=== PATIENT | female | born 1950 | race Caucasian/White ===

== ENCOUNTER 2019-11-23 09:45 | Outpatient (RCR) | payer MEDICARE, SELFPAY ==
--- NOTE | 2019-11-18 10:54 | PTOPEVAL ---
INITIAL PHYSICAL THERAPY EVALUATION and PLAN OF CARE Thank you for referring Azul to [facility]. She will be seen in PT 1x/wk x 3 wks. Please review, sign, date and return this plan of care PORTIA. I agree with and certify that the following plan of care is medically necessary. Referring Physician Date Admitting Provider: Attending Provider: PHYSICIAN NOT ON STAFF Referring Provider: *PT Outpatient Evaluation Start: 11/18/19 09:43 Freq: Status: Active Protocol: Document 11/18/19 09:35 KYM (Rec: 11/18/19 10:51 KYM [id number]) Therapy Assessment Status Assessment Status Assessment Status Evaluation Outpatient Past Medical History Neurological History Hx Neurological Disorders No Significant History Cardiovascular History Hx Hypercholesterolemia Yes Hx Hypertension Yes Respiratory History Hx Respiratory Disorders No Significant History Gastrointestinal History Hx Diverticulitis Yes Hx Gastroesophageal Reflux Disease Yes Hx Other Gastrointestinal Disorders Yes: Rectal prolapse Genitourinary History Hx Genitourinary Disorders No Significant History Musculoskeletal History Hx Arthritis Yes: generalized Hx Fractures Yes: R patella-ORIF Endocrine History Hx Endocrine Disorders No Significant History Reproductive History Hx Hysterectomy Yes: 2010 - Cancer cells - cervix Other History Hx Cancer Yes: basal cell - removed Evaluation Information Problem Diagnosis Rectal prolapse, pelvic floor weakness Onset ~ 3 years ago Subjective Information When performing hygiene post Query Text:As Reported By Patient/ BM felt something, thought it Family was just hemorrhoids. Told PCP about it - was just given cream. Told him this year that she wanted something done about it. Was sent over to [facility]. Defacogram - some residual present, needed to push a second time -but she wasn't feeling well that day. Does have fecal leakage does were a pad. Usually type 4 BM from [place] Stool Chart Does have bouts of diarrhea and constipation at times. Diagnostic Tests Other Tests For This Problem Yes: Defacogram, cystoscopy Prior Level of Function Activity Level (Last 3 Months) Hand Dominance Right
--- NOTE | 2019-12-02 09:34 | PCPTNOTE ---
Patient called & cancelled scheduled appointment this date due to unknown reason. This was her re-eval appointment - will await to see if she reschedules this appointment.
--- NOTE | 2019-12-09 12:57 | PCPTNOTE ---
PHYSICAL THERAPY DISCHARGE NOTE Admitting Provider: Attending Provider: PHYSICIAN NOT ON STAFF Patient:Azul Her Date of :1950 Azul has not returned for any further treatments since 11/23/2019. She called to cancel her 12/02/19 re evaluation appointment and has not called to reschedule. She was seen for 2 visits. She will be discharged from physical therapy at this time. The goals have been partially achieved. She was provided with HEP as well as urge strategies for diarrhea and loose stools. Thank you for referring Azul to [facility]. Please review, sign, date and return this discharge summary PORTIA. I have been updated about Azul's current status and I agree with discharge from the above service at this time. Referring Physician Date
== END 2019-12-10 10:29 | disposition home or self-care (01) ==
LOC: ANHPT 09:45
PROVIDERS: PCP Internal Medicine Infectious Disease
DX: K62.3 Rectal prolapse (principal); N81.89 Other female genital prolapse
CPT/HCPCS: 97110; 97161

== ENCOUNTER → 2020-10-10 10:25 | Outpatient (REF) | payer MEDICARE, SELFPAY | LOC: ANHLAB 10:25 | PROVIDERS: PCP Internal Medicine Infectious Disease; Visit Provider Nurse Practitioner | DX: C44.612 Basal cell carcinoma of skin of right upper limb, including shoulder (principal); C44.712 Basal cell carcinoma of skin of right lower limb, including hip | CPT/HCPCS: 88305 ==

== ENCOUNTER → 2020-11-27 09:34 | Outpatient (REF) | payer MEDICARE, SELFPAY | LOC: ANHLAB 09:34 | PROVIDERS: PCP Internal Medicine Infectious Disease; Visit Provider Nurse Practitioner | DX: C44.712 Basal cell carcinoma of skin of right lower limb, including hip (principal); C44.612 Basal cell carcinoma of skin of right upper limb, including shoulder | CPT/HCPCS: 88305; 88331; 88332 ==

== ENCOUNTER 2024-10-14 00:30 | Day surgery (SDC) | payer MEDICARE, SELFPAY ==
[2024-10-08 09:28] VITALS: BMI 28.1
--- NOTE | 2024-10-08 09:46 | SUR.PREOP ---
Spoke with patient regarding medication Plavix. Verbalizes understanding that the last dose is to be taken on 10/09/[address] Berry to start 325mg asprin on the first day plavix is held. The Endoscopist will instruct them when to restart after the procedure.
--- OUTSIDE RECORDS SUMMARY | 2024-10-14 00:32 | XMS_ITS | Patient Health Summary ---
Author Organization [facility] Address [address] [place] [address] Care Team Providers Care Burial Vault Deliverer And Installer Name Role Phone Bear Ling MD Primary Care Provider [phone] Note from Formerly named [facility],non-owned Affiliates and Associated Physician Practices is amultiple site organization consisting of ambulatory clinics and hospital sitesin [place], [place], [place] and [place]. This disclosure is being madepursuant to the Care Everywhere program and may not contain all information available regarding this patient. Last updated 18.[facility] Allergies * Codeine(Nausea and/or Vomiting) Medications * Be aware that medications may not be up to date on this document. Alwaysverify current medications with the patient. * Calcium Carbonate-Vit D-Min (Calcium-Vitamin D-Minerals) 600-800 MG-UNIT CHEW Take 600 mg by mouth once daily * lisinopril-hydroCHLOROthiazide (Prinzide; Zestoretic) 20-25 MG tablet(Started 04/30/2024) Take 1 (one) tablet by mouth once daily * metoprolol tartrate IR (Lopressor) 25 MG tablet(Started 02/23/2024) Take 0.5 (one-half) tablet by mouth 2 times daily * omeprazole (PriLOSEC) 20 MG capsule(Started 05/03/2024) Take 1 (one) capsule by mouth once daily * pravastatin (Pravachol) 20 MG tablet(Started 05/03/2024) Take 1 (one) tablet by mouth once daily * multivitamin daily tablet Take 1 (one) tablet by mouth daily with food * aspirin EC (Ecotrin) 81 MG tablet(Started 05/13/2024) Take 1 (one) tablet by mouth once daily 2 refills by 05/13/2025 * clopidogrel (plaVIX) 75 MG tablet(Started 05/13/2024) Take 1 (one) tablet by mouth once daily 2 refills by 05/13/2025 Active Problems Problem Noted Date Diagnosed Date Paroxysmal atrial fibrillation 05/07/2024 Social History Tobacco Use Types Packs/Day Years Used Date Smoking Tobacco: Never Smokeless Tobacco: Never Tobacco Cessation:Counseling Given: Not Answered Alcohol Use Standard Drinks/Week Comments Never 0 (1 standard drink = 0.6 oz pur e alcohol) Sex and Gender Information Value Date Recorded Sex Assigned at Not on file Gender Identity Not on file Sexual Orientation Not on file Last Filed Vital Signs Vital Sign Reading Time Taken Comments Blood Pressure 131/70 05/13/2024 12:45 PM CDT Pulse 59 05/13/2024 12:45 PM CDT Temperature 37.2 C (98.9 F) 05/13/2024 10:30 AM CDT Respiratory Rate 15 05/13/2024 12:45 PM CDT Oxygen Saturation 94% 05/13/2024 12:45 PM CDT Inhaled Oxygen Concentration - - Weight 89.8 kg (198 lb) 05/13/2024 6:05 AM CDT Height 177.8 cm (5' 10 ) 05/13/2024 6:05 AM CDT Body Mass Index 28.41 05/13/2024 6:05 AM CDT Medical Devices Implanted Type Area Promotions Specialist Device Identifier Shelf Expiration Date Model / Serial / Lot Dev Clsr 27mm Watchman Flx Pro Lt Atr - [id number] Implanted:Qty: 1 on 05/13/2024 by Stef Berry MD at [facility] [employer] [id number] 03/04/2027 [id number] / [id number] / [id number] Procedures * PREPARE RBC LEUKOREDUCED UNIT(Performed 05/14/2024) * ECHO SYLVESTER W INTERVENTION(Performed 05/13/2024) Performed for Paroxysmal atrial fibrillation (HCC) * CCL LEFT ATRIAL APPENDAGE CLOSURE(Performed 05/13/2024) Performed for Paroxysmal atrial fibrillation (HCC) * ENDOTRACHEAL TUBE NOTE(Performed 05/13/2024) * ACT LR - POCT ([facility])(Performed 05/13/2024) * ACT LR - POCT ([facility])(Performed 05/13/2024) * BLOOD TYPE VERIFICATION(Performed 05/13/2024) * TYPE + SCREEN PANEL(Performed 05/13/2024) * CBC W/O DIFFERENTIAL(Performed 05/13/2024) Performed for Paroxysmal atrial fibrillation (HCC) * BASIC METABOLIC PANEL (CALCIUM TOTAL)(Performed 05/13/2024) Performed for Paroxysmal atrial fibrillation (HCC) * CT CARDIAC ANGIO STRUCT MORPH(Performed 05/04/2024) Performed for Abnormality of left atrial appendage (HCC) * CREATININE - POCT INTERFACED(Performed 05/04/2024) * SYLVESTER OUTSIDE STUDY(Performed 04/19/2024) Performed for Paroxysmal atrial fibrillation (HCC) Results * PREPARE (CROSSMATCH) RBC UNIT(S), 4 Units (05/14/2024 1:17 AM CDT) Unit Description AS1 LR PRBC [facility] Unit ABO A [facility] Unit POS [facility] Product Number R02 [facility] Unit Donor # [id number] [facility] Unit [facility] Product [facility] [id number] [facility] Blood Type Barcode 6200 [facility] Expiration Date S BLOOD BANK LAB Unit Description AS1 LR PRBC [facility] Unit ABO A [facility] Unit POS [facility] Product Number R02 [facility] Unit Donor # [id number] [facility] Unit Status released [facility] Product Code [id number] [facility] Blood Type Barcode 6200 [facility] Expiration Date S [facility]LO[facility] Unit Description AS1 LR PRBC [facility] Unit ABO A [facility] Unit POS [facility] Product Number R02 [facility] Unit Donor # [id number] [facility] Unit Status released [facility] Product Code [id number] [facility] Blood Type Barcode 6200 [facility] Expiration Date S BLOOD [facility]ANK LAB Unit Description AS1 LR PRBC [facility] Unit ABO A [facility] Unit Rh POS [facility] Product Number R02 [facility] Unit Donor # [id number] [facility] Unit Status released [facility] Product Code [id number] [facility] Blood Type Barcode 6200 [facility] Expiration Date S BLOOD BANK LAB Blood Bank BLOOD SPECIMEN / Unknown 05/13/2024 6:14 AM CDT Mckenna Joyner SEAFOOD PACKER-RETAIL SPECIALIST LAB - BLOOD BA NK ORDERABLES [facility] [address] [place] [address], [facility] [phone] * ECHO SYLVESTER W INTERVENTION (05/13/2024 9:30 AM CDT) Anatomical Region Laterality Modality Ultrasound 05/13/2024 8:06 AM CDT Narrative 05/28/2024 3:05 PM CDT Summary * There is no thrombus noted in the left atrial appendage. * Left atrial appendage measures 21 mm wide by 22 mm deep at 0 degrees, 20 mm wide by 24 mm deep at 45 degrees, 21 mm wide by 22 mm deep at 90 degrees, and 19 mm wide by 19 mm deep at 135 degrees. * Successful implantation of a 27 mm Watchman FLX Pro device. * Watchman device is well positioned within the left atrial appendage with no james-device leak. Patient Info Name: Azul Her Age: 73 years : 1950 Gender: Female Exam Date: 05/13/2024 8:06 AM Patient Status: I/P Study Site: [facility] Primary Location: [facility] [address] EStudy Info Exam Type: ECHO SYLVESTER W INTERVENTION Indications I48.0 - Paroxysmal atrial fibrillation (HCC) * A 2D, 3D, color Doppler and spectral Doppler transesophageal echocardiogram was performed. * During the study the esophageal, transgastric, and descending thoracic views were captured. Staff Referring Physician: Mckenna Joyner Ordering Provider: Mckenna Joyner Attending Physician: Mckenna Joyner Hat Cone Inspector: James Dey Medications * Sedation administered and monitored by anesthesia staff. Procedure Details Probe passed by the drawing press operator without difficulty. Atrial Appendage There is no thrombus noted in the left atrial appendage. Left atrial appendage measures 21 mm wide by 22 mm deep at 0 degrees, 20 mm wide by 24 mm deep at 45 degrees, 21 mm wide by 22 mm deep at 90 degrees, and 19 mm wide by 19 mm deep at 135 degrees. Successful implantation of a 27 mm Watchman FLX Pro device. Watchman device is well positioned within the left atrial appendage with no james-device leak. Pericardium/Pleural There is no pericardial effusion. Report Signatures Finalized by Dionte Patterson on 05/28/2024 03:05 PM Procedure Note Dionte Patterson MD - 05/28/2024 Summary * There is no thrombus noted in the left atrial appendage. * Left atrial appendage measures 21 mm wide by 22 mm deep at 0 degrees,20 mm wide by 24 mm deep at 45 degrees, 21 mm wide by 22 mm deep at 90degrees, and 19 mm wide by 19 mm deep at 135 degrees. * Successful implantation of a 27 mm Watchman FLX Pro device. * Watchman device is well positioned within the left atrial appendagewith no james-device leak. Patient Info Name: Azul Her Age: 73 years : 1950 Gender: Female Exam Date: 05/13/2024 8:06 AM Patient Status: I/P Study Site: [facility] Primary Location: [facility] [address] EStudy Info Exam Type: ECHO SYLVESTER W INTERVENTION Indications I48.0 - Paroxysmal atrial fibrillation (HCC) * A 2D, 3D, color Doppler and spectral Doppler transesophagealechocardiogram was performed. * During the study the esophageal, transgastric, and descendingthoracic views were captured. Staff Referring Physician: Mckenna Joyner Ordering Provider: Mckenna Joyner Attending Physician: Mckenna Joyner Hat Cone Inspector: James Dey Medications * Sedation administered and monitored by anesthesia staff. Procedure Details Probe passed by the drawing press operator without difficulty. Atrial Appendage There is no thrombus noted in the left atrial appendage. Left atrial appendage measures 21 mm wide by 22 mm deep at 0 degrees, 20 mm wide by 24mm deep at 45 degrees, 21 mm wide by 22 mm deep at 90 degrees, and 19 mm wideby 19 mm deep at 135 degrees. Successful implantation of a 27 mm Watchman FLXPro device. Watchman device is well positioned within the left atrialappendage with no james-device leak. Pericardium/Pleural There is no pericardial effusion. Report Signatures Finalized by Dionte Patterson on 05/28/2024 03:05 PM Mckenna Joyner SEAFOOD PACKER-RETAIL SPECIALIST ECHO CUPID * CCL LEFT ATRIAL APPENDAGE CLOSURE (05/13/2024 8:55 AM CDT) Anatomical Region Laterality Modality X-Ray Angiograph y Narrative 05/13/2024 9:24 AM CDT Successful placement of a 27 mm Watchmen FLX device in the left atrial appendage . . Procedure Details Estimated Blood Loss: 5 mL Procedure Details and Comments: The procedure was performed under general anesthesia with transesophageal echocardiographic guidance. The patient was brought to the stucco laborer in post-absorptive state and IV antibiotic was administered. Venous access was obtained in the right femoral vein using a micropuncture needle. A 6-Persian sheath was inserted in the right femoral vein. Heparin was administered intravenously. Preclose sutures were deployed. A J-wire was advanced through the sheath and positioned in the superior vena cava, and an 16F Dryseal sheath was inserted. The VersaCross Connect Libra transseptal sheath, telescoped into the Watchman FX double curve sheath, was then inserted over the wire into the superior vena cava. Under fluoroscopic and transesophageal echocardiographic guidance, the transseptal sheath was pulled into the right atrium, and transseptal puncture was performed. The transseptal wire was advanced into the left atrium. Over the wire, the needle and transseptal sheath/dilator were advanced further into the left atrium. The transseptal needle, sheath and dilator were removed and the Watchman FX double curve was de-aired. Adequate anticoagulation was confirmed by performing ACT. A pigtail catheter was inserted over the wire and positioned in the left atrial appendage. An angiogram of the left atrial appendage was performed to assess its size and morphology and to determine the appropriate positioning of the Watchman FLX Pro device. The widest measured appendage orifice dimension was 20 mm. No thrombus was noted in the appendage. The Watchman FLX Pro device was prepped with flush and de-airing was confirmed. The pigtail catheter was removed from the delivery sheath. A 27-mm Watchman FLX Pro device was then inserted through the double curve sheath and deployed in the left atrial appendage using fluoroscopic and transesophageal echocardiographic guidance. After deployment, the position of the device was checked angiographically and in multiple SYLVESTER views. A 'tug-test' was then performed to check the anchoring of the device in the appendage. Size measurements of the device were performed in several SYLVESTER views to assess the compression. The compression was estimated to be 22-30%. Using color-flow Doppler, seal of left atrial appendage was assessed. There was no leak around the device. The delivery sheath was pulled back and the cable was detached from the device. The cable and the sheath were pulled out. The Preclose sutures were then tightened and the 18-Persian sheath was removed. Adequate hemostasis was noted. The patient was returned to the post-anesthesia care unit in stable condition. Common Conclusions Successful placement of a 27 mm Watchmen FLX device in the left atrial appendage . Recommendations -Following the procedure, the patient should be placed on aspirin 81mg a day and clopidogrel 75 mg until adequate seal is confirmed. Stef Berry MD CV CARDIAC CATH PAMELAI Asael LOMELIS * ETT LINE PERFORMABLE (05/13/2024 8:39 AM CDT) Narrative Jasmyne Mcintosh APRN-NINI - 05/13/2024 8:39 AM CDT Jasmyne Mcintosh APRN-CRNA 05/13/2024 8:40 AM Endotracheal Tube Placement: Patient Location: OR. Intubation Event Date/Time: 05/13/2024 8:39 AM Procedure: intubation (90448) Procedure Section: Sedation: under general anesthesia. Indications for Airway Management: anesthesia Induction: standard IV Patient Position: sniffing Mask Ventilation: easy. Blade Type: Yang Blade Size: 3 Laryngoscopy View: grade 2 (partial cords) Intubation Adjuncts: stylet Tube: endotracheal tube Placement: oral Tube type: cuff - inflated Tube Size (MM): 7 Depth of Insertion (CM): 22 Measured From: lips Cuff Inflated With: air Number of Attempts: 1. Placement Verified By: bilateral breath sounds and CO2 monitor CXR Findings: ETT in proper place. Tube secured with: adhesive tape. Dentition unchanged? Yes Difficult Airway? No. Procedure Start Time: 05/13/2024 8:39 AM. Staff Section Anesthesia Provider: Jasmyne Mcintosh APRN-CRNA, Performed the procedure Holden Brady DO GENERAL ANESTHESIA O RDERABLES * ACT LR - POCT ([facility]) (05/13/2024 8:34 AM CDT) Only the most recent of2 resultswithin the time period is included. ACT LR 328 See result comments sec 05/14/2024 7:09 AM CDT [facility] Blood BLOOD SPECIMEN / Unknown 05/13/2024 8:34 AM CDT 05/14/2024 7:09 AM CDT Narrative [facility] - 05/14/2024 7:09 AM CDT ACT-LR Therapeutics ranges are: Cardiac stucco laborer = 200-300 seconds Sheath pull = ACT less than 170 seconds EPS lab = 200-240 seconds Sheath pull = ACT less than 140 seconds Radiology : CT/Angio lab = 200-300 seconds Sheath pull = ACT less than 200 seconds Expected range of normal volunteers: ACT-LR = 113-149 seconds Expected range of a Non-heparin patients: ACT-LR = 89-169 seconds From established ranges from the company manual Mckenna Joyner SEAFOOD PACKER-RETAIL SPECIALIST LAB - COAGULAT ION ORDERABLES [facility] [address] [place] [phone], [facility] [phone] * BLOOD TYPE VERIFICATION (05/13/2024 6:17 AM CDT) ABO Rh A POS 05/13/2024 6:5 5 AM CDT [facility] Blood Bank BLOOD SPECIMEN / Unknown Venipuncture / Unknown 05/13/2024 6:17 AM CDT 05/13/2024 6:25 AM CDT Stef Berry MD LAB - BLOOD BANK ORD ERABLES Performing Organization Address City/[facility]/ZIP Co de Phone Number [facility] [address] [place] [address], [facility] [phone] * TYPE + SCREEN PANEL (05/13/2024 6:06 AM CDT) Antibody Screen NEG 6:55 AM CDT [facility] ABO Rh A POS 05/13/2024 6:55 AM CDT [facility] Blood Bank BLOOD SPECIMEN / Unknown Venipuncture / Unknown 05/13/2024 6:06 AM CDT 05/13/2024 6:14 AM CDT Mckenna Joyner APRN-CAROLANN LAB - BLOOD BA NK ORDERABLES [facility] [address] [place] [address], [facility] [phone] * CBC W/O DIFFERENTIAL (05/13/2024 6:06 AM CDT) WBC 5.5 4.0 - 10.7 x10E9/L 05/13/2024 6:41 AM [facility] RBC Count 4.05 3.90 - 5.20 x10E12/L 05/13/2024 6:41 AM T [facility] Hemoglobin 12.3 11.9 - 15.8 g/dL 05/13/2024 6:41 AM T [facility] Hematocrit 36.2 34.8 - 46.1 % 05/13/2024 6:41 AM [facility] MCV 89.4 80.0 - 98.0 fL 05/13/2024 6:41 AM [facility] MCH 30.4 26.7 - 33.6 pg 05/13/2024 6:41 AM T [facility] MCHC 34.0 31.7 - 36.3 g/dL 05/13/2024 6:41 AM [facility] RDW-CV 12.9 11.3 - 14.8 % 05/13/2024 6:41 AM [facility] Platelet Count 248 150 - 420 x10E9/L 05/13/2024 6:41 AM [facility] MPV 10.0 7.8 - 11.4 fL 05/13/2024 6:41 AM [facility] Blood BLOOD SPECIMEN / Unknown Venipuncture / Unknown 05/13/2024 6:06 AM CDT 05/13/2024 6:27 AM T Mckenna Joyner SEAFOOD PACKER-RETAIL SPECIALIST LAB - HEMATOLO GY ORDERABLES [facility] [address] [place] [phone], [facility] [phone] * (ABNORMAL) BASIC METABOLIC PANEL (CALCIUM TOTAL) (05/13/2024 6:06 AM T) BUN 17 7 - 26 mg/dL 05/13/2024 6:54 AM [facility] Creatinine 0.82 0.56 - 0.96 mg/dL 05/13/2024 6:54 AM [facility] Sodium 138 136 - 145 mmol/L 05/13/2024 6:54 AM [facility] Potassium 4.0 3.5 - 4.5 mmol/L 05/13/2024 6:54 AM [facility] Chloride 104 98 - 107 mmol/L 05/13/2024 6:54 AM [facility] CO2 28 22 - 29 mmol/L 05/13/2024 6:54 AM [facility] Glucose 113 70 - 115 mg/dL 05/13/2024 6:54 AM [facility] Calcium 10.6(H) 8.4 - 10.2 mg/dL 05/13/2024 6:54 AM [facility] Anion Gap 6 6 - 16 05/13/2024 6:54 AM [facility] BUN/Creatinine Ratio 21 7 - 23 05/13/2024 6:54 AM CDT [facility] Osmolality Calculated 288 275 - 295 mOsm/kg 05/13/2024 6:54 AM CDT [facility] eGFR by CKD-EPI 75(L) >=90 mL/min/1.7 3 m2 05/13/2024 6:54 AM CDT [facility] Blood BLOOD SPECIMEN / Unknown Venipuncture / Unknown 05/13/2024 6:06 AM CDT 05/13/2024 6:27 AM CDT Mckenna Joyner SEAFOOD PACKER-RETAIL SPECIALIST LAB - CHEMISTR Y ORDERABLES [facility] [address] [place] [address], [facility] [phone] * CT Cardiac Angio Struct Morph (05/04/2024 10:16 AM CDT) Anatomical Region Laterality Modality Chest Computed Tomogra phy 05/04/2024 11:1 3 AM CDT Impressions 05/04/2024 11:44 AM CDT Impression: Left atrial appendage measurements for watchman procedure are described above. Other findings: Diffuse atherosclerotic calcification of the coronary arteries and calcium score was 790. There is associated mild (less than 50%) lumen narrowing of LAD, LCx and RCA. > Interpreting Provider: Amelia Brown MD on 05/04/2024 11:44 AM Narrative 05/04/2024 11:44 AM CDT PROCEDURE: CT CARDIAC ANGIO STRUCT MORPH, DATE/TIME OF EXAM: 05/04/2024 10:17 AM, LOCATION [facility] INDICATION: Q20.8: Abnormality of left atrial appendage (HCC) ADDITIONAL CLINICAL INFORMATION: Ordering Provider Reason For Exam: Abnormality of left atrial appendage (see media order) COMPARISON: None. Procedure: Computed tomographic angiography, for assessment of left atrial appendage before watchman procedure was done with intravenous contrast material, including 3D image post-processing (including evaluation of cardiac structure and morphology, assessment of cardiac function, and evaluation of venous structures, if performed). Acquisition mode: Prospective ECG triggering. Contrast type and volume:Isovue 86 mL. Injection: Biphasic. Medication used: None. Complications: None.. Image quality: Good. Signal noise and artifacts. No significant artifacts noted. Heart rate: 44 bpm. Left Atrial Appendage measurements for Watchman procedure. Measurements were obtained in 73% R-R interval. DARSHAN type: Chicken wing type. DARSHAN ostial plane: Diameter-max/min 25/16 mm. Area: 3.2 sq. cm Perimeter: 68 mm. Landing zone measured 10 mm from osteal plane. Landing zone diameter-max/min 20/20 mm. DARSHAN length (from landing zone to the tip of the dominant lobe): 16 mm. Coumadin Ridge thickness: 3 mm. Pulmonary veins: Normal pulmonary venous drainage. There were four noted pulmonary veins, two on the right and two on the left. Other cardiac findings: Left Atrium: The left atrium is normal size with no left atrial appendage filling defects. Left Ventricle: The ventricular cavity size is within normal limits. There is no stigmata of prior infarction. There is no abnormal filling defects. Pulmonary arteries: Normal caliber without proximal filling defects. Pericardium: Normal thickness with no significant effusion or calcium present. Cardiac valves: There is no thickening or calcification in the aortic or mitral valves. Aorta: Normal caliber with no significant disease. Coronaries: Coronary Calcium (Agatston): TOTAL: 790 Left Main: The left main is a large caliber vessel with a normal take off from the left coronary cusp that bifurcates to form a LAD artery and LCx artery. There is no plaque or stenosis. Left anterior descending artery: Diffuse calcified plaques causing mild luminal narrowing (less than 50% lumen narrowing). The LAD gives off two patent diagonal branches. Left circumflex artery: The LCx is nondominant and diffuse calcified plaques noted with less than 50% lumen narrowing. The LCX gives off a patent obtuse marginal branch. Right coronary artery: Diffuse calcified plaques noted. There is associated mild (less than 50% lumen narrowing). The RCA terminates as a PDA and right posterolateral branch without evidence of plaque or stenosis. Extra cardiac findings: Chest: No significant findings in the available limited view of lungs and mediastinal structures. Procedure Note Amelia Brown MD - 05/04/2024 PROCEDURE: CT CARDIAC ANGIO STRUCT MORPH, DATE/TIME OF EXAM: 05/04/2024 10:17 AM, LOCATION [facility] INDICATION: Q20.8: Abnormality of left atrial appendage (HCC) ADDITIONAL CLINICAL INFORMATION: Ordering Provider Reason For Exam: Abnormality of left atrial appendage (see media order) COMPARISON: None. Procedure: Computed tomographic angiography, for assessment of left atrialappendage before watchman procedure was done with intravenous contrast material, including 3D image post-processing (including evaluation of cardiac structure and morphology, assessment of cardiac function, and evaluationof venous structures, if performed). Acquisition mode: Prospective ECG triggering. Contrast type and volume:Isovue 86 mL. Injection: Biphasic. Medication used: None. Complications: None.. Image quality: Good. Signal noise and artifacts. No significantartifacts noted. Heart rate: 44 bpm. Left Atrial Appendage measurements for Watchman procedure. Measurements were obtained in 73% R-R interval. DARSHAN type: Chicken wing type. DARSHAN ostial plane: Diameter-max/min 25/16 mm. Area: 3.2 sq. cm Perimeter: 68 mm. Landing zone measured 10 mm from osteal plane. Landing zone diameter-max/min 20/20 mm. DARSHAN length (from landing zone to the tip of the dominant lobe):16 mm. Coumadin Ridge thickness: 3 mm. Pulmonary veins: Normal pulmonary venous drainage. There were four noted pulmonary veins, two on the right and two on the left. Other cardiac findings: Left Atrium: The left atrium is normal size with no left atrialappendage filling defects. Left Ventricle: The ventricular cavity size is within normal limits. There is no stigmata of prior infarction. There is no abnormal filling defects. Pulmonary arteries: Normal caliber without proximal filling defects. Pericardium: Normal thickness with no significant effusion or calcium present. Cardiac valves: There is no thickening or calcification in the aortic or mitral valves. Aorta: Normal caliber with no significant disease. Coronaries: Coronary Calcium (Agatston): TOTAL: 790 Left Main: The left main is a large caliber vessel with a normal takeoff from the left coronary cusp that bifurcates to form a LAD artery and LCx artery. There is no plaque or stenosis. Left anterior descending artery: Diffuse calcified plaques causing mild luminal narrowing (less than 50% lumen narrowing). The LAD gives off two patent diagonal branches. Left circumflex artery: The LCx is nondominant and diffuse calcified plaques noted with less than 50% lumen narrowing. The LCX gives off a patent obtuse marginal branch. Right coronary artery: Diffuse calcified plaques noted. There isassociated mild (less than 50% lumen narrowing). The RCA terminates as a PDA and right posterolateral branch without evidence of plaque or stenosis. Extra cardiac findings: Chest: No significant findings in the available limited view of lungsand mediastinal structures. Impression: Left atrial appendage measurements for watchman procedure are described above. Other findings: Diffuse atherosclerotic calcification of the coronary arteries and calcium score was 790. There is associated mild (less than 50%) lumen narrowing of LAD, LCx and RCA. > Interpreting Provider: Amelai Brown MD on 1:44 AM Stef Berry MD CT ORDERABLES * (ABNORMAL) CREATININE - POCT INTERFACED (05/04/2024 10:06 AM CDT) [facility] Signature Creatinine POCT 0.77 0.30 - 1.30 mg/dL 05/04/2024 10:46 AM CDT [facility] eGFR 81(L) >=90 mL/min/1.7 3 m2 05/04/2024 10:46 AM CDT [facility] Blood BLOOD SPECIMEN / Unknown 05/04/2024 10:06 AM CDT 05/04/2024 10:46 AM CDT Stef Berry MD LAB - POINT OF CARE ORDERABLES [facility] [address] [place] [address], [facility] [phone] * [facility] OUTSIDE STUDY (04/19/2024 12:00 AM CDT) Narrative [facility] - 05/04/2024 1:46 PM CDT This is a study from an outside facility that has been uploaded into PACS. 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
--- OUTSIDE RECORDS SUMMARY | 2024-10-14 00:32 | XMS_ITS | Clinical Summary ---
Author Organization [facility] Address [address] [place] [address] Phone Care Team Providers Care Outdoor Recreation Specialist Name Role Phone KAYKAY ANN, AMPARO Mendoza Unavailable [phone] MILAN ANN, JANET Ashby Primary Care Provider [phone] Reason for Visit and Chief Complaint gynecologic annual exam - The Chief Complaint is: WWE; pt states no c/o Problems Includes: Problems addressed during this encounter and other active Problems Current Visit Onset Date Resolved Date Provider Conditio n Status History of Cervical Dysplasia 12/31/2016 AMPARO MCCRACKEN MD Active Last Documented On 12/31/2016 9:11AM ; [facility] Note: Unchanged Breast Fibrocystic Disease 12/24/2013 AMPARO MCCRACKEN MD Active Last Documented On 12/24/2013 9:59AM ; [facility] Note: Unchanged Plan of Treatment - Follow-up visit 2 years or as needed - Last Documented On 01/22/2019 12:02PM ; [facility] She will let us know if she has other problems in the meantime. - Last Documented On 01/22/2019 12:02PM ; [facility] Instructions to patient Instructions for patient : B reast Self Exam discussed Last Documented On 9 11:45AM ; [facility] Education and Decision Aids were provided during visit for: STD screening offered and de clined Last Documented On 9 11:45AM ; [facility] Bone Mineral Density Screeni ng guidelines reviewed : will do after next visit (last in 2015: will do 5 yrs apart) Last Documented On 9 12:02PM ; [facility] Patient Education: Daily surinder cium and vitamin D Last Documented On 9 11:45AM ; [facility] Patient Education: weight be aring exercise Last Documented On 9 11:45AM ; [facility] Colonoscopy screening guidel wally discussed Last Documented On 9 11:45AM ; [facility] Assessments Includes: Assessments from this encounter Findings - Fibrocystic disease of breast - Last Documented On 01/22/2019 12:02PM ; [facility] - NORMAL FEMALE EXAM - Last Documented On 01/22/2019 12:02PM ; [facility] - History of cervical dysplasia - Last Documented On 01/22/2019 12:02PM ; [facility] - Osteopenia - Last Documented On 01/22/2019 12:02PM ; [facility] - Screening Malig. Neoplasm Rectum - Last Documented On 01/22/2019 12:02PM ; [facility] Instructions Includes: Instructions from this encounter Instructions to patient Instructions for patient : B reast Self Exam discussed Last Documented On 9 11:45AM ; [facility] Education and Decision Aids were provided during visit for: STD screening offered and de clined Last Documented On 9 11:45AM ; [facility] Bone Mineral Density Screeni ng guidelines reviewed : will do after next visit (last in 2014: will do 5 yrs apart) Last Documented On 9 12:02PM ; [facility] Patient Education: Daily surinder cium and vitamin D Last Documented On 9 11:45AM ; [facility] Patient Education: weight be aring exercise Last Documented On 9 11:45AM ; [facility] Colonoscopy screening guidel wally discussed Last Documented On 9 11:45AM ; [facility] Medical Equipment - Implanted Devices Includes: Current Devices No Medical Equipment Recorded Medications Includes: Medications discussed during this encounter and other current Medications Discontinued / Stopped on this date on 12/22/2012 Lotensin HCT 10-12.5 MG OR TABS Provider: Diagnosis: Last Documented On 9 11:17AM By CAROLINA VELASQUEZ ; [facility] Current Medications (continue as prescribed) [facility] Vitamin D3 25 MCG (1000 UT) Oral Tablet Chewable 0 04/28/2023 Provider: Diagnosis: Last Documented On 04/28/2023 1:06PM By James VELASQUEZ ; [facility] Calcium 600 MG Oral Tablet 04/28/2023 Provider: Diagnosis: Last Documented On 04/28/2023 1:06PM By James VELASQUEZ ; [facility] Lisinopril-hydroCHLOROthiazide 20-25MG Oral Tablet Provider: Diagnosis: one tablet Last Documented On 9 11:17AM By CAROLINA VELASQUEZ ; [facility] Pravastatin Sodium 20MG Oral Tablet 01/22/2019 Provi cesario: Diagnosis: once day Last Documented On 9 11:17AM By CAROLINA VELASQUEZ ; [facility] PriLOSEC 40 MG OR CPDR 12/24/2013 Provider: Diagnosis: Last Documented On 4 9:43AM By LUCIE OCHOA LPN ; [facility] QC Womens Daily Multivitamin OR TABS 12/24/2013 Prov ider: Diagnosis: Last Documented On 4 9:43AM By LUCIE OCHOA LPN ; [facility] Medications Administered Includes: Administered Medications from this encounter No Administered Medications Recorded Vital Signs Includes: Vital Signs from this encounter Vital Name 01/22/2019 11:05A Blood Pressure Sitting (mmHg) 128/68 Height (in) 68.75 Weight (lb) 195.375 Body Mass Index (kg/m2) 29.1 Body Surface Area (m2) 2.0 Last Documented: On 01/22/2019 11:18A M ; [facility] Results Includes: Results discussed during this encounter No Results Recorded For Specified Dates History of Present Illness Includes: History of Present Illness from this encounter HPI DOMINIQUE HANSEN is a 68 year old female. - Medication list reviewed. - No vertigo. 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 Last Documented On 9 11:02AM ; [facility] Marital history 12/20/2011 Last Documented On 9 11:02AM ; [facility] Procedures and Surgical History Includes: Procedures from this encounter Procedures Code Diagnosis Performing Provider Service L ocation Service Date Clinical summary provided to patient Last Documented On 9 11:45AM ; [facility] vaginal Pap smear 13994 Last Documented On 9 11:45AM ; [facility] FIT Test-Fecal Occult negative 62183 Last Documented On 9 11:45AM ; [facility] Surgical History Last Updated Previous colposcopy 01/22/2019 Last Documented On 9 12:02PM ; [facility] History of hysterectomy 12/31/2016 Last Documented On 9 11:02AM ; [facility] Surgical history unchanged 12/24/2013 Last Documented On 9 11:02AM ; [facility] History of total abdominal h ysterectomy RUBI[facility]BSO at [facility] on 04/16/2012 for VIRGIL I in LEEP cone x 2 with cx stenosis with no residual dysplasia in the hyst 12/22/2012 Last Documented On 9 11:02AM ; [facility] Bilateral salpingo-oophorectomy TCK APR 2010 12/20/2011 Last Documented On 9 11:02AM ; [facility] Medical History Includes: Medical History addressed during this encounter Description Last Updated Last mammogram date: 03/13/2017 NAOMI londono 01/22/2019 Last Documented On 9 12:02PM ; [facility] Patient recently had a dexa scan 01/06/2015 at [facility] with T-scores of 3.9 in the spine, -1.2 in the hip neck, and 0.7 in the total hip 01/22/2019 Last Documented On 9 12:02PM ; [facility] A colonoscopy was performed 07/31/15 Dr Crook per pt 01/22/2019 Last Documented On 9 12:02PM ; [facility] Last pap smear date 12/31/2016 01/22/2019 Last Documented On 9 12:02PM ; [facility] Status post tubal ligation 12/31/2016 Last Documented On 9 11:02AM ; [facility] Sexually active 12/27/2014 Last Documented On 9 11:02AM ; [facility] Recent change in medical his tory PT. HAD SKIN CA REMOVED X2--- in the ~R/L THUMB SURGERY----2008 ~11/2013 Dr Scales dxed pt by EGD with hiatal hernia and stomach ulcers 12/24/2013 Last Documented On 9 11:02AM ; [facility] History of benign essential hypertension 12/22/2012 Last Documented On 9 11:02AM ; [facility] History of menopause 12/22/2012 Last Documented On 9 11:02AM ; [facility] LMP: 2000 12/22/2012 Last Documented On 9 11:02AM ; [facility] Primary Care Provider: Dr Ling 013 Last Documented On 9 11:02AM ; [facility] Result: normal 12/22/2012 Last Documented On 9 11:02AM ; [facility] Result: normal 12/22/2012 Last Documented On 9 11:02AM ; [facility] PRIMARY CARE PROVIDER : is Dr Ling Last Documented On 9 11:02AM ; [facility] Vaginal delivery 4 12/20/2011 Last Documented On 9 11:02AM ; [facility] Aborta 1 12/20/2011 Last Documented On 9 11:02AM ; [facility] 5 12/20/2011 Last Documented On 9 11:02AM ; [facility] Para 4 12/20/2011 Last Documented On 9 11:02AM ; [facility] Family History Includes: Family History addressed during this encounter Description Last Updated Maternal aunt's history of m alignant female breast neoplasm mat AUNT--- in her 60's 12/31/2016 Last Documented On 9 11:02AM ; [facility] Maternal history of malignant neoplasm o f the ovary MOM at 74 y old 12/31/2016 Last Documented On 9 11:02AM ; [facility] Paternal uncle's history of malignant neoplasm of large intestine pat UNCLE in his 50's 12/31/2016 Last Documented On 9 11:02AM ; [facility] Diabetes mellitus Paternal aunt and uncl e 12/27/2014 Last Documented On 9 11:02AM ; [facility] Family history of heart disease FATHER/B DIANE 12/27/2014 Last Documented On 9 11:02AM ; [facility] Family history of hypertension PATIENT 0 12/20/2011 Last Documented On 9 11:02AM ; [facility] Review of Systems Includes: Review of Systems from this encounter Gastrointestinal: No nausea, no vomiting, and no hematochezia. Genitourinary: No change in urinary frequency and no feelings of urinary urgency. No urinary loss of control and no incontinence. No dysuria, no stress incontinence, does not feel like bladder is falling out, no vaginal itching or burning, and no vaginal pain during intercourse. No vaginal dryness and no unexplained vaginal bleeding. Musculoskeletal: No arthralgias and no localized joint swelling. Neurological: No recent falls and no difficulty walking. Psychological: No anxiety, no depression, and no sleep disturbances. Mental Status Includes: Mental Status from this encounter Description No anxiety Functional Status Includes: Functional Status from this encounter No Functional Status Recorded Physical Exam Includes: Physical Exam from this encounter Allergies Includes: Active Allergies Substance Type Reaction Onset Date Resolved Date Statu s Codeine Allergy Nausea, Vomiting , Diarrhea / Diarrheal disorder 12/20/2011 Active Last Documented On 3 1:06PM ; [facility] Encounters Encounter Provider Location Date Check-In Time Check-Out Time Diagnosis 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 Neoplasm Rectum,Normal Female Exam,History of Cervical Dysplasia Insurance Includes: Active Insurance Policies Plan Name Member ID Group # Subscriber Relationship Effect mary alice Dates 1 - MEDICARE PART A CLAIMS/NGS [id number] DOMINIQUE Wheat 2 - [place] MEDICARE SUPPLEMENT [id number] PLAN F DOMINIQUE HANSEN Self Clinical Notes Includes: Clinical Notes from this encounter No Clinical Notes Recorded
--- OUTSIDE RECORDS SUMMARY | 2024-10-14 00:32 | XMS_ITS | Referral Summary ---
Author Organization [facility] Address [address] [place] [address] Care Team Providers Care Director Industrial Museum Name Role Phone Bear Ling MD Primary Care Provider [phone] Source Comments [facility] Affiliates and Associated Physician Practices is amultiple site organization consisting of ambulatory clinics and hospital sitesin [place], [place], [place] and [place]. This disclosure is being madepursuant to the Care Everywhere program and may not contain all information available regarding this patient. Last updated 18.[facility] Allergies Active Allergy Reactions Criticality Noted Date Comments Codeine Nausea and/or Vomiting 05/07/2024 Medications * Be aware that medications may not be up to date on this document. Alwaysverify current medications with the patient. Medication Sig Dispensed Refills Start Date End Date Status Calcium Carbonate-Vit D-Min (Calcium-Vitamin D-Minerals) 600-800 MG-UNIT CHEW Take 600 mg by mouth once daily Active lisinopril-hydroCHLOR Othiazide (Prinzide; Zestoretic) 20-25 MG tablet Take 1 (one) tablet by mouth once daily 04/30/2024 Active metoprolol tartrate IR (Lopressor) 25 MG tablet Take 0.5 (one-half) tablet by mouth 2 times daily 02/23/2024 Active omeprazole (PriLOSEC) 20 MG capsule Take 1 (one) capsule by mouth once daily 05/03/2024 Active pravastatin (Pravachol) 20 MG tablet Take 1 (one) tablet by mouth once daily 05/03/2024 Active multivitamin daily tablet Take 1 (one) tablet by mouth daily with food Active aspirin EC (Ecotrin) 81 MG tablet Take 1 (one) tablet by mouth once daily 90 tablet 2 05/13/2024 Active clopidogrel (plaVIX) 75 MG tablet Take 1 (one) tablet by mouth once daily 90 tablet 2 05/13/2024 Active Active Problems Problem Noted Date Diagnosed Date [...] Mass Index 28.41 05/13/2024 6:05 AM CDT Plan of Treatment Not on file Medical Devices Implanted Type Area Defective Cigarette Slitter Device Identifier Shelf Expiration Date Model / Serial / Lot Dev Clsr 27mm Watchman Flx Pro Lt Atr - [id number] Implanted:Qty: 1 on 05/13/2024 by Stef Berry MD at [facility] [id number] 03/04/2027 [id number] / [id number] / [id number] Advance Directives * Full Code (Latest Code Status on File) Date Activated Date Inactivated Comments 05/13/2024 9:29 AM 05/13/2024 2:24 PM Care Teams Director Industrial Museum Relationship Specialty Start Date End Date Bear Ling MD [address] [place] [address] PCP - General 12/13/20
--- OUTSIDE RECORDS SUMMARY | 2024-10-14 00:32 | XMS_ITS | Clinical Summary ---
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 Name Role Phone KAYKAY ANN, AMPARO Mendoza Unavailable [phone] MILAN ANN, JANET Ashby Primary Care Provider [phone] Reason for Visit and Chief Complaint The Chief Complaint is: WWE Problems Includes: Problems addressed during this encounter and other active Problems Current Visit Onset Date Resolved Date Provider Conditio n Status Breast Fibrocystic Disease 12/24/2013 AMPARO MCCRACKEN MD Active Last Documented On 12/24/2013 9:59AM ; [facility] Note: Unchanged Past Visits Onset Date Resolved Date Provider Condition Status History of Cervical Dysplasia 12/31/2016 AMPARO MCCRACKEN MD Active Last Documented On 12/31/2016 9:11AM ; [facility] Note: Unchanged Plan of Treatment - Follow-up visit 2 years or as needed - Last Documented On 02/02/2021 9:25AM ; [facility] She will let us know if she has other problems in the meantime. - Last Documented On 02/02/2021 9:25AM ; [facility] Instructions to patient Instructions for patient : B reast Self Exam discussed Last Documented On 9:09AM ; [facility] Education and Decision Aids were provided during visit for: STD screening offered and de clined Last Documented On 9:09AM ; [facility] Bone Mineral Density Screeni ng guidelines reviewed Last Documented On 9:09AM ; [facility] Patient Education: Daily surinder cium and vitamin D Last Documented On 1 9:09AM ; [facility] Patient Education: weight be aring exercise Last Documented On 9:09AM ; [facility] Colonoscopy screening guidel wally discussed Last Documented On 9:09AM ; [facility] Assessments Includes: Assessments from this encounter Findings - Fibrocystic disease of breast - Last Documented On 02/02/2021 9:25AM ; [facility] - NORMAL FEMALE EXAM - Last Documented On 02/02/2021 9:25AM ; [facility] - Osteopenia - Last Documented On 02/02/2021 9:25AM ; [facility] - Screening Malig. Neoplasm Rectum - Last Documented On 02/02/2021 9:25AM ; [facility] Instructions Includes: Instructions from this encounter Instructions to patient Instructions for patient : B reast Self Exam discussed Last Documented On 9:09AM ; [facility] Education and Decision Aids were provided during visit for: STD screening offered and de clined Last Documented On 9:09AM ; [facility] Bone Mineral Density Screeni ng guidelines reviewed Last Documented On 9:09AM ; [facility] Patient Education: Daily surinder cium and vitamin D Last Documented On 9:09AM ; [facility] Patient Education: weight be aring exercise Last Documented On 9:09AM ; [facility] Colonoscopy screening guidel wally discussed Last Documented On 9:09AM ; [facility] Medical Equipment - Implanted Devices Includes: Current Devices No Medical Equipment Recorded Medications Includes: Medications discussed during this encounter and other current Medications Current Medications (continue as prescribed) [facility] Vitamin D3 25 MCG (1000 UT) Oral Tablet Chewable 0 04/28/2023 Provider: Diagnosis: Last Documented On 04/28/2023 1:06PM By James VELASQUEZ ; [facility] Calcium 600 MG Oral Tablet 04/28/2023 Provider: Diagnosis: Last Documented On 04/28/2023 1:06PM By James VELASQUEZ ; [facility] Lisinopril-hydroCHLOROthiazide 20-25MG Oral Tablet Provider: Diagnosis: one tablet Last Documented On 9 11:17AM By CAROLINA VELASQUEZ ; [facility] Pravastatin Sodium 20MG Oral Tablet 01/22/2019 Provi cesario: Diagnosis: once day Last Documented On 9 11:17AM By CAROLINA VELASQUEZ ; [facility] PriLOSEC 40 MG OR CPDR 12/24/2013 Provider: Diagnosis: Last Documented On 4 9:43AM By LUCIE OCHOA LPN ; [facility] QC Womens Daily Multivitamin OR TABS 12/24/2013 Prov ider: Diagnosis: Last Documented On 4 9:43AM By LUCIE OCHOA LPN ; [facility] Medications Administered Includes: Administered Medications from this encounter No Administered Medications Recorded Vital Signs Includes: Vital Signs from this encounter Vital Name 02/02/2021 09:03A Blood Pressure Sitting (mmHg) 112/70 Temp-Oral (F) 97.7 Height (in) 70 Weight (lb) 199.375 Body Mass Index (kg/m2) 28.6 Body Surface Area (m2) 2.1 Last Documented: On 02/02/2021 9:04AM ; [facility] Results Includes: Results discussed during this encounter No Results Recorded For Specified Dates History of Present Illness Includes: History of Present Illness from this encounter HPI DOMINIQUE HANSEN is a 70 year old female. - Allergy list reviewed - Medication reconciliation performed She states she is already scheduled for rpt raisa next month Social History Description Last Updated Exercising regularly 02/02/2021 Last Documented On 1 9:25AM ; [facility] Former smoker 02/02/2021 Last Documented On 1 9:25AM ; [facility] Not using alcohol 01/22/2019 Last Documented On 1 8:47AM ; [facility] Not using drugs 01/22/2019 Last Documented On 1 8:47AM ; [facility] Sexually active with 1 partners in the l ast year 12/31/2016 Last Documented On 1 8:47AM ; [facility] Smoking status : Former smoker quit at a ge 25 after smoking 10 years 12/31/2016 Last Documented On 1 8:47AM ; [facility] Social history unchanged 12/24/2013 Last Documented On 1 8:47AM ; [facility] 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 Last Documented On 1 8:47AM ; [facility] Marital history 12/20/2011 Last Documented On 1 8:47AM ; [facility] Procedures and Surgical History Includes: Procedures from this encounter Procedures Code Diagnosis Performing Provider Service L ocation Service Date total hysterectomy Last Documented On 1 8:57AM ; [facility] Clinical summary provided to patient Last Documented On 1 9:09AM ; [facility] vaginal Pap smear 86616 Last Documented On 1 9:09AM ; [facility] a colonoscopy was performed 01/24/21n Dr Yordy SALGADO WNL per pt no polyps Last Documented On 1 8:55AM ; [facility] patient recently had a dexa scan 09/12/14 [facility] Last Documented On 1 8:55AM ; [facility] FIT Test-Fecal Occult negative 09238 Last Documented On 1 9:09AM ; [facility] Surgical History Last Updated Surgical / procedural histor y oct or november 2020 skin cancer removed right upper leg and right shoulder 02/02/2021 Last Documented On 1 9:25AM ; [facility] History of Loop electrode excision of ce rvix (LEEP) 201102/02/2021 Last Documented On 1 9:25AM ; [facility] Previous colposcopy 01/22/2019 Last Documented On 1 8:47AM ; [facility] History of hysterectomy 12/31/2016 Last Documented On 1 8:47AM ; [facility] History of total abdominal h ysterectomy RUBI/BSO at [facility] on 04/16/2012 for VIRGIL I in LEEP cone x 2 with cx stenosis with no residual dysplasia in the hyst 12/22/2012 Last Documented On 1 8:47AM ; [facility] Bilateral salpingo-oophorectomy TCK APR 2010 12/20/2011 Last Documented On 1 8:47AM ; [facility] Medical History Includes: Medical History addressed during this encounter Description Last Updated A colonoscopy was performed 01/24/21; Dr Crook per pt 02/02/2021 Last Documented On 1 9:25AM ; [facility] Last mammogram date: 020 with f/u 08/09/20 and scheduled for 02/2021 at [facility] Dr Ling 02/02/2021 Last Documented On 1 9:25AM ; [facility] Result: abnormal 02/02/2021 Last Documented On 1 9:25AM ; [facility] History of colonoscopy fiberoptic was pe rformed 07/31/2015 02/02/2021 Last Documented On 1 9:25AM ; [facility] History of screening mammogram was perfo rmed 07/11/2020 02/02/2021 Last Documented On 1 9:25AM ; [facility] Last pap smear date 01/22/2019 02/02/2021 Last Documented On 1 9:25AM ; [facility] Patient recently had a dexa scan 01/06/2015 at [facility] with T-scores of 3.9 in the spine, -1.2 in the hip neck, and 0.7 in the total hip 01/22/2019 Last Documented On 1 8:47AM ; [facility] Status post tubal ligation 12/31/2016 Last Documented On 1 8:47AM ; [facility] Sexually active 12/27/2014 Last Documented On 1 8:47AM ; [facility] History of a DEXA of the lateral lumbar spine was performed 02/14/2012 12/27/2014 Last Documented On 1 8:47AM ; [facility] Recent change in medical his tory PT. HAD SKIN CA REMOVED X2--- in the 1999's ~R/L THUMB SURGERY----2008 ~11/2013 Dr Scales dxed pt by EGD with hiatal hernia and stomach ulcers 12/24/2013 Last Documented On 1 8:47AM ; [facility] History of benign essential hypertension 12/22/2012 Last Documented On 1 8:47AM ; [facility] History of menopause 12/22/2012 Last Documented On 1 8:47AM ; [facility] LMP: 2000 12/22/2012 Last Documented On 1 8:47AM ; [facility] Primary Care Provider: Dr Ling 013 Last Documented On 1 8:47AM ; [facility] Result: normal 12/22/2012 Last Documented On 1 8:47AM ; [facility] PRIMARY CARE PROVIDER : is Dr Ling Last Documented On 1 8:47AM ; [facility] Vaginal delivery 4 12/20/2011 Last Documented On 1 8:47AM ; [facility] Aborta 1 12/20/2011 Last Documented On 1 8:47AM ; [facility] 5 12/20/2011 Last Documented On 1 8:47AM ; [facility] Para 4 12/20/2011 Last Documented On 1 8:47AM ; [facility] Family History Includes: Family History addressed during this encounter Description Last Updated Family history of malignant female breast neoplasm mat AUNT--- in her 60's ~Daughter- breast cancer 2020- september- chemo- last radiation will be 02/06/21- then radiation and surgery 02/02/2021 Last Documented On 1 9:25AM ; [facility] Maternal aunt's history of m alignant female breast neoplasm mat AUNT--- in her 60's 12/31/2016 Last Documented On 1 8:47AM ; [facility] Maternal history of malignant neoplasm o f the ovary MOM at 74 y old 12/31/2016 Last Documented On 1 8:47AM ; [facility] Paternal uncle's history of malignant neoplasm of large intestine pat UNCLE in his 50's 12/31/2016 Last Documented On 1 8:47AM ; [facility] Diabetes mellitus Paternal aunt and uncl e 12/27/2014 Last Documented On 1 8:47AM ; [facility] Family history of heart disease FATHER/B DIANE 12/27/2014 Last Documented On 1 8:47AM ; [facility] Family history of malignant neoplasm of the large intestine pat UNCLE in his 50's 12/24/2013 Last Documented On 1 8:47AM ; [facility] Family history unchanged 12/24/2013 Last Documented On 1 8:47AM ; [facility] Family history of hypertension PATIENT 0 12/20/2011 Last Documented On 1 8:47AM ; [facility] Review of Systems Includes: Review of Systems [...] No arthralgias and no localized joint swelling. Psychological: No anxiety, no depression, and no [...] Active Last Documented On 3 1:06PM ; [facility] Encounters Encounter Provider Location Date Check-In Time Check-Out Time Diagnosis WELL WOMAN - ESTABLISHED PT AMPARO MCCRACKEN MD [facility] 02/03/20 21 8:50AM 9:32AM Osteopenia,Armida ast Fibrocystic Disease,Screen ing Malig. Neoplasm Rectum,Normal Female Exam Insurance Includes: Active Insurance Policies Plan Name Member ID Group # Subscriber Relationship Effect mary alice Dates 1 - MEDICARE PART A CLAIMS/NGS [id number] DOMINIQUE Wheat 2 - [employer] MEDICARE SUPPLEMENT [id number] PLAN F DOMINIQUE HANSEN Self Clinical Notes Includes: Clinical Notes from this encounter No Clinical Notes Recorded
--- OUTSIDE RECORDS SUMMARY | 2024-10-14 00:32 | XMS_ITS | Clinical Summary ---
Author Organization [facility] Address [address] [place] [address] Care Team Providers Care Fisher Crab Name Role Phone Bear Ling MD Primary Care Provider [phone] Source Comments [facility] Affiliates and Associated Physician Practices is amultiple site organization consisting of ambulatory clinics and hospital sitesin [place] and [place]. This disclosure is being madepursuant to the Care Everywhere program and may not contain all information available regarding this patient. Last updated 18.[facility] Allergies Active Allergy Reactions Criticality Noted Date [...] 05/13/2024 6:05 AM CDT Plan of Treatment Health Maintenance Due Date Last Done Comments COLOGUARD (AGES 45-75) - COLON CA SCREENING 1949 COLON MONITORING 1949 COLONOSCOPY - COLON CA SCREENING 1949 CT COLONOGRAPHY - COLON CA SCREENING 1949 FLEX SIG - COLON CA SCREENING 1949 MEDICARE AWV 12 MONTHS 1950 HEPATITIS C SCREENING 11/21/1967 DTAP/TDAP/TD VACCINES (1 - Tdap) 1968 PNEUMOCOCCAL VACCINE 50+ (1 of 1 - PCV) 11/26/1999 ZOSTER VACCINE (1 of 2) 11/26/1999 Colorectal Cancer Screening 04/28/2024 FIT - COLON CA SCREENING 04/28/2024 04/28/2023 COVID-19 VACCINE (1 - season) 2024 INFLUENZA VACCINE (#1) 2024 0, 07/03/2019, 06/26/2018, Additional history exists DEPRESSION SCREENING 09/08/2024 Respiratory Syncytial Virus (RSV) Vaccine Pt: or over 60 yrs (1 - 1-dose 75+ series) 2024 MAMMOGRAM 11/18/2025 11/19/2023, 11/06, 10/18/2022, Additional history exists BONE DENSITY TESTING Completed 02/14/2021 HEPATITIS B VACCINE Aged Out No longe r eligible based on patient's age to complete this topic HIB VACCINE Aged Out No longer eligi ble based on patient's age to complete this topic HPV VACCINE Aged Out No longer eligi ble based on patient's age to complete this topic MENINGOCOCCAL (Group B) VACCINE Aged Out No longer eligible based on patient's age to complete this topic MENINGOCOCCAL VACCINE Aged Out No dana randal eligible based on patient's age to complete this topic Medical Devices Implanted Type Area Garden Labourer Device Identifier Shelf Expiration Date Model / Serial / Lot Dev Clsr 27mm Watchman Flx Pro Lt Atr - [id number] Implanted:Qty: 1 on 05/13/2024 by Stef Berry MD at [facility] [employer] [facility] [id number] 03/04/2027 [id number] / [id number] / [id number] Advance Directives * Full Code (Latest Code Status on File) Date Activated Date Inactivated Comments 05/13/2024 9:29 AM 05/13/2024 2:24 PM Care Teams Fisher Crab Relationship Specialty Start Date End Date Bear Ling MD [address] [place] [address] PCP - General 12/13/20
--- OUTSIDE RECORDS SUMMARY | 2024-10-14 00:32 | XMS_ITS | Clinical Summary ---
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 No concerns today Problems Includes: Problems addressed during this encounter and other active Problems Current Visit Onset Date Resolved Date Provider Conditio n Status Breast Fibrocystic Disease 12/24/2013 AMPARO MCCRACKEN MD Active Last Documented On 12/24/2013 9:59AM ; [facility] Note: Unchanged Past Visits Onset Date Resolved Date Provider Condition Status History of Cervical Dysplasia 12/31/2016 AMPARO MCCRACKEN MD Active Last Documented On 12/31/2016 9:11AM ; [facility] Note: Unchanged Plan of Treatment - Follow-up visit 2 years or as needed - Last Documented On 04/28/2023 1:39PM ; [facility] She will let us know if she has other problems in the meantime. - Last Documented On 04/28/2023 1:39PM ; [facility] Instructions to patient Instructions for patient : B reast Self Exam discussed Last Documented On 3 1:19PM ; [facility] Education and Decision Aids were provided during visit for: STD screening offered and de clined Last Documented On 3 1:19PM ; [facility] Bone Mineral Density Screeni ng guidelines reviewed : will wait and do in 2 years in 2024 (4 years apart) Last Documented On 3 1:28PM ; [facility] Patient Education: Daily surinder cium and vitamin D Last Documented On 3 1:19PM ; [facility] Patient Education: weight be aring exercise Last Documented On 3 1:19PM ; [facility] Colonoscopy screening guidel wally discussed Last Documented On 3 1:19PM ; [facility] Assessments Includes: Assessments from this encounter Findings - Fibrocystic disease of breast - Last Documented On 04/28/2023 1:39PM ; [facility] - NORMAL FEMALE EXAM - Last Documented On 04/28/2023 1:39PM ; [facility] - Osteopenia - Last Documented On 04/28/2023 1:39PM ; [facility] - Screening Malig. Neoplasm Rectum - Last Documented On 04/28/2023 1:39PM ; [facility] Instructions Includes: Instructions from this encounter Instructions to patient Instructions for patient : B reast Self Exam discussed Last Documented On 3 1:19PM ; [facility] Education and Decision Aids were provided during visit for: STD screening offered and de clined Last Documented On 3 1:19PM ; [facility] Bone Mineral Density Screeni ng guidelines reviewed : will wait and do in 2 years in 2024 (4 years apart) Last Documented On 3 1:28PM ; [facility] Patient Education: Daily surinder cium and vitamin D Last Documented On 3 1:19PM ; [facility] Patient Education: weight be aring exercise Last Documented On 3 1:19PM ; [facility] Colonoscopy screening guidel wally discussed Last Documented On 3 1:19PM ; [facility] Medical Equipment - Implanted Devices Includes: Current Devices No Medical Equipment Recorded Medications Includes: Medications discussed during this encounter and other current Medications Current Medications (continue as prescribed) [facility] Vitamin D3 25 MCG (1000 UT) Oral Tablet Chewable 0 04/28/2023 Provider: Diagnosis: Last Documented On 04/28/2023 1:06PM By James VELASQUEZ ; [facility] Calcium 600 MG Oral Tablet 04/28/2023 Provider: Diagnosis: Last Documented On 04/28/2023 1:06PM By James VELASQUEZ ; [facility] Lisinopril-hydroCHLOROthiazide 20-25MG Oral Tablet Provider: Diagnosis: one tablet Last Documented On 9 11:17AM By CAROLINA VELASQUEZ ; [facility] Pravastatin Sodium 20MG Oral Tablet 01/22/2019 Provi cesario: Diagnosis: once day Last Documented On 9 11:17AM By CAROLINA VELASQUEZ ; [facility] PriLOSEC 40 MG OR CPDR 12/24/2013 Provider: Diagnosis: Last Documented On 4 9:43AM By LUCIE OCHOA LPN ; [facility] QC Womens Daily Multivitamin OR TABS 12/24/2013 Prov ider: Diagnosis: Last Documented On 4 9:43AM By LUCIE OCHOA LPN ; [facility] Medications Administered Includes: Administered Medications from this encounter No Administered Medications Recorded Vital Signs Includes: Vital Signs from this encounter Vital Name 04/28/2023 01:08P Blood Pressure Sitting R 126/59 BP Cuff Size Regular Temp-Temporal 97.3 Height (in) 69.75 Weight (lb) 196.8 Body Mass Index 28.4 Body Surface Area 2.1 Last Documented: On 04/28/2023 1:09PM ; [facility] Results Includes: Results discussed during this encounter No Results Recorded For Specified Dates History of Present Illness Includes: History of Present Illness from this encounter PRABHU HANSEN is a 72 year old female. - Allergy list reviewed - Medication list reviewed Social History Description Last Updated Exercising regularly 02/02/2021 Last Documented On 3 12:59PM ; [facility] Not using alcohol 01/22/2019 Last Documented On 3 12:59PM ; [facility] Not using drugs 01/22/2019 Last Documented On 3 12:59PM ; [facility] Sexually active with 1 partners in the l ast year 12/31/2016 Last Documented On 3 12:59PM ; [facility] Smoking status : Former smoker quit at a ge 25 after smoking 10 years 12/31/2016 Last Documented On 3 12:59PM ; [facility] Social history unchanged 12/24/2013 Last Documented On 3 12:59PM ; [facility] 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 Last Documented On 3 12:59PM ; [facility] Marital history 12/20/2011 Last Documented On 3 12:59PM ; [facility] Procedures and Surgical History Includes: Procedures from this encounter Procedures Code Diagnosis Performing Provider Service L ocation Service Date use of tobacco assessment performed 1000F Last Documented On 3 1:01PM ; [facility] Clinical summary provided to patient Last Documented On 3 1:19PM ; [facility] a mammogram was performed 10/18/22 [facility] Last Documented On 3 1:01PM ; [facility] vaginal Pap smear : done due to pt's VIRGIL 1 in 2009 for hyst (no residual in specimen) [id number] Last Documented On 3 1:37PM ; [facility] history of vaginal Pap smear 02/02/2021 [id number] Last Documented On 3 1:01PM ; [facility] a colonoscopy was performed 01/24/21 Last Documented On 3 1:01PM ; [facility] patient recently had a dexa scan 02/14/21 Last Documented On 3 1:01PM ; [facility] FIT Test-Fecal Occult negative [id number] Last Documented On 3 1:19PM ; [facility] Surgical History Last Updated Surgical / procedural histor y oct or november 2020 skin cancer removed right upper leg and right shoulder 02/02/2021 Last Documented On 3 12:59PM ; [facility] History of Loop electrode excision of ce rvix (LEEP) 201102/02/2021 Last Documented On 3 12:59PM ; [facility] Previous colposcopy 01/22/2019 Last Documented On 3 12:59PM ; [facility] History of hysterectomy 12/31/2016 Last Documented On 3 12:59PM ; [facility] Surgical history unchanged 12/24/2013 Last Documented On 3 12:59PM ; [facility] History of total abdominal h ysterectomy RUBI/BSO at [facility] on 04/16/2012 for VIRGIL I in LEEP cone x 2 with cx stenosis with no residual dysplasia in the hyst 12/22/2012 Last Documented On 3 12:59PM ; [facility] Bilateral salpingo-oophorectomy TCK APR 2010 12/20/2011 Last Documented On 3 12:59PM ; [facility] Medical History Includes: Medical History addressed during this encounter Description Last Updated Last mammogram date: 10/18/2022 3 Last Documented On 3 1:39PM ; [facility] Last pap smear date 02/02/2021 04/28/2023 Last Documented On 3 1:39PM ; [facility] History of colonoscopy fiberoptic was pe rformed 01/24/2021 04/28/2023 Last Documented On 3 1:39PM ; [facility] History of screening mammogram was perfo rmed 10/18/2022 04/28/2023 Last Documented On 3 1:39PM ; [facility] A colonoscopy was performed 01/24/21; Dr Crook per pt 02/02/2021 Last Documented On 3 12:59PM ; [facility] Patient recently had a dexa scan 01/06/2015 at [facility] with T-scores of 3.9 in the spine, -1.2 in the hip neck, and 0.7 in the total hip 01/22/2019 Last Documented On 3 12:59PM ; [facility] Status post tubal ligation 12/31/2016 Last Documented On 3 12:59PM ; [facility] Sexually active 12/27/2014 Last Documented On 3 12:59PM ; [facility] History of a DEXA of the lateral lumbar spine was performed 02/14/2012 12/27/2014 Last Documented On 3 12:59PM ; [facility] Recent change in medical his tory PT. HAD SKIN CA REMOVED X2--- in the ~R/L THUMB SURGERY----2008 ~11/2013 Dr Scales dxed pt by EGD with hiatal hernia and stomach ulcers 12/24/2013 Last Documented On 3 12:59PM ; [facility] History of benign essential hypertension 12/22/2012 Last Documented On 3 12:59PM ; [facility] History of menopause 12/22/2012 Last Documented On 3 12:59PM ; [facility] LMP: 2000 12/22/2012 Last Documented On 3 12:59PM ; [facility] Result: normal 12/22/2012 Last Documented On 3 12:59PM ; [facility] Result: normal 12/22/2012 Last Documented On 3 12:59PM ; [facility] PRIMARY CARE PROVIDER : is Dr Ling Last Documented On 3 12:59PM ; [facility] Vaginal delivery 4 12/20/2011 Last Documented On 3 12:59PM ; [facility] Aborta 1 12/20/2011 Last Documented On 3 12:59PM ; [facility] 5 12/20/2011 Last Documented On 3 12:59PM ; [facility] Para 4 12/20/2011 Last Documented On 3 12:59PM ; [facility] Family History Includes: Family History addressed during this encounter Description Last Updated Daughter's history of breast cancer Diagnosed in 2020 and had treatments done and had a lumpectomy done 04/28/2023 Last Documented On 3 1:39PM ; [facility] Family history of malignant female breast neoplasm mat AUNT--- in her 60's ~Daughter- breast cancer 2020- september- chemo- last radiation will be 02/06/21- then radiation and surgery 02/02/2021 Last Documented On 3 12:59PM ; [facility] Maternal aunt's history of m alignant female breast neoplasm mat AUNT--- in her 60's 12/31/2016 Last Documented On 3 12:59PM ; [facility] Maternal history of malignant neoplasm o f the ovary MOM at 74 y old 12/31/2016 Last Documented On 3 12:59PM ; [facility] Paternal uncle's history of malignant neoplasm of large intestine pat UNCLE in his 50's 12/31/2016 Last Documented On 3 12:59PM ; [facility] Diabetes mellitus Paternal aunt and uncl e 12/27/2014 Last Documented On 3 12:59PM ; [facility] Family history of heart disease FATHER/B ROTHERS 12/27/2014 Last Documented On 3 12:59PM ; [facility] Family history unchanged 12/24/2013 Last Documented On 3 12:59PM ; [facility] Family history of hypertension PATIENT 0 12/20/2011 Last Documented On 3 12:59PM ; [facility] Review of Systems Includes: Review of [...] Active Last Documented On 3 1:06PM ; [facility] Encounters Encounter Provider Location Date Check-In Time Check-Out Time Diagnosis [facility]LISHED PT AMPARO MCCRACKEN MD [facility] 04/28/20 23 1:00PM 1:46PM Osteopenia,Armida ast Fibrocystic Disease,Screen ing Malig. Neoplasm Rectum,Normal Female Exam Insurance Includes: Active Insurance Policies Plan Name Member ID Group # Subscriber Relationship Effect mary alice Dates 1 - MEDICARE PART A CLAIMS/NGS [id number] DOMINIQUE HANSEN Self 2 - [place] MEDICARE SUPPLEMENT [id number] PLAN F DOMINIQUE HANSEN Self Clinical Notes Includes: Clinical Notes from this encounter * Progress note Date Encounter Last Documented by 04/28/2023 [facility] - ESTABLISHED PT Last documented on 04/28/2023; 1:39 PM, AMPARO MCCRACKEN MD; [facility] Active Problems & Conditions - Breast Fibrocystic Disease - Family History of Breast Neoplasm Malignant Female - mat AUNT--- in her 60's - History of Cervical Dysplasia Chief Complaint The Chief Complaint is: WWE. No concerns today. History of Present Illness DOMINIQUE HANSEN is a 72 year old female. - Allergy list reviewed - Medication list reviewed Current Medication - Calcium 600 MG Oral Tablet 0 days, 0 refills - [facility] Vitamin D3 25 MCG (1000 UT) Oral Tablet Chewable 0 days, 0 refills - Lisinopril-hydroCHLOROthiazide 20-25MG Oral Tablet 20-25 MG one tablet, 0 days, 0 refills - Pravastatin Sodium 20MG Oral Tablet 20 MG once day, 0 days, 0 refills - PriLOSEC 40 MG Capsule Delayed Release 0 days, 0 refills - [facility] Womens Daily Multivitamin Tablet 0 days, 0 refills Past Medical/Surgical History Other: Primary Care Provider: is Dr Ling Reported: Recent change in medical history PT. HAD SKIN CA REMOVED X2--- in the R/L THUMB SURGERY----11/2013 Dr Scales dxed pt by EGD with hiatal hernia and stomach ulcers. LMP: 1999, Last pap smear date 02/02/2021 result: normal, Last mammogram date: 10/18/2022 result: normal, and status post tubal ligation. Surgical / Procedural: Surgical / procedural history oct or november 2020 skin cancer removed right upper leg and right shoulder. Previous colposcopy, Bilateral salpingo-oophorectomy TCK APR 2010, and surgical history unchanged. Tests: A colonoscopy was performed 01/24/21; 07/31/15 Dr Crook per pt and patient recently had a dexa scan 01/06/2015 at [facility] with T-scores of 3.9 in the spine, -1.2 in the hip neck, and 0.7 in the total hip. : 5, para 4, aborta 1, and history of the : vaginal delivery 4. Sexual: Sexually active. Other: Colonoscopy fiberoptic was performed 01/24/2021. Screening mammogram was performed 10/18/2022. A DXA of the lateral lumbar spine was performed 02/14/2012 Diagnoses: Benign essential hypertension. Menopause Surgical: - Hysterectomy - Total abdominal hysterectomy RUBI/BSO at [facility] on 04/16/2012 for VIRGIL I in LEEP cone x 2 with cx stenosis with no residual dysplasia in the hyst - Loop electrode excision of cervix (LEEP) 2011 Social History Social history unchanged. Tobacco use: Smoking status: Former smoker quit at age 25 after smoking 10 years. Alcohol: Not using alcohol. Drug Use: Not using drugs. Habits: Exercising regularly. Marital: Marital history . Sexual: Sexually active with 1 partners in the last year. RETIRED [employer]. Allergies - Codeine Reaction: , Diarrhea / Diarrheal disorder Family History Heart disease FATHER/BROTHERS Family history unchanged Diabetes mellitus Paternal aunt and uncle Systemic hypertension PATIENT Malignant female breast neoplasm mat AUNT--- in her 60's Daughter- breast cancer 2020- september- chemo- last radiation will be 02/06/21- then radiation and surgery Maternal: Malignant neoplasm of ovary MOM at 74 y old Daughter's: Breast cancer Diagnosed in 2020 and had treatments done and had a lumpectomy done Paternal uncle's: Malignant neoplasm of large intestine pat UNCLE in his 50's Maternal aunt's: Malignant female breast neoplasm mat AUNT--- in her 60's Review Of Systems Gastrointestinal: No nausea, no vomiting, and no [...] anxiety, no depression, and no sleep disturbances. Physical Findings - Vitals taken 04/28/2023 01:08 pm BP-Sitting R 126/59 mmHg BP Cuff Size Regular Temp-Temporal 97.3 F Height 69.75 in Weight 196 lbs 12.8 oz Body Mass Index 28.4 kg/m2 Body Surface Area 2.1 m2 Standard Measurements: - Patient was not observed to be obese. General Appearance: - Well developed. - Well nourished. - In no acute distress. Neck: Thyroid: - Showed no abnormalities. Lymph Nodes: - Supraclavicular lymph nodes were not enlarged. - Axillary lymph nodes were not enlarged. Breasts: General/bilateral: - Diffuse fibrous tissue in the breast(s). - Diffuse fibrous tissue was found in both breasts. Right Breast: - Nipple was normal. - No abnormal secretion. - No mass was found. - No tenderness. Left Breast: - Nipple was normal. - No abnormal secretion. - No mass was found. - No tenderness. Lungs: - Clear to auscultation. Cardiovascular: Heart Rate And Rhythm: - Normal. Murmurs: - No murmurs were heard. Edema: - Not present. Veins: - No spider veins. - No varicose veins seen. Back: - No right costovertebral angle tenderness. - No left costovertebral angle tenderness. Abdomen: Palpation: - Abdominal non-tender. - No mass was palpated in the abdomen. Liver: - Not enlarged. Spleen: - Not enlarged. Hernia: - No hernia was discovered. Urinary System: Bladder: - Normal. - Not distended. - Not tender. - Did not have a mass. - Incontinence was not demonstrated with heavy cough. Urethra: - Normal: no lesions. Genitalia: External: - Genitalia showed no abnormalities. - Genitalia exhibited no lesion. Pelvic: - No ovarian mass. Vagina: - Normal: no lesions. - No vaginal discharge was observed. - No cystocele was observed. - No rectocele was observed. Cervix: - Absent. Uterine Adnexae: - Uterine adnexa was not tender. Rectovaginal: - Tissue was normal. Rectal: - Exam: normal. Rectum: - Normal. - Had no mass. Tests Laboratory-based Chemistry: Fecal Analysis: FIT Test-Fecal Occult negative. Pathology: Cytology: Vaginal Pap smear: done due to pt's VIRGIL 1 in 2009 for hyst (no residual in specimen). Assessment - Fibrocystic disease of breast - NORMAL FEMALE EXAM - Osteopenia - Screening Malig. Neoplasm Rectum Previous Tests Past Medical: Tests: A mammogram was performed 10/18/22 [facility], a colonoscopy was performed 01/24/21, and patient recently had a dexa scan 02/14/21. Pathology: Cytology: Vaginal Pap smear 02/02/2021. Therapy - Clinical summary provided to patient. Counseling/Education - Instructions for patient: Breast Self Exam discussed - Patient Education: Daily calcium and vitamin D - Patient Education: weight bearing exercise - Colonoscopy screening guidelines discussed - STD screening offered and declined - Bone Mineral Density Screening guidelines reviewed: will wait and do in 2 years in 2024 (4 years apart) Plan StartCited - Other Follow-up return in 2 years for WWE (30 min) EndCited - Follow-up visit 2 years or as needed She will let us know if she has other problems in the meantime. Practice Management Use of tobacco assessment performed.
--- OUTSIDE RECORDS SUMMARY | 2024-10-14 00:32 | XMS_ITS | Clinical Summary ---
Author Organization [facility] Address [address] [place] [address] Phone Care Team Providers Care Display Card Writer Name Role Phone KAYKAY ANN, AMPARO Mendoza Unavailable [phone] MILAN ANN, JANET Ashby Primary Care Provider [phone] Reason for Visit and Chief Complaint The Chief Complaint is: pt to clinic for cough and congestion x 2 days Problems Includes: Problems addressed during this encounter and other active Problems All Visits Onset Date Resolved Date Provider Condition S tatus History of Cervical Dysplasia 12/31/2016 AMPARO MCCRACKEN MD Active Last Documented On 12/31/2016 9:11AM ; [facility] Note: Unchanged Breast Fibrocystic Disease 12/24/2013 AMPARO MCCRACKEN MD Active Last Documented On 12/24/2013 9:59AM ; [facility] Note: Unchanged Plan of Treatment - Return to the clinic if condition worsens or new symptoms arise - Last Documented On 08/18/2020 4:04PM ; [facility] - Patient will call for appointment as needed - Last Documented On 08/18/2020 4:04PM ; [facility] Instructions to patient Instructions for patient Last Documented On 0 3:06PM ; [facility] Assessments Includes: Assessments from this encounter Findings - COVID-19 infection - Last Documented On 08/18/2020 4:04PM ; [facility] Instructions Includes: Instructions from this encounter Instructions to patient Instructions for patient Last Documented On 0 3:06PM ; [facility] Medical Equipment - Implanted Devices Includes: Current Devices No Medical Equipment Recorded Medications Includes: Medications discussed during this encounter and other current Medications Current Medications (continue as prescribed) [facility] Vitamin D3 25 MCG (1000 UT) Oral Tablet Chewable 0 04/28/2023 Provider: Diagnosis: Last Documented On 04/28/2023 1:06PM By James VELASQUEZ ; [facility] Calcium 600 MG Oral Tablet 04/28/2023 Provider: Diagnosis: Last Documented On 04/28/2023 1:06PM By James VELASQUEZ ; [facility] Lisinopril-hydroCHLOROthiazide 20-25MG Oral Tablet Provider: Diagnosis: one tablet Last Documented On 9 11:17AM By CAROLINA VELASQUEZ ; [facility] Pravastatin Sodium 20MG Oral Tablet 01/22/2019 Provi cesario: Diagnosis: once day Last Documented On 9 11:17AM By CAROLINA VELASQUEZ ; [facility] PriLOSEC 40 MG OR CPDR 12/24/2013 Provider: Diagnosis: Last Documented On 4 9:43AM By LUCIE OCHOA LPN ; [facility] QC Womens Daily Multivitamin OR TABS 12/24/2013 Prov ider: Diagnosis: Last Documented On 4 9:43AM By LUCIE OCHOA LPN ; [facility] Medications Administered Includes: Administered Medications from this encounter No Administered Medications Recorded Vital Signs Includes: Vital Signs from this encounter Vital Name 08/18/2020 03:59P Pulse Rate-Sitting (bpm) 70 Temp-Oral (F) 98.4 Oxygen Saturation (%) 96 Last Documented: On 08/18/2020 3:59PM ; [facility] Results Includes: Results discussed during this encounter Rapid COVID Test [facility] Ordered by MERY SEVERINO [facility] on Collected: Reported: 08/18/2020 12:07 Last Documented On 0 12:08PM ; [facility] Reviewed on 08/18/2020; All test results are final unless otherwise noted. Rapid COVId POS A (Abnormal) Last Documented On 0 12:07PM ; [facility] Int. QC Acceptable N (Normal) Last Documented On 0 12:07PM ; [facility] Lot # and Exp. Date [id number] 11/28/2020 N (Normal) Last Documented On 0 12:07PM ; [facility] History of Present Illness Includes: History of Present Illness from this encounter HPI DOMINIQUE HANSEN is a 69 year old female. - Allergy list reviewed - Medication reconciliation performed - Fever - Chills - Duration of symptoms - Previously well - Headache associated with head congestion - No sinus pain - No sinus pressure - No swollen glands in the neck - No itching of the eyes - No discharge from the eyes - Nasal discharge - Postnasal drip - Nasal passage blockage (stuffiness) - No earache - The ears do not feel pressured - The ears do not feel full - No discharge from the ears - No sneezing - No sore throat - No itchy throat - No chest pain or discomfort - No palpitations - Cough - Not feeling congested in the chest - No dyspnea - No wheezing - No rash Pt to clinic for above symptoms x 2 days Social History Description Last Updated Sexually active with 1 partners in the l ast year 12/31/2016 Last Documented On 0 12:07PM ; [facility] Social history unchanged 12/24/2013 Last Documented On 0 12:07PM ; [facility] 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 Last Documented On 0 12:07PM ; [facility] Marital history 12/20/2011 Last Documented On 0 12:07PM ; [facility] Non-smoker 12/20/2011 Last Documented On 0 12:07PM ; [facility] Smoking Status Unknown Procedures and Surgical History Includes: Procedures from this encounter Procedures Code Diagnosis Performing Provider Service L ocation Service Date plan of care reviewed and agreed to by the patient Last Documented On 0 3:06PM ; [facility] review of medications documented 1160F Last Documented On 0 3:06PM ; [facility] Patient verbalizes understanding Last Documented On 0 3:06PM ; [facility] Increase fluids Last Documented On 0 3:06PM ; [facility] Clinical summary provided to patient Last Documented On 0 3:06PM ; [facility] Surgical History Last Updated Previous colposcopy 01/22/2019 Last Documented On 0 12:07PM ; [facility] History of hysterectomy 12/31/2016 Last Documented On 0 12:07PM ; [facility] Surgical history unchanged 12/24/2013 Last Documented On 0 12:07PM ; [facility] History of total abdominal h ysterectomy RUBI/BSO at [facility] on 04/16/2012 for VIRGIL I in LEEP cone x 2 with cx stenosis with no residual dysplasia in the hyst 12/22/2012 Last Documented On 0 12:07PM ; [facility] Bilateral salpingo-oophorectomy TCK APR 2010 12/20/2011 Last Documented On 0 12:07PM ; [facility] Medical History Includes: Medical History addressed during this encounter Description Last Updated Last mammogram date: 03/13/2017 [facility] Dr Darinel londono 04/28/2023 Last Documented On 0 12:07PM ; [facility] Last pap smear date 12/31/2016 04/28/2023 Last Documented On 0 12:07PM ; [facility] History of screening mammogram was perfo rmed 01/22/2014 04/28/2023 Last Documented On 0 12:07PM ; [facility] A colonoscopy was performed 07/31/15 Dr Crook per pt 02/02/2021 Last Documented On 0 12:07PM ; [facility] Patient recently had a dexa scan 01/06/2015 at [facility] with T-scores of 3.9 in the spine, -1.2 in the hip neck, and 0.7 in the total hip 01/22/2019 Last Documented On 0 12:07PM ; [facility] Status post tubal ligation 12/31/2016 Last Documented On 0 12:07PM ; [facility] Sexually active 12/27/2014 Last Documented On 0 12:07PM ; [facility] History of a DEXA of the lateral lumbar spine was performed 02/14/2012 12/27/2014 Last Documented On 0 12:07PM ; [facility] History of Pap smear done 12/24/201312/08 Last Documented On 0 12:07PM ; [facility] History of benign essential hypertension 12/22/2012 Last Documented On 0 12:07PM ; [facility] History of menopause 12/22/2012 Last Documented On 0 12:07PM ; [facility] LMP: 2000 12/22/2012 Last Documented On 0 12:07PM ; [facility] Primary Care Provider: Dr Ling 013 Last Documented On 0 12:07PM ; [facility] Result: normal 12/22/2012 Last Documented On 0 12:07PM ; [facility] Result: normal 12/22/2012 Last Documented On 0 12:07PM ; [facility] Vaginal delivery 4 12/20/2011 Last Documented On 0 12:07PM ; [facility] Aborta 1 12/20/2011 Last Documented On 0 12:07PM ; [facility] 5 12/20/2011 Last Documented On 0 12:07PM ; [facility] Para 4 12/20/2011 Last Documented On 0 12:07PM ; [facility] Family History Includes: Family History addressed during this encounter Description Last Updated Family history of malignant female breast neoplasm mat AUNT--- in her 60's 02/02/2021 Last Documented On 0 12:07PM ; [facility] Maternal aunt's history of m alignant female breast neoplasm mat AUNT--- in her 60's 12/31/2016 Last Documented On 0 12:07PM ; [facility] Maternal history of malignant neoplasm o f the ovary MOM at 74 y old 12/31/2016 Last Documented On 0 12:07PM ; [facility] Paternal uncle's history of malignant neoplasm of large intestine pat UNCLE in his 50's 12/31/2016 Last Documented On 0 12:07PM ; [facility] Diabetes mellitus Paternal aunt and uncl e 12/27/2014 Last Documented On 0 12:07PM ; [facility] Family history of heart disease FATHER/B DIANE 12/27/2014 Last Documented On 0 12:07PM ; [facility] Family history of malignant neoplasm of the large intestine pat UNCLE in his 50's 12/24/2013 Last Documented On 0 12:07PM ; [facility] Family history of malignant neoplasm of the ovary MOM at 74 y old 12/24/2013 Last Documented On 0 12:07PM ; [facility] Family history unchanged 12/24/2013 Last Documented On 0 12:07PM ; [facility] Family history of hypertension PATIENT 0 12/20/2011 Last Documented On 0 12:07PM ; [facility] Review of Systems Includes: Review of Systems from this encounter Systemic: No fever. Chills. Otolaryngeal: Nasal discharge and sore throat. Pulmonary: No dyspnea. Cough. Mental Status Includes: Mental Status from this encounter Description Oriented to time, place, and person Functional Status Includes: Functional Status from this [...] Location Date Check-In Time Check-Out Time Diagnosis SICK VISIT MERY SEVERINO [facility] [place] 08/18/20 20 11:30AM 12:01PM Coronavirus Covid-19 Infection Insurance Includes: Active Insurance Policies Plan Name Member ID Group # Subscriber Relationship Effect mary alice Dates 1 - MEDICARE PART A CLAIMS/NGS [id number] DOMINIQUE Wheat 2 - [place] MEDICARE SUPPLEMENT [id number] PLAN F DOMINIQUE HANSEN Self Clinical Notes Includes: Clinical Notes from this encounter No Clinical Notes Recorded
--- OUTSIDE RECORDS SUMMARY | 2024-10-14 00:33 | XMS_ITS | Encounter Summary ---
Author Organization [facility] Address [address] [place] [address] Phone Care Team Providers Care It Security Project Manager Name Role Phone Bear Ling MD Primary Care Provider [phone] Domingo Wolf MD Unavailable [phone] Katy Norton MD, Dereck Lerma Unavailable [phone] Emmanuel Scales DO Unavailable [phone] Eron Min MD Unavailable Encounter Details Date Type Department Care Team (Late st Contact Info) Description 07/24/2017 Orders Only [facility] [address] [place] [address] Bear Ling MD [address] [id number] Social History Tobacco Use Types Packs/Day Years Used Date Smoking Tobacco: Former Smokeless Tobacco: Never Comments Unknown Sex and Gender Information Value Date Recorded Sex Assigned at Not on file Legal Sex Female 8:51 AM PRODUCTION COST ESTIMATOR Gender Identity Not on file Sexual Orientation Not on file documented as of this encounter Plan of Treatment Not on file documented as of this encounter Procedures Procedure Name Priority Date/Time Associated Diagnosis Comments CARDIOLOGY DOCUMENT SCAN 07/24/2017 2:54 PM PRODUCTION COST ESTIMATOR documented in this encounter Results * SCAN - CARDIOLOGY (07/24/2017 2:54 PM PRODUCTION COST ESTIMATOR) Anatomical Region Laterality Modality Other Bear Ling MD CV CARDIAC SERVICES PROCED URES Final Result documented in this encounter Visit Diagnoses Not on filedocumented in this encounter Care Teams It Security Project Manager Relationship Specialty Start Date End Date Bear Ling MD [address] [place] [address] PCP - General 11/01/10 Domingo Wolf MD [address] [place] [address] Product Safety And Standards Engineer Obstetrics and Gynecology 08/12/18 Dereck Burns Jr., MD [address] [place] [address] Surgeon Orthopedic Surgery 08/12/18 Emmanuel Scales DO [address] [place] [address] Referring Physician Gastroenterology 10/18/19 03/21/21 Eron Min MD [address] [place] [address] Consulting Physician Neurology 03/22/21 documented as of this encounter
--- OUTSIDE RECORDS SUMMARY | 2024-10-14 00:33 | XMS_ITS | Encounter Summary ---
Author Organization [facility] Address [address] [place] [address] Care Team Providers Care Weed Controller Name Role Phone Anuradha Bear Lu MD Primary Care Provider [phone] Domingo Wolf MD Unavailable [phone] Katy Norton MD, Dereck Lerma Unavailable [phone] Eron Min MD Unavailable Encounter Details Date Type Department Care Team (Late st Contact Info) Description 02/25/2024 Orders Only [facility] [address] [place] [id number] Scanning, Provider Social History Tobacco Use Types Packs/Day Years Used Date Smoking Tobacco: Former Smokeless Tobacco: Never Alcohol Use Standard Drinks/Week Comments Not Currently 0 (1 standard drink = 0.6 oz pur e alcohol) AUDIT-C Answer Date Recorded Frequency of Alcohol Consumption Never 10/29/2019 Average Number of Drinks Not on file 020 Frequency of Binge Drinking Not on file 10/10 PHQ-2 Answer Date Recorded PHQ-2 Total Score (If total score is 3 or more points, staff should administer the PHQ-9) 0 03/26/2022 Comments No Sex and Gender Information Value Date Recorded Sex Assigned at Not on file Legal Sex Female 8:51 AM CYBER INTELLIGENCE ANALYST Gender Identity Not on file Sexual Orientation Not on file documented as of this encounter Plan of Treatment Not on file documented as of this encounter Procedures Procedure Name Priority Date/Time Associated Diagnosis Comments SCAN - LABS 02/25/2024 documented in this encounter Results * SCAN - LABS (02/25/2024) Provider Scanning Final Result documented in this encounter Visit Diagnoses Not on filedocumented in this encounter Care Teams Weed Controller Relationship Specialty Start Date End Date Bear Ling MD [address] [place] [address] PCP - General 11/01/10 Domingo Wolf MD [address] [place] [address] Police Superintendent Obstetrics and Gynecology 08/12/18 Dereck Burns Jr., MD [address] [place] [address] Surgeon Orthopedic Surgery 08/12/18 Eron Min MD [address] [place] [address] Consulting Physician Neurology 03/22/21 documented as of this encounter
--- OUTSIDE RECORDS SUMMARY | 2024-10-14 00:33 | XMS_ITS | Clinical Summary ---
Author Organization [facility] Address [address] [place] [address] Phone Care Team Providers Care Civil Celebrant Name Role Phone Bear Ling MD Primary Care Provider [phone] Stef Berry MD Unavailable [phone] Allergies Active Allergy Reactions Criticality Noted Date Comments Codeine Nausea 01/01/2016 Medications MULTIPLE VITAMINS PO Take 1 Tab by mouth daily. women over 50 015 Active pravastatin (PRAVACHOL) 20 MG Tablet Take 20 mg by mouth daily. Active lisinopril-hydroCHL OROthiazide (PRINZIDE, ZESTORETIC) 20-25 MG Tablet Take 1 Tablet by mouth daily. Active Calcium Carb-Cholecalcifero l (CALCIUM 600 + D PO) Take 600 mg by mouth daily. Active HYDROcodone-acetami nophen (NORCO) 5-325 MG TabletIndications:C olitis,Atrial fibrillation, unspecified type (HCC) Take 1 Tablet by mouth every 8 hours as needed for Moderate or more severe pain. 15 Tablet 024 Active clopidogrel (PLAVIX) 75 MG Tablet Take 75 mg by mouth daily. Active metoprolol tartrate (LOPRESSOR) 25 MG Tablet Take 12.5 mg by mouth 2 times daily. Active sucralfate (CARAFATE) 1 GM Tablet Take 1 Tablet by mouth every 6 hours. 120 Tablet Active famotidine (PEPCID) 20 MG TabletIndications:P eptic Ulcer,Symptomatic Gastroesophageal Reflux Disease (Inactive) Take 1 Tablet by mouth every evening. Indications: Gastroesophageal Reflux Disease with Current Symptoms, Peptic Ulcer 30 Tablet Active Active Problems Problem Noted Date Diagnosed Date Presence of Watchman left atrial appendage closu re device 07/06/2024 PAF (paroxysmal atrial fibrillation) 03/26/2024 Colitis 02/20/2024 Closed fracture of right patella 12/29/2015 Seasonal allergies WENDY (obstructive sleep apnea) HTN (hypertension) HLD (hyperlipidemia) (gastric peptic ulcer) GERD (gastroesophageal reflux disease) Erosive esophagitis Diverticula, colon Arthritis Encounters Date Type Department Care Team Description 08/04/2024 11:17 AM SENIOR [facility]NAGER [facility] - 08/04/2024 3:10 PM SENIOR MANAGER [employer] Emergency [facility] Emergency [address] [place] [address] Markos Winston, PAC Gastritis Discharge Disposition: Discharged to home or Selfcare 08/04/2024 Travel from Last 3 Months Immunizations Immunization Administration Dates Next Due Influenza, High-dose, Quadrivalent 06/20/2023,,06/22/2021 Influenza, Seasonal, Injecta ble, Undefined 06/10/2014,05/06/2013 Influenza, Trivalent, Adjuvanted, PF 06/25/2018 Influenza, high-dose, trivalent, PF 06/09,07/03/2019,06/14/2017,2015,06/09/2015 Pneumococcal Vaccine - 13 Valent 02/08/2016 Pneumococcal Vaccine Adult - 23 Valent 09/12/2020 RSV, Recombinant, Protein Reza bunit Rsvpref, Adjuvant Recon (Arexvy) 10/07/2023 TDAP Vaccine 06/28/2011 Td Vaccine (preservative free) 12/28/2015 Zoster Vaccine Recombinant 09/16/2023,04/29/2023 Zoster Vaccine, live 02/08/2016 Family History Medical History Relation Name Comments Diabetes Brother Heart Attack Brother Congestive Heart Failure Father Heart Attack Father Hypertension Father Breast Cancer Maternal Aunt Cancer Maternal Aunt breast Cancer Mother ovarian Ovarian Cancer Mother Diabetes Paternal Aunt Cancer Paternal Uncle colon Heart Attack Paternal Uncle Relation Name Status Comments Brother Father Maternal Aunt Mother Paternal Aunt Paternal Uncle Social History Tobacco Use Types Packs/Day Years Used Date Smoking Tobacco: Former Cigarettes 0.5 10 1 1976 Smokeless Tobacco: Never Alcohol Use Standard Drinks/Week Comments Not Currently 0 (1 standard drink = 0.6 oz pur e alcohol) [facility] Utilities Answer Date Recorded In the past 12 months has e [employer], gas, oil, or water [employer] threatened to shut off services in your home? Patient declined 02/20/2024 Social Connection and Isolation Panel [NHANES] A nswer Date Recorded In a typical week, how many times do you talk on the phone with family, friends, or neighbors? Patient declined 02/20/2024 How often do you get togethe r with friends or relatives? Patient declined 02/20/2024 How often do you attend protestant or christian serv ices? Patient declined 02/20/2024 Do you belong to any clubs o r organizations such as protestant groups, unions, fraternal or athletic groups, or school groups? Patient declined 02/20/2024 How often do you attend meet ings of the clubs or organizations you belong to? Patient declined 02/20/2024 Are you , , di vorced, , never , or living with a partner? Patient declined 02/20/2024 AUDIT-C Answer Date Recorded Q1: How often do you have a drink containing alc ohol? Patient declined 02/20/2024 Q2: How many drinks containi ng alcohol do you have on a typical day when you are drinking? Patient declined 02/20/2024 Q3: How often do you have si x or more drinks on one occasion? Patient declined 02/20/2024 Overall Financial Resource Strain (CARDIA) Answe r Date Recorded How hard is it for you to pa y for the very basics like food, housing, medical care, and heating? Patient declined 02/20/2024 [facility] [place] of Occupat ional Health - Occupational Stress Questionnaire Answer Date Recorded Do you feel stress - tense, restless, nervous, or anxious, or unable to sleep at night because your mind is troubled all the time - these days? Patient declined 02/20/2024 Exercise Vital Sign Answer Date Recorde d On average, how many days pe r week do you engage in moderate to strenuous exercise (like a brisk walk)? Patient declined On average, how many minutes do you engage in exercise at this level? Patient declined 02/20/2024 Hunger Vital Sign Answer Date Recorded Within the past 12 months, y ou worried that your food would run out before you got the money to buy more. Patient declined Within the past 12 months, t he food you bought just didn't last and you didn't have money to get more. Patient declined PRAPARE - Transportation Answer Date Re corded In the past 12 months, has l ack of transportation kept you from medical appointments or from getting medications? Patient declined 02/20/2024 In the past 12 months, has l ack of transportation kept you from meetings, work, or from getting things needed for daily living? Patient declined 02/20/2024 Housing Stability Vital Sign Answer Timbo e Recorded In the last 12 months, was t here a time when you were not able to pay the mortgage or rent on time? Patient declined 02/20/20 24 In the past 12 months, how m any times have you moved where you were living? 1 02/20/2024 At any time in the past [address] [facility], were you homeless or living in a senior living (including now)? 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 Not on file Not on file Not on f ile Last Filed Vital Signs Vital Sign Reading Time Taken Comments Blood Pressure 111/67 08/04/2024 3:00 PM [facility]IOR [facility] [employer] Pulse 72 08/04/2024 3:00 PM [facility]IOR [facility] [employer] Temperature 36.4 C (97.5 F) 08/04/2024 11:19 AM SENIOR [facility]GER [employer] Respiratory Rate 16 08/04/2024 11:19 AM SENIOR [facility] [employer] Oxygen Saturation 95% 08/04/2024 3:00 PM SENIOR [facility] [employer] Inhaled Oxygen Concentration - - Weight 89.8 kg (198 lb) 08/04/2024 11:19 AM S[facility]IOR [facility] [employer] Height 177.8 cm (5' 10 ) 08/04/2024 11:19 AM SENIOR [facility] [employer] Body Mass Index 28.41 08/04/2024 11:19 AM SENIOR [facility]NAGER [employer] Plan of Treatment Upcoming Encounters Date Type Department Care Team (Late st Contact Info) Description 11/09/2024 2:00 PM SENIOR [facility]NAGER [facility] Office Visit [facility] [place] [address] [place] [address] Stef Berry MD [address] [address] Health Maintenance Due Date Last Done Comments Hepatitis C Virus (HCV) Screening 1950 Cologuard 11/26/1999 DEXA Bone Density 02/14/2023 02/14/2021 Discussion re Stopping Mammograms 2024 SARS-COV-2 Immunization ( season) 2024 06/01/2024, 07/01/2023, 04/23/2022, Additional history exists Immunochemical Fecal Occult Blood 02/21/2025 02/22/2024 Mammogram 11/18/2025 11/19/2023, 10/09, 09/11/2021, Additional history exists Td Immunization Every 10 Years (Adults With 1 Tdap) 12/27/2025 12/28/2015, 06/28/2011 Colonoscopy 01/23/2031 01/23/2021, 07/31/2015 Colorectal Cancer Screening 01/23/2031 01/23/2021, 07/31/2015 TdaP Immunization Discontinued 06/28/2011 DTaP/Tdap/Td Immunization Discontinued 12/28/2015, Pneumococcal Immunization (50+ years) Completed 09/12/2020, 02/08/2016 Pneumococcal Immunization Combined Discontinued 09/12/2020, 02/08/2016 Zoster Immunization Completed 09/16/2023, 04/29/2023, 02/08/2016 Respiratory Syncytial Virus (RSV) Immunization (Adult) Completed 10/07/2023 Influenza Immunization Completed , 06/20/2023, 06/18/2022, Additional history exists Hepatitis B Immunization Aged Out No longer eligible based on patient's age to complete this topic Meningococcal Immunization (ACWY) Aged Out No longer eligible based on patient's age to complete this topic Rotavirus Immunization Aged Out No lo nger eligible based on patient's age to complete this topic Medical Devices Implanted Type Area Interventional Pain Physician Device Identifier Shelf Expiration Date Model / Serial / Lot Washer Asns Iii 7x8mm Ss - [id number] Implanted:Qty : 2 on 12/29/2015 by Dereck Burns MD at [facility] IMPLANT Right: Patella FRANCIS[employer] J / [employer] [id number] / / [id number] 4.0 Pt Screw 40 Mm Ss Implanted:Qty : 1 on 12/29/2015 by Dereck Burns MD at [facility] Right: Patella [employer] / [employer] [id number] / / [id number] 4.0 Pt Screw 44 Mm Ss Implanted:Qty : 1 on 12/29/2015 by Dereck Burns MD at [facility] Right: Patella / / [id number] Explanted Type Area Interventional Pain Physician Device Identifier Shelf Expiration Date Model / Serial / Lot Washer Asns Iii 7x8mm Ss - [id number] Explanted:Qty : 1 on 12/29/2015 at [facility] IMPLANT Right: Patella FRANCIS[employer] J / [employer] [id number] / / [id number] 4.0 Pt Screw 40 Mm Explanted:Qty : 1 on 12/29/2015 at [facility] Right: Patella [employer]ANCIS[employer] J / [employer] [id number] / / [id number] Procedures Procedure Name Priority Date/Time Associated Diagnosis Comments URINALYSIS REFLEX IF INDICATED BY ABNORMAL RESULTS STAT 08/04/2024 1:13 PM SENIOR MANAGER [facility] CT ABDOMEN PELVIS W/ CONTRAST Stat with Interpretation 08/04/2024 12:35 PM SENIOR MANAGER [employer] GOLD TOP TUBE STAT 08/04/2024 11:38 AM SENIOR MANAGER [employer] BLUE TOP TUBE STAT 08/04/2024 11:38 AM SENIOR MANAGER [employer] CBC WITH AUTO DIFFERENTIAL STAT 08/04/2024 11:38 AM SENIOR [facility]NAGER [employer] EXTRA TUBES STAT 08/04/2024 11:38 AM SENIOR MANAGER [employer] LIPASE STAT 08/04/2024 11:38 AM SENIOR MANAGER [employer] CMP (COMPREHENSIVE METABOLIC PANEL) STAT 08/04/2024 11:38 AM SENIOR MANAGER [employer] COMPLETE BLOOD COUNT (CBC) WITH DIFF STAT 08/04/2024 11:38 AM SENIOR MANAGER [employer] STOOL, OCCULT BLOOD, DIAGNOSTIC, VIA GUAIAC Routine 02/22/2024 7:22 AM CDT [facility] SCREENING BILATERAL DIGITAL W CAD W SERJIO Routine 11/19/2023 10:33 AM CDT Visit for screening mammogram [facility] BONE DENSITOMETRY AXIAL SKELETON Routine 02/14/2021 10:21 AM CDT Menopause from Last 3 Months or Most Recently Relevant to Health Maintenance Results * (ABNORMAL) Urinalysis w/ Reflex (08/04/2024 1:13 PM SENIOR MANAGER [employer]) SPECIFIC GRAVITY 1.005 1.003 - 1.030 08/04/2024 1:45 PM SENIOR MANAGER [employer] URINE PH 6.5 5.0 - 9.0 08/04/2024 1:45 PM SENIOR MANAGER [employer] WBC ESTERASE Negative Negative 08/04/2024 1:45 PM SENIOR MANAGER [employer] [facility] NITRITE Negative Negative 08/04/2024 1:45 PM SENIOR MANAGER [employer] [facility] PROTEIN, RANDOM URINE 15 mg/dL(A) Negative 08/04/2024 1:45 PM SENIOR MANAGER [employer] [facility] URINE GLUCOSE, QUAL Negative Negative 08/04/2024 1:45 PM SENIOR MANAGER [employer] [facility] URINE KETONES Negative Negative 08/04/2024 1:45 PM SENIOR MANAGER [employer] [facility] UROBILINOGEN Normal Normal mg/dL 08/04/2024 1:45 PM SENIOR MANAGER [employer] [facility] URINE BLOOD 10 /uL(A) Negative enedina/ul 08/04/2024 1:45 PM SENIOR MANAGER [employer] URINALYSIS COLOR Yellow 08/04/20 1:45 PM SENIOR MANAGER [employer] URINALYSIS CLARITY Clear 08/04/2024 1:45 PM SENIOR MANAGER [employer] [facility] WBC (Urine) Negative Negative, 0-5 /hpf 08/04/2024 1:45 PM SENIOR MANAGER [employer] URINE RBC'S 0-2 Negative, 0-2 /hpf 08/04/2024 1:45 PM SENIOR MANAGER [employer] [facility] EPITHELIAL CELLS Occasional /lpf 08/04/20 1:45 PM SENIOR MANAGER [employer] BACTERIA, URINE Negative Negative /hpf 08/04/2024 1:45 PM SENIOR MANAGER [employer] Urine URINE SPECIMEN / Unknown Non-Phlebotomy Collection / Unknown 08/04/2024 1:13 PM SENIOR MANAGER [employer] 08/04/2024 1:26 PM SENIOR MANAGER [employer] us Markos Winston PAC URINE ORDERABLES Fin al Result [facility] [address] [place] [address] * CT ABDOMEN PELVIS W/ CONTRAST (08/04/2024 12:35 PM SENIOR MANAGER [employer]) Anatomical Region Laterality Modality Abdomen N/A Computed Tomogra phy 08/04/2024 1:32 PM SENIOR MANAGER [employer] Impressions 08/04/2024 1:35 PM SENIOR [facility]NAGER [employer] IMPRESSION: Significant wall thickening and inflammation of the body of the stomach with submucosal edema. Areas of lucency appear to be gas in the lumen although 1 of these does approach the serosal wall and therefore the possibility of peptic ulcer disease should be considered. Further assessment might be made with upper endoscopy. Multifocal areas of bowel wall thickening involving the stomach, inflammation of the duodenal, small bowel and colon which is nonspecific but could be infectious or inflammatory gastro enterocolitis. Small amount of ascites. Fat containing ventral hernias with some hazy inflammation. Status post hysterectomy. Left renal cyst 8.0 cm. Moderate sigmoid colon diverticulosis without overt diverticulitis. Unchanged 2 cm left adrenal nodule. Narrative 08/04/2024 1:35 PM SENIOR MANAGER [employer] EXAM DESCRIPTION: CT ABDOMEN PELVIS W/ CONTRAST REASON FOR STUDY: c/o generalized abd pain and fatigue x4 days. Patient completed abx for UTI 3 days ago TECHNIQUE: CT scan of the abdomen and pelvis performed with intravenous and without oral contrast using helical scanning technique with dynamic intravenous contrast injection. Reconstructed coronal and sagittal MPR images reviewed. All images stored on PACS. Automated exposure control was used as a dose optimization technique for this examination. CONTRAST TYPE/DOSE: 100mL of IOPAMIDOL 76 % IV SOLN injected via Intravenous COMPARISON: 02/20/2024. FINDINGS: LOWER CHEST: Lung bases scratch at mild interstitial thickening in the lung bases. There is no pleural effusion. LIVER: Liver size and contour normal. No focal hepatic lesion. GALLBLADDER: No gallstones or overt inflammatory change. BILE DUCTS: No biliary ductal dilation. SPLEEN: Spleen size normal. No focal lesion. PANCREAS: No pancreatic mass or inflammatory change. ADRENALS: Normal right adrenal gland. Redemonstration 2 cm left adrenal nodule. KIDNEYS/URINARY TRACT: No right renal calculus. No left renal calculus. No ureteral calculus. There is a low-density left renal lesion characteristic of a cyst 8.0 x 6.6 cm. Urinary bladder unremarkable. GI: Moderate sigmoid colon diverticulosis. Small area of wall thickening distal descending colon. The appendix is normal. There is an area of inflammation and wall thickening distal small bowel at the distal ileum. Some additional areas of small-bowel wall thickening in the left lower quadrant. There is significant wall thickening and inflammation with submucosal edema throughout the body of the stomach, the individual anterior wall is 2.2 cm. Areas of lucency appear to be gas in the lumen although 1 of these does approach the serosal wall and therefore the possibility of peptic ulcer disease should be considered. There is inflammatory change of the duodenal. No evidence of perforation. There is a fat containing ventral hernia with some hazy inflammation. This is supraumbilical. There is a tiny umbilical fat containing hernia. PERITONEUM: Small amount of ascites in the lower abdomen and pelvis. No free intraperitoneal air. RETROPERITONEUM: No retroperitoneal mass or lymphadenopathy. REPRODUCTIVE: Status post hysterectomy. No pelvic mass. VASCULATURE: No abdominal aortic aneurysm. MUSCULOSKELETAL: Bone windows demonstrate no acute or aggressive osseous abnormality. OTHER: No other abnormality. THIS IS AN ELECTRONICALLY VERIFIED FINAL REPORT 08/04/2024 1:32 PM - Electronically signed by Celestino MillerD. CH: [facility]CO Report ID: [id number] Reading Location: [id number] Procedure Note Celestino Guillermo Jr., MD - 08/04/2024 EXAM DESCRIPTION: CT ABDOMEN PELVIS W/ CONTRAST REASON FOR STUDY: c/o generalized abd pain and fatigue x4 days. Patient completed abx for UTI 3 days ago TECHNIQUE: CT scan of the abdomen and pelvis performed with intravenous and without oral contrast using helical scanning technique with dynamic intravenous contrast injection. Reconstructed coronal and sagittal MPR images reviewed. All images stored on PACS. Automated exposure control was used as a dose optimization technique for this examination. CONTRAST TYPE/DOSE: 100mL of IOPAMIDOL 76 % IV SOLN injected via Intravenous COMPARISON: 02/20/2024. FINDINGS: LOWER CHEST: Lung bases scratch at mild interstitial thickening in the lung bases. There is no pleural effusion. LIVER: Liver size and contour normal. No focal hepatic lesion. GALLBLADDER: No gallstones or overt inflammatory change. BILE DUCTS: No biliary ductal dilation. SPLEEN: Spleen size normal. No focal lesion. PANCREAS: No pancreatic mass or inflammatory change. ADRENALS: Normal right adrenal gland. Redemonstration 2 cm left adrenal nodule. KIDNEYS/URINARY TRACT: No right renal calculus. No left renal calculus. No ureteral calculus. There is a low-density left renal lesion characteristic of a cyst 8.0 x 6.6 cm. Urinary bladder unremarkable. GI: Moderate sigmoid colon diverticulosis. Small area of wall thickening distal descending colon. The appendix is normal. There is an area of inflammation and wall thickening distal small bowel at the distal ileum. Some additional areas of small-bowel wall thickening in the left lower quadrant. There is significant wall thickening and inflammation with submucosal edema throughout the body of the stomach, the individual anterior wall is 2.2 cm. Areas of lucency appear to be gas in the lumen although 1 of these does approach the serosal wall and therefore the possibility of peptic ulcer disease should be considered. There is inflammatory change of the duodenal. No evidence of perforation. There is a fat containing ventral hernia with some hazy inflammation. This is supraumbilical. There is a tiny umbilical fat containing hernia. PERITONEUM: Small amount of ascites in the lower abdomen and pelvis. No free intraperitoneal air. RETROPERITONEUM: No retroperitoneal mass or lymphadenopathy. REPRODUCTIVE: Status post hysterectomy. No pelvic mass. VASCULATURE: No abdominal aortic aneurysm. MUSCULOSKELETAL: Bone windows demonstrate no acute or aggressive osseous abnormality. OTHER: No other abnormality. THIS IS AN ELECTRONICALLY VERIFIED FINAL REPORT 08/04/2024 1:32 PM - Electronically signed by Celestino Guillermo M.D. CH: [facility]CO Report ID: [id number] Reading Location: [id number] IMPRESSION: Significant wall thickening and inflammation of the body of the stomach with submucosal edema. Areas of lucency appear to be gas in the lumen although 1 of these does approach the serosal wall and therefore the possibility of peptic ulcer disease should be considered. Further assessment might be made with upper endoscopy. Multifocal areas of bowel wall thickening involving the stomach, inflammation of the duodenal, small bowel and colon which is nonspecific but could be infectious or inflammatory gastro enterocolitis. Small amount of ascites. Fat containing ventral hernias with some hazy inflammation. Status post hysterectomy. Left renal cyst 8.0 cm. Moderate sigmoid colon diverticulosis without overt diverticulitis. Unchanged 2 cm left adrenal nodule. Markos iWnston PAC IMG CT ORDERABLES Fi nal Result * Gold Top Tube (08/04/2024 11:38 AM SENIOR MANAGER [employer]) Blood No Phlebotomy Charged / Unknown 08/04/2024 11:38 AM SENIOR MANAGER [employer] 08/04/2024 11:55 AM SENIOR MANAGER [employer] Markos Winston PAC CHEMISTRY ORDERABLES Final Result [facility] [address] [place] [address] * Blue Top Tube (08/04/2024 11:38 AM SENIOR MANAGER [employer]) Blood No Phlebotomy Charged / Unknown 08/04/2024 11:38 AM SENIOR MANAGER [employer] 08/04/2024 11:55 AM SENIOR MANAGER [employer] Markos Winston PAC HEMATOLOGY ORDERABLE S Final Result [facility] [address] [place] [address] * (ABNORMAL) CBC with Auto Differential (08/04/2024 11:38 AM SENIOR MANAGER [employer]) WBC 8.19 4.00 - 12.00 10(3)/mcL 08/04/2024 11:56 AM SENIOR MANAGER [employer] [facility] RBC 4.47 3.80 - 5.30 10(6)/mcL 08/04/2024 11:56 AM [facility] HEMOGLOBIN (HGB) 13.6 12.0 - 15.8 g/dL 08/04/2024 11:56 AM [facility] HEMATOCRIT (HCT) 39.9 36.0 - 47.0 % 08/04/2024 11:56 AM [facility] MCV 89.3 82.0 - 96.0 fL 08/04/2024 11:56 AM [facility] MCH 30.4 26.0 - 34.0 pg 08/04/2024 11:56 AM [facility] MCHC 34.1 31.0 - 36.0 g/dL 08/04/2024 11:56 AM [facility] PLATELET COUNT 327 140 - 440 10(3)/[facility] 08/04/2024 11:56 AM SENIOR MANAGER [employer] [facility] RDW 12.5 11.8 - 15.5 % 08/04/2024 11:56 AM [facility] MPV 9.6(L) 9.7 - 12.4 fL 08/04/2024 11:56 AM [facility] NEUTROPHILS 72.7 47.0 - 73.0 % 08/04/2024 11:56 AM [facility] LYMPHOCYTES 15.5(L) 18.0 - 42.0 % 08/04/2024 11:56 AM [facility] MONOCYTES 11.6 4.0 - 12.0 % 08/04/2024 11:56 AM [facility] EOSINOPHILS 0.0 0.0 - 5.0 % 08/04/2024 11:56 AM SENIOR [facility]NAGER [employer] BASOPHILS 0.2 0.0 - 1.0 % 08/04/2024 11:56 AM SENIOR [facility]NAGER [employer] ABSOLUTE NEUTROPHILS 5.95 1.60 - 7.70 10(3)/[facility] 08/04/2024 11:56 AM SENIOR MANAGER [employer] [facility] ABSOLUTE LYMPHOCYTES 1.27(L) 1.30 - 3.20 10(3)/[facility] 08/04/2024 11:56 AM SENIOR MANAGER [employer]ITION[employer] [facility] ABSOLUTE MONOCYTES 0.95 0.20 - 1.00 10(3)/[facility] 08/04/2024 11:56 AM SENIOR MANAGER MERGERS [employer] ACQUISITIONS [facility] ABSOLUTE EOSINOPHIL 0.00 0.00 - 0.40 10(3)/[facility] 08/04/2024 11:56 AM [facility] ABSOLUTE BASOPHILS 0.02 0.00 - 0.10 10(3)/[facility] 08/04/2024 11:56 AM SENIOR MANAGER MERGERS [employer] ACQUISITIONS [facility] NRBC PER 100 WBC 0 08/04/20 11:56 AM SENIOR MANAGER [employer]ERS [employer] ACQUISITIONS [facility] Blood Venipuncture / Unknown 08/04/2024 11:38 AM SENIOR MANAGER [employer] AC[employer]ISITIONS 08/04/2024 11:54 AM SENIOR MANAGER [employer]ERS [employer] ACQUISITIONS Markos Winston PAC HEMATOLOGY ORDERABLE S Final Result [facility] [address] [place] [address] * Lipase (08/04/2024 11:38 AM SENIOR MANAGER [employer]ERS [employer] ACQUISITIONS) LIPASE 10 8 - 78 U/L 08/04/2024 12:17 PM SENIOR MANAGER [employer]ERS [employer] ACQUISITIONS [facility] Blood Venipuncture / Unknown 08/04/2024 11:38 AM SENIOR MANAGER [employer]ERS [employer] ACQUISITIONS 08/04/2024 11:54 AM SENIOR MANAGER [employer] ACQUISITIONS Markos Wintson PAC CHEMISTRY ORDERABLES Final Result [facility] [place] [address] * (ABNORMAL) CMP (08/04/2024 11:38 AM SENIOR MANAGER [employer]GERS [employer] ACQUISITIONS) SODIUM 135(L) 136 - 145 mmol/L 08/04/2024 12:17 PM [facility] POTASSIUM 3.8 3.5 - 5.1 mmol/L 08/04/2024 12:17 PM [facility] CHLORIDE 101 98 - 107 mmol/L 08/04/2024 12:17 PM [facility] CO2, VENOUS 24 22 - 30 mmol/L 08/04/2024 12:17 PM [facility] ANION GAP 13.8 <18.0 mmol/L 08/04/2024 12:17 PM [facility] GLUCOSE 135(H) 70 - 99 mg/dL 08/04/2024 12:17 PM [facility] BUN 20 10 - 20 mg/dL 08/04/2024 12:17 PM [facility] CREATININE, BLOOD 0.87 0.60 - 1.00 mg/dL 08/04/2024 12:17 PM [facility] BUN/CREATININE RATIO 23(H) 12 - 20 ratio 08/04/2024 12:17 PM [facility] TOTAL PROTEIN 6.8 6.3 - 8.2 g/dL 08/04/2024 12:17 PM [facility] ALBUMIN 3.7 3.5 - 5.0 g/dL 08/04/2024 12:17 PM [facility] A/G RATIO 1.2 1.0 - 2.2 08/04/2024 12:17 PM [facility] CALCIUM 9.9 8.7 - 10.5 mg/dL 08/04/2024 12:17 PM [facility] T BILI 0.8 0.2 - 1.2 mg/dL 08/04/2024 12:17 PM SENIOR MANAGER MERGERS [employer] ACQUISITIONS [facility] SGOT (AST) 13 5 - 34 U/L 08/04/2024 12:17 PM [facility] SGPT (ALT) 13 0 - 55 U/L 08/04/2024 12:17 PM SENIOR MANAGER MERGERS [employer] ACQUISITIONS [facility] ALKALINE PHOSPHATASE 64 40 - 150 U/L 08/04/2024 12:17 PM SENIOR MANAGER [employer]ERS [employer] ACQUISITIONS [facility] GFR, ESTIMATED >60 >=60 08/04/2024 12:17 PM SENIOR MANAGER [employer]ERS [employer] ACQUISITIONS [facility] Comment: Creatinine Clearance is the preferred criteria for selecting drug dose adjustments in renally impaired patients. The GFR is provided as additional pertinent clinical information. GFR is reported in mL/min/1.73 sq m. Calculation based on the Chronic Kidney Disease Epidemiology Collaboration (CKD- EPI) equation refit without adjustment for race. GFR, EST. >60 >=60 12:17 PM SENIOR MANAGER [employer]GERS [employer] ACQUISITIONS [facility] GFR, EST. NONAFRICAN >60 >=60 08/04/2024 12:17 PM SENIOR MANAGER [employer]GERS [employer] ACQUISITIONS [facility] Blood Venipuncture / Unknown 08/04/2024 11:38 AM SENIOR MANAGER [employer]ERS [employer] ACQUISITIONS 08/04/2024 11:54 AM SENIOR MANAGER [employer]ERS [employer] ACQUISITIONS Markos Winston PAC CHEMISTRY ORDERABLES Final Result [facility] [address] [place] [address] * (ABNORMAL) Stool, Occult Blood, Diagnostic, via Guaiac (02/22/2024 7:22 AM CDT) OCCULT BLOOD DIAG, GI BLEED Positive(A ) Negative 02/22/2024 12:43 PM CDT [facility] Stool STOOL SPECIMEN / Unknown Non-Phlebotomy Collection / Unknown 02/22/2024 7:22 AM CDT 02/22/2024 7:36 AM CDT Salo Rock MD BODY FLUIDS & STOOLS ORDERABL ES Final Result [facility] [place] [address] * ROSEANNA SCREENING BILATERAL DIGITAL W CAD W SERJIO (11/19/2023 10:33 AM CDT) Anatomical Region Laterality Modality breast Bilateral Mammography 11/19/2023 10:3 2 AM CDT Narrative 11/19/2023 2:45 PM CDT - ROSEANNA SCREENING BILATERAL DIGITAL W CAD W SERJIO BILATERAL DIGITAL SCREENING MAMMOGRAM 3D/2D WITH CAD WITH MEDIOLATERAL OBLIQUE CRANIOCAUDAL: 11/19/2023 The study was acquired using digital technology and interpreted from soft copy. Current study was also evaluated with ICAD version 7.2. 2D digital mammographic views, as well as 3D digital tomosynthesis were performed in the CC and MLO projections. CLINICAL: Routine screening. Patient has no complaints. Personal history of skin cancer. Daughter premenopausal with breast cancer. Maternal aunt had breast cancer. Mother with ovarian cancer. COMPARISONS: Comparison is made to exams dated: 10/18/2022, 09/11/2021, and 07/11/2020 [facility]. BREAST TISSUE:There are scattered fibroglandular densities in both breasts. FINDINGS: There are benign calcifications in both breasts. No significant masses, calcifications, or other findings are seen in either breast. There has been no significant interval change. IMPRESSION: BI-RAD 2 BENIGN There is no mammographic evidence of malignancy. A 1 year screening mammogram is recommended. A letter will be sent to the patient with these results. The patient will be entered into a reminder system with a target due date of 1 year for her next screening exam. Electronically signed by: Leslie nayak/abel:11/19/2023 14:06:23 Remote Pilot Operator(s): RT Darryl(R)(M), [facility] letter sent: Normal Exam Reading location: [place] BI-RADS: 2 Benign Procedure Note Leslie Casey MD - 11/19/2023 - ROSEANNA SCREENING BILATERAL DIGITAL W CAD W SERJIO BILATERAL DIGITAL SCREENING MAMMOGRAM 3D/2D WITH CAD WITH MEDIOLATERAL OBLIQUE CRANIOCAUDAL: 11/19/2023 The study was acquired using digital technology and interpreted from soft copy. Current study was also evaluated with ICAD version 7.2. 2D digital mammographic views, as well as 3D digital tomosynthesis were performed in the CC and MLO projections. CLINICAL: Routine screening. Patient has no complaints. Personal history of skin cancer. Daughter premenopausal with breast cancer. Maternal aunt had breast cancer. Mother with ovarian cancer. COMPARISONS: Comparison is made to exams dated: 10/18/2022, 09/11/2021, and 07/11/2020 [facility]. BREAST TISSUE:There are scattered fibroglandular densities in both breasts. FINDINGS: There are benign calcifications in both breasts. No significant masses, calcifications, or other findings are seen in either breast. There has been no significant interval change. IMPRESSION: BI-RAD 2 BENIGN There is no mammographic evidence of malignancy. A 1 year screening mammogram is recommended. A letter will be sent to the patient with these results. The patient will be entered into a reminder system with a target due date of 1 year for her next screening exam. Electronically signed by: Leslie nayak/abel:11/19/2023 14:06:23 Remote Pilot Operator(s): RT Darryl(R)(M), [facility] letter sent: Normal Exam Reading location: [facility] BI-RADS: 2 Benign Bear Ling MD IMG MAMMO ORDERABLES Final Result * [facility] BONE DENSITOMETRY AXIAL SKELETON (02/14/2021 10:21 AM CDT) Anatomical Region Laterality Modality BODY N/A Other 02/15/2021 2:54 PM CDT Impressions 02/15/2021 2:57 PM CDT IMPRESSION: Low bone mass. REFERENCE: Bone mineral density: Normal (T-score above or = -1.0) Low bone mass (T-score between -1.0 and -2.5) replaces the previously used term osteopenia Osteoporosis (T-score = or below -2.5) Medical evaluation for secondary causes of low bone mineral density may be appropriate. FRAX is a World Health Organization validated fracture risk assessment tool that calculates a person's 10 year probability of a major osteoporosis related fracture and hip fracture. According to the National Osteoporosis Foundation guidelines, postmenopausal women and men age 50 or older with low bone mass and a 10 year probability of a major osteoporosis related fracture = or greater than 20% or a 10 year probability of a hip fracture = or greater than 3% should be considered for treatment. For further information, including treatment recommendations, please refer to the 2013 ISCD Official Positions (http://www.iscd.org) and the NOF's Clinician's Guide to Prevention and Treatment of Osteoporosis (http://www.nof.org/professionals/clinical-guidelines) Narrative 02/15/2021 2:57 PM CDT EXAM DESCRIPTION: ROSEANNA BONE DENSITOMETRY AXIAL SKELETON REASON FOR STUDY: 70 year old postmenopausal white female with given history of screening. Interventional Pain Physician/Model: CohesiveFT (S/N [id number]) CLINICAL INFORMATION: Current height: 70 inches Maximum height: 70.75 inches Weight: 200 pounds Risk factors: Use of antacids for more than 6 months. Has taken vitamin-D and multivitamin. Performs regular weight-bearing exercise. Regularly consumes dairy products. Drinks caffeinated beverages. COMPARISON: None available. FINDINGS: AP LUMBAR SPINE L1-L4: Total BMD is 1.615 g/cm2 T-score is 3.4 LEFT HIP: Total BMD is 0.950 g/cm2 T-score is -0.5 Femoral neck BMD is 0.838 g/cm2 T-score is -1.4 Fracture risk assessment (FRAX): 10 year risk for a major osteoporotic fracture is 9.9 % 10 year risk for a hip fracture is 1.5 % The FRAX tool has not been validated in patients currently or previously treated with pharmacotherapy for osteoporosis. In such patients, clinical judgement must be exercised in interpreting FRAX scores as the fracture risk may be overestimated. THIS IS AN ELECTRONICALLY VERIFIED FINAL REPORT 02/15/2021 2:54 PM - Electronically signed by Jose Alicea M.D. RB: CADEN Report ID: [id number] Reading Location: [place] [address] Procedure Note Jose Alicea MD - 02/15/2021 EXAM DESCRIPTION: ROSEANNA BONE DENSITOMETRY AXIAL SKELETON REASON FOR STUDY: 70 year old postmenopausal white female with given history of screening. Interventional Pain Physician/Model: CohesiveFT (S/N [id number]) CLINICAL INFORMATION: Current height: 70 inches Maximum height: 70.75 inches Weight: 200 pounds Risk factors: Use of antacids for more than 6 months. Has taken vitamin-D and multivitamin. Performs regular weight-bearing exercise. Regularly consumes dairy products. Drinks caffeinated beverages. COMPARISON: None available. FINDINGS: AP LUMBAR SPINE L1-L4: Total BMD is 1.615 g/cm2 T-score is 3.4 LEFT HIP: Total BMD is 0.950 g/cm2 T-score is -0.5 Femoral neck BMD is 0.838 g/cm2 T-score is -1.4 Fracture risk assessment (FRAX): 10 year risk for a major osteoporotic fracture is 9.9 % 10 year risk for a hip fracture is 1.5 % The FRAX tool has not been validated in patients currently or previously treated with pharmacotherapy for osteoporosis. In such patients, clinical judgement must be exercised in interpreting FRAX scores as the fracture risk may be overestimated. THIS IS AN ELECTRONICALLY VERIFIED FINAL REPORT 02/15/2021 2:54 PM - Electronically signed by Jose Alicea M.D. RB: CADEN Report ID: [id number] Reading Location: [place] [address] IMPRESSION: Low bone mass. REFERENCE: Bone mineral density: Normal (T-score above or = -1.0) Low bone mass (T-score between -1.0 and -2.5) replaces the previously used term osteopenia Osteoporosis (T-score = or below -2.5) Medical evaluation for secondary causes of low bone mineral density may be appropriate. FRAX is a World Health Organization validated fracture risk assessment tool that calculates a person's 10 year probability of a major osteoporosis related fracture and hip fracture. According to the National Osteoporosis Foundation guidelines, postmenopausal women and men age 50 or older with low bone mass and a 10 year probability of a major osteoporosis related fracture = or greater than 20% or a 10 year probability of a hip fracture = or greater than 3% should be considered for treatment. For further information, including treatment recommendations, please refer to the 2013 ISCD Official Positions (http://www.iscd.org) and the NOF's Clinician's Guide to Prevention and Treatment of Osteoporosis (http://www.nof.org/professionals/clinical-guidelines) Domingo Wolf MD IMG DEXA ORDERABLES Final Resu lt from Last 3 Months or Most Recently Relevant to Health Maintenance Insurance MEDICARE [employer] GENERIC Advance Directives * Full Code (Latest Code Status on File) Date Activated Date Inactivated Comments 02/20/2024 8:42 PM 02/23/2024 2:54 PM CPR-Full Gunnar atment: FULL ARREST: Attempt Resuscitation/CPR wit intubation and mechanical ventilation. PRE-ARREST: Use entire range of life support measures to stabilize the patient. * Full Code Date Activated Date Inactivated Comments 01/03/2016 10:21 AM 01/23/2021 5:00 AM * Full Code Date Activated Date Inactivated Comments 12/29/2015 3:06 PM 12/30/2015 6:29 PM CPR-Full Gunnar atment: FULL ARREST: Attempt Resuscitation/CPR wit intubation and mechanical ventilation. PRE-ARREST: Use entire range of life support measures to stabilize the patient. Care Teams Civil Celebrant Relationship Specialty Start Date End Date Bear Ling MD [address] [place] [address] PCP - General Internal Medicine 07/31/15 Stef Berry MD #2 [facility] [address] [place] [address] Consulting Physician Interventional Cardiology 03/17/24
--- OUTSIDE RECORDS SUMMARY | 2024-10-14 00:33 | XMS_ITS ---
Author Organization [facility] Address [address] [place] [address] Phone Care Team Providers Care Art Framing Manager Name Role Phone KAYKAY ANN, AMPARO Mendoza Unavailable [phone] MILAN ANN, JANET L Primary Care Provider [phone] Problems Includes: Active, inactive, and resolved Problems All Visits Onset Date Resolved Date Provider Condition S tatus History of Cervical Dysplasia 12/31/2016 AMPARO MCCRACKEN MD Active Last Documented On 12/31/2016 9:11AM ; [facility] Note: Unchanged Breast Fibrocystic Disease 12/24/2013 AMPARO MCCRACKEN MD Active Last Documented On 12/24/2013 9:59AM ; [facility] Note: Unchanged Plan of Treatment Findings Encounter Date She will let us know if she has other problems in the meantime WELL WOMAN - ESTABLISHED PT with AMPARO MCCRACKEN MD 04/28/2023 Last Documented On 3 1:39PM ; [facility] Ordered follow-up visit 2 ye ars or as needed WELL WOMAN - ESTABLISHED PT with AMPARO MCCRACKEN MD 04/28/2023 Last Documented On 3 1:39PM ; [facility] She will let us know if she has other problems in the meantime WELL WOMAN - ESTABLISHED PT with AMPARO MCCRACKEN MD 02/02/2021 Last Documented On 1 9:25AM ; [facility] Ordered follow-up visit 2 ye ars or as needed WELL WOMAN - ESTABLISHED PT with AMPARO MCCRACKEN MD 02/02/2021 Last Documented On 1 9:25AM ; [facility] Ordered patient will call fo r appointment as needed SICK VISIT with MEYR SEVERINO [facility] 08/18/2020 Last Documented On 0 4:04PM ; [facility] Ordered return to the clinic if condition worsens or new symptoms arise SICK VISIT with MERY SEVERINO [facility] 08/18/2020 Last Documented On 0 4:04PM ; [facility] She will let us know if she has other problems in the meantime ANNUAL DEMAND INSPECTOR EXAM with AMPARO MCCRACKEN MD 01/22/2019 Last Documented On 9 12:02PM ; [facility] Ordered follow-up visit 2 ye ars or as needed ANNUAL DEMAND INSPECTOR EXAM with AMPARO MCCRACKEN MD 01/22/2019 Last Documented On 9 12:02PM ; [facility] She will let us know if she has other problems in the meantime ANNUAL DEMAND INSPECTOR EXAM with AMPARO MCCRACKEN MD 12/31/2016 Last Documented On 7 9:26AM ; [facility] Ordered follow-up visit 2 ye ars or as needed ANNUAL DEMAND INSPECTOR EXAM with AMPARO MCCRACKEN MD 12/31/2016 Last Documented On 7 9:26AM ; [facility] She will let us know if she has other problems in the meantime ANNUAL DEMAND INSPECTOR EXAM with AMPARO MCCRACKEN MD 12/27/2014 Last Documented On 5 10:44AM ; [facility] Ordered follow-up visit 2 ye ars or as needed ANNUAL DEMAND INSPECTOR EXAM with AMPARO MCCRACKEN MD 12/27/2014 Last Documented On 5 10:44AM ; [facility] She will let us know if she has other problems in the meantime ANNUAL DEMAND INSPECTOR EXAM with AMPARO MCCRACKEN MD 12/24/2013 Last Documented On 4 10:01AM ; [facility] Ordered follow-up visit 1 ye ar or as needed ANNUAL DEMAND INSPECTOR EXAM with AMPARO MCCRACKEN MD 12/24/2013 Last Documented On 4 10:01AM ; [facility] She will let us know if she has other problems in the meantime ANNUAL DEMAND INSPECTOR EXAM with AMPARO MCCRACKEN MD 12/22/2012 Last Documented On 3 9:13AM ; [facility] Ordered follow-up visit 1 ye ar or as needed ANNUAL DEMAND INSPECTOR EXAM with AMPARO MCCRACKEN MD 12/22/2012 Last Documented On 3 9:13AM ; [facility] Ordered follow-up visit 1 ye ar or as needed NEW TELEVISION WRITER EXAM with AMPARO MCCRACKEN MD 12/20/2011 Last Documented On 2 9:52AM ; [facility] Instructions to patient Instructions for patient : B reast Self Exam discussed Last Documented On 3 1:19PM ; [facility] Instructions for patient : B reast Self Exam discussed Last Documented On 1 9:09AM ; [facility] Instructions for patient Last Documented On 0 3:06PM ; [facility] Instructions for patient : B reast Self Exam discussed Last Documented On 9 11:45AM ; [facility] Instructions for patient : B reast Self Exam discussed Last Documented On 7 9:09AM ; [facility] Instructions for patient : B reast Self Exam discussed Last Documented On 5 10:21AM ; [facility] Instructions for patient : B reast Self Exam discussed Last Documented On 4 9:49AM ; [facility] Instructions for patient : B reast Self Exam discussed Last Documented On 3 8:48AM ; [facility] Instructions for patient : B reast Self Exam discussed Last Documented On 2 9:39AM ; [facility] Education and Decision Aids were provided during visit for: STD screening offered and de clined Last Documented On 3 1:19PM ; [facility] Bone Mineral Density Screeni ng guidelines reviewed : will wait and do in 2 years in 2024 (4 years apart) Last Documented On 3 1:28PM ; [facility] Patient Education: Daily surinder cium and vitamin D Last Documented On 3 1:19PM ; [facility] Patient Education: weight be aring exercise Last Documented On 3 1:19PM ; [facility] Colonoscopy screening guidel wally discussed Last Documented On 3 1:19PM ; [facility] STD screening offered and de clined Last Documented On 1 9:09AM ; [facility] Bone Mineral Density Screeni ng guidelines reviewed Last Documented On 1 9:09AM ; [facility] Patient Education: Daily surinder cium and vitamin D Last Documented On 1 9:09AM ; [facility] Patient Education: weight be aring exercise Last Documented On 1 9:09AM ; [facility] Colonoscopy screening guidel wally discussed Last Documented On 1 9:09AM ; [facility] STD screening offered and de clined Last Documented On 9 11:45AM ; [facility] Bone Mineral Density Screeni ng guidelines reviewed : will do after next visit (last in 2014: will do 5 yrs apart) Last Documented On 9 12:02PM ; [facility] Patient Education: Daily surinder cium and vitamin D Last Documented On 9 11:45AM ; [facility] Patient Education: weight be aring exercise Last Documented On 9 11:45AM ; [facility] Colonoscopy screening guidel wally discussed Last Documented On 9 11:45AM ; [facility] STD screening offered and de clined Last Documented On 7 9:09AM ; [facility] Bone Mineral Density Screeni ng guidelines reviewed and we will do again in 2 years Last Documented On 7 9:17AM ; [facility] Patient Education: Daily surinder cium and vitamin D Last Documented On 7 9:09AM ; [facility] Patient Education: weight be aring exercise Last Documented On 7 9:09AM ; [facility] Colonoscopy screening guidel wally discussed Last Documented On 7 9:09AM ; [facility] STD screening offered and de clined Last Documented On 5 10:21AM ; [facility] Bone Mineral Density Screeni ng guidelines reviewed Last Documented On 5 10:21AM ; [facility] Patient Education: Daily surinder cium and vitamin D Last Documented On 5 10:21AM ; [facility] Patient Education: weight be aring exercise Last Documented On 5 10:21AM ; [facility] Colonoscopy screening guidel wally discussed Last Documented On 5 10:21AM ; [facility] STD screening offered and de clined Last Documented On 4 9:49AM ; [facility] Bone Mineral Density Screeni ng guidelines reviewed Last Documented On 4 9:49AM ; [facility] Patient Education: Daily surinder cium and vitamin D Last Documented On 4 9:49AM ; [facility] Patient Education: weight be aring exercise Last Documented On 4 9:49AM ; [facility] Colonoscopy screening guidel wally discussed Last Documented On 4 9:49AM ; [facility] STD screening offered and de clined Last Documented On 3 8:48AM ; [facility] Bone Mineral Density Screeni ng guidelines reviewed Last Documented On 3 8:48AM ; [facility] Patient Education: Daily surinder cium and vitamin D Last Documented On 3 8:48AM ; [facility] Patient Education: weight be aring exercise Last Documented On 3 8:48AM ; [facility] Colonoscopy screening guidel wally discussed Last Documented On 3 8:48AM ; [facility] Bone Mineral Density Screeni ng guidelines reviewed Last Documented On 2 9:39AM ; [facility] Patient Education: Daily surinder cium and vitamin D Last Documented On 2 9:39AM ; [facility] Colonoscopy screening guidel wally discussed Last Documented On 2 9:39AM ; [facility] Assessments Includes: Assessments for all patient encounters Findings Encounter Date Fibrocystic disease of breast WELL WOMAN - ESTABLISHED PT with AMPARO MCCRACKEN MD 04/28/2023 Last Documented On 3 1:39PM ; [facility] NORMAL FEMALE EXAM WELL WOMAN - ESTABLISHED PT w loretta MCCRACKEN MD 04/28/2023 Last Documented On 3 1:39PM ; [facility] Osteopenia WELL WOMAN - ESTABLISHED PT with AMPARO MCCRACKEN MD 04/28/2023 Last Documented On 3 1:39PM ; [facility] Screening Malig. Neoplasm Rectum WELL WO MAN - ESTABLISHED PT with AMPARO MCCRACKEN MD 04/28/2023 Last Documented On 3 1:39PM ; [facility] Fibrocystic disease of breast WELL WOMAN - ESTABLISHED PT with AMPARO MCCRACKEN MD 02/02/2021 Last Documented On 1 9:25AM ; [facility] NORMAL FEMALE EXAM WELL WOMAN - ESTABLISHED PT w ith AMPARO MCCRACKEN MD 02/02/2021 Last Documented On 1 9:25AM ; [facility] Osteopenia WELL WOMAN - ESTABLISHED PT with AMPARO MCCRACKEN MD 02/02/2021 Last Documented On 1 9:25AM ; [facility] Screening Malig. Neoplasm Rectum WELL WO MAN - ESTABLISHED PT with AMPARO MCCRACKEN MD 02/02/2021 Last Documented On 1 9:25AM ; [facility] COVID-19 infection SICK VISIT with [facility] 08/18/2020 Last Documented On 0 4:04PM ; [facility] Fibrocystic disease of breast ANNUAL DEMAND INSPECTOR EXAM wi AMPARO MCCRACKEN MD 01/22/2019 Last Documented On 9 12:02PM ; [facility] History of cervical dysplasia ANNUAL DEMAND INSPECTOR EXAM wi AMPARO MCCRACKEN MD 01/22/2019 Last Documented On 9 12:02PM ; [facility] NORMAL FEMALE EXAM ANNUAL DEMAND INSPECTOR EXAM with AMPARO BULLARD MD 01/22/2019 Last Documented On 9 12:02PM ; [facility] Osteopenia ANNUAL DEMAND INSPECTOR EXAM with AMPARO TORIBIO MD 01/22/2019 Last Documented On 9 12:02PM ; [facility] Screening Malig. Neoplasm Rectum ANNUAL DEMAND INSPECTOR EXAM with AMPARO MCCRACKEN MD 01/22/2019 Last Documented On 9 12:02PM ; [facility] Fibrocystic disease of breast ANNUAL DEMAND INSPECTOR EXAM wi AMPARO MCCRACKEN MD 12/31/2016 Last Documented On 7 9:26AM ; [facility] History of cervical dysplasia ANNUAL DEMAND INSPECTOR EXAM wi th AMPARO MCCRACKEN MD 12/31/2016 Last Documented On 7 9:26AM ; [facility] NORMAL FEMALE EXAM ANNUAL DEMAND INSPECTOR EXAM with AMPARO BULLARD MD 12/31/2016 Last Documented On 7 9:26AM ; [facility] Osteopenia ANNUAL DEMAND INSPECTOR EXAM with AMPARO TORIBIO MD 12/31/2016 Last Documented On 7 9:26AM ; [facility] Screening Malig. Neoplasm Rectum ANNUAL DEMAND INSPECTOR EXAM with AMPARO MCCRACKEN MD 12/31/2016 Last Documented On 7 9:26AM ; [facility] Fibrocystic disease of breast ANNUAL DEMAND INSPECTOR EXAM wi th AMPARO MCCRACKEN MD 12/27/2014 Last Documented On 5 10:44AM ; [facility] NORMAL FEMALE EXAM ANNUAL DEMAND INSPECTOR EXAM with AMPARO BULLARD MD 12/27/2014 Last Documented On 5 10:44AM ; [facility] Screening Malig. Neoplasm Rectum ANNUAL DEMAND INSPECTOR EXAM with AMPARO MCCRACKEN MD 12/27/2014 Last Documented On 5 10:44AM ; [facility] URINARY FREQUENCY ANNUAL DEMAND INSPECTOR EXAM with AMPARO BENSON MD 12/27/2014 Last Documented On 5 10:44AM ; [facility] Breast fibrocystic disease ANNUAL DEMAND INSPECTOR EXAM with AMPARO MCCRACKEN MD 12/24/2013 Last Documented On 4 10:01AM ; [facility] NORMAL FEMALE EXAM ANNUAL DEMAND INSPECTOR EXAM with AMPARO BULLARD MD 12/24/2013 Last Documented On 4 10:01AM ; [facility] Screening Malig. Neoplasm Rectum ANNUAL DEMAND INSPECTOR EXAM with AMPARO MCCRACKEN MD 12/24/2013 Last Documented On 4 10:01AM ; [facility] Breast fibrocystic disease ANNUAL DEMAND INSPECTOR EXAM with APMARO MCCRACKEN MD 12/22/2012 Last Documented On 3 9:13AM ; [facility] NORMAL FEMALE EXAM ANNUAL DEMAND INSPECTOR EXAM with AMPARO BULLARD MD 12/22/2012 Last Documented On 3 9:13AM ; [facility] Screening Malig. Neoplasm Rectum ANNUAL DEMAND INSPECTOR EXAM with AMPARO MCCRACKEN MD 12/22/2012 Last Documented On 3 9:13AM ; [facility] Breast fibrocystic disease NEW TELEVISION WRITER EXAM with AMPARO MCCRACKEN MD 12/20/2011 Last Documented On 2 9:52AM ; [facility] NORMAL FEMALE EXAM NEW TELEVISION WRITER EXAM with AMPARO TORIBIO MD 12/20/2011 Last Documented On 2 9:52AM ; [facility] Screening Malig. Neoplasm Rectum NEW TELEVISION WRITER EXAM wi th AMPARO MCCRACKEN MD 12/20/2011 Last Documented On 2 9:52AM ; [facility] Instructions Includes: Instructions for all patient encounters Instructions to patient Instructions for patient : B reast Self Exam discussed Last Documented On 3 1:19PM ; [facility] Instructions for patient : B reast Self Exam discussed Last Documented On 1 9:09AM ; [facility] Instructions for patient Last Documented On 0 3:06PM ; [facility] Instructions for patient : B reast Self Exam discussed Last Documented On 9 11:45AM ; [facility] Instructions for patient : B reast Self Exam discussed Last Documented On 7 9:09AM ; [facility] Instructions for patient : B reast Self Exam discussed Last Documented On 5 10:21AM ; [facility] Instructions for patient : B reast Self Exam discussed Last Documented On 4 9:49AM ; [facility] Instructions for patient : B reast Self Exam discussed Last Documented On 3 8:48AM ; [facility] Instructions for patient : B reast Self Exam discussed Last Documented On 2 9:39AM ; [facility] Education and Decision Aids were provided during visit for: STD screening offered and de clined Last Documented On 3 1:19PM ; [facility] Bone Mineral Density Screeni ng guidelines reviewed : will wait and do in 2 years in 2024 (4 years apart) Last Documented On 3 1:28PM ; [facility] Patient Education: Daily surinder cium and vitamin D Last Documented On 3 1:19PM ; [facility] Patient Education: weight be aring exercise Last Documented On 3 1:19PM ; [facility] Colonoscopy screening guidel wally discussed Last Documented On 3 1:19PM ; [facility] STD screening offered and de clined Last Documented On 1 9:09AM ; [facility] Bone Mineral Density Screeni ng guidelines reviewed Last Documented On 1 9:09AM ; [facility] Patient Education: Daily surinder cium and vitamin D Last Documented On 1 9:09AM ; [facility] Patient Education: weight be aring exercise Last Documented On 1 9:09AM ; [facility] Colonoscopy screening guidel wally discussed Last Documented On 1 9:09AM ; [facility] STD screening offered and de clined Last Documented On 9 11:45AM ; [facility] Bone Mineral Density Screeni ng guidelines reviewed : will do after next visit (last in 2014: will do 5 yrs apart) Last Documented On 9 12:02PM ; [facility] Patient Education: Daily surinder cium and vitamin D Last Documented On 9 11:45AM ; [facility] Patient Education: weight be aring exercise Last Documented On 9 11:45AM ; [facility] Colonoscopy screening guidel wally discussed Last Documented On 9 11:45AM ; [facility] STD screening offered and de clined Last Documented On 7 9:09AM ; [facility] Bone Mineral Density Screeni ng guidelines reviewed and we will do again in 2 years Last Documented On 7 9:17AM ; [facility] Patient Education: Daily surinder cium and vitamin D Last Documented On 7 9:09AM ; [facility] Patient Education: weight be aring exercise Last Documented On 7 9:09AM ; [facility] Colonoscopy screening guidel wally discussed Last Documented On 7 9:09AM ; [facility] STD screening offered and de clined Last Documented On 5 10:21AM ; [facility] Bone Mineral Density Screeni ng guidelines reviewed Last Documented On 5 10:21AM ; [facility] Patient Education: Daily surinder cium and vitamin D Last Documented On 5 10:21AM ; [facility] Patient Education: weight be aring exercise Last Documented On 5 10:21AM ; [facility] Colonoscopy screening guidel wally discussed Last Documented On 5 10:21AM ; [facility] STD screening offered and de clined Last Documented On 4 9:49AM ; [facility] Bone Mineral Density Screeni ng guidelines reviewed Last Documented On 4 9:49AM ; [facility] Patient Education: Daily surinder cium and vitamin D Last Documented On 4 9:49AM ; [facility] Patient Education: weight be aring exercise Last Documented On 4 9:49AM ; [facility] Colonoscopy screening guidel wally discussed Last Documented On 4 9:49AM ; [facility] STD screening offered and de clined Last Documented On 3 8:48AM ; [facility] Bone Mineral Density Screeni ng guidelines reviewed Last Documented On 3 8:48AM ; [facility] Patient Education: Daily surinder cium and vitamin D Last Documented On 3 8:48AM ; [facility] Patient Education: weight be aring exercise Last Documented On 3 8:48AM ; [facility] Colonoscopy screening guidel wally discussed Last Documented On 3 8:48AM ; [facility] Bone Mineral Density Screeni ng guidelines reviewed Last Documented On 2 9:39AM ; [facility] Patient Education: Daily surinder cium and vitamin D Last Documented On 2 9:39AM ; [facility] Colonoscopy screening guidel wally discussed Last Documented On 2 9:39AM ; [facility] Medical Equipment - Implanted Devices Includes: Current and historical Devices No Medical Equipment Recorded Medications Includes: Current and historical Medications Current Medications (continue as prescribed) [facility] Vitamin D3 25 MCG (1000 UT) Oral Tablet Chewable 0 04/28/2023 Provider: Diagnosis: Last Documented On 04/28/2023 1:06PM By James VELASQUEZ ; [facility] Calcium 600 MG Oral Tablet 04/28/2023 Provider: Diagnosis: Last Documented On 04/28/2023 1:06PM By James VELASQUEZ ; [facility] Lisinopril-hydroCHLOROthiazide 20-25MG Oral Tablet Provider: Diagnosis: one tablet Last Documented On 9 11:17AM By CAROLINA VELASQUEZ ; [facility] Pravastatin Sodium 20MG Oral Tablet 01/22/2019 Provi cesario: Diagnosis: once day Last Documented On 9 11:17AM By CAROLINA VELASQUEZ ; [facility] PriLOSEC 40 MG OR CPDR 12/24/2013 Provider: Diagnosis: Last Documented On 4 9:43AM By LUCIE OCHOA LPN ; [facility] QC Womens Daily Multivitamin OR TABS 12/24/2013 Prov ider: Diagnosis: Last Documented On 4 9:43AM By LUCIE OCHOA LPN ; [facility] Past Medications on file Lotensin HCT 10-12.5 MG OR TABS 12/22/2012 - 9 Provider: Diagnosis: 1/2 tab Last Documented On 9 11:17AM By CAROLINA VELASQUEZ ; [facility] Carisoprodol 350 MG OR TABS 12/01/2012 - 12/24/2013 Pr ovider: Diagnosis: Last Documented On 4 9:42AM By LUCIE OCHOA LPN ; [facility] Piroxicam 20 MG OR CAPS 11/23/2012 - 12/24/2013 Provid er: Diagnosis: Last Documented On 4 9:42AM By LUCIE OCHOA LPN ; [facility] vicodin 5/500mg OP TABS 11/23/2012 - 12/24/2013 Provid er: Diagnosis: Last Documented On 4 9:43AM By LUCIE OCHOA LPN ; [facility] Feldene 20 MG OR CAPS 12/20/2011 - 12/22/2012 Provider : Diagnosis: Last Documented On 12/22/2012 8:37AM By QAMAR VELASQUEZ ; [facility] Medications Administered Includes: Administered Medications in patient's chart No Administered Medications Recorded Results Includes: Results from 10/14/2023 through 10/14/2024 No Results Recorded For Specified Dates History of Present Illness History of Present Illness not supported for this document type No History of Present Illness Recorded Social History Description Last Updated Exercising regularly 02/02/2021 Last Documented On 1 9:25AM ; [facility] Former smoker 02/02/2021 Last Documented On 1 9:25AM ; [facility] Not using alcohol 01/22/2019 Last Documented On 9 12:02PM ; [facility] Not using drugs 01/22/2019 Last Documented On 9 12:02PM ; [facility] Sexually active with 1 partners in the l ast year 12/31/2016 Last Documented On 7 9:26AM ; [facility] Smoking status : Former smoker quit at a ge 25 after smoking 10 years 12/31/2016 Last Documented On 7 9:26AM ; [facility] Social history unchanged 12/24/2013 Last Documented On 4 10:01AM ; [facility] 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 Last Documented On 2 9:52AM ; [facility] Marital history 12/20/2011 Last Documented On 2 9:52AM ; [facility] Non-smoker 12/20/2011 Last Documented On 2 9:52AM ; [facility] Procedures and Surgical History Surgical History Last Updated Surgical / procedural histor y oct or november 2020 skin cancer removed right upper leg and right shoulder 02/02/2021 Last Documented On 1 9:25AM ; [facility] History of Loop electrode excision of ce rvix (LEEP) 201102/02/2021 Last Documented On 1 9:25AM ; [facility] Previous colposcopy 01/22/2019 Last Documented On 9 12:02PM ; [facility] History of hysterectomy 12/31/2016 Last Documented On 7 9:26AM ; [facility] Surgical history unchanged 12/24/2013 Last Documented On 4 10:01AM ; [facility] History of total abdominal h ysterectomy RUBI/BSO at [facility] on 04/16/2012 for VIRGIL I in LEEP cone x 2 with cx stenosis with no residual dysplasia in the hyst 12/22/2012 Last Documented On 3 9:13AM ; [facility] Bilateral salpingo-oophorectomy TCK APR 2010 12/20/2011 Last Documented On 2 9:52AM ; [facility] Medical History Includes: Medical History in patient's chart Description Last Updated Last mammogram date: 10/18/2022 3 Last Documented On 3 1:39PM ; [facility] Last pap smear date 02/02/2021 04/28/2023 Last Documented On 3 1:39PM ; [facility] History of colonoscopy fiberoptic was pe rformed 01/24/2021 04/28/2023 Last Documented On 3 1:39PM ; [facility] History of screening mammogram was perfo rmed 10/18/2022 04/28/2023 Last Documented On 3 1:39PM ; [facility] A colonoscopy was performed 01/24/21; Dr Crook per pt 02/02/2021 Last Documented On 1 9:25AM ; [facility] Result: abnormal 02/02/2021 Last Documented On 1 9:25AM ; [facility] Patient recently had a dexa scan 01/06/[address] [facility] with T-scores of 3.9 in the spine, -1.2 in the hip neck, and 0.7 in the total hip 01/22/2019 Last Documented On 9 12:02PM ; [facility] Status post tubal ligation 12/31/2016 Last Documented On 7 9:26AM ; [facility] Sexually active 12/27/2014 Last Documented On 5 10:44AM ; [facility] History of a DEXA of the lateral lumbar spine was performed 02/14/2012 12/27/2014 Last Documented On 5 10:44AM ; [facility] History of Pap smear done 12/24/201312/08 Last Documented On 5 10:44AM ; [facility] Recent change in medical his tory PT. HAD SKIN CA REMOVED X2--- in the ~R/L THUMB SURGERY----2008 ~11/2013 Dr Scales dxed pt by EGD with hiatal hernia and stomach ulcers 12/24/2013 Last Documented On 4 10:01AM ; [facility] History of benign essential hypertension 12/22/2012 Last Documented On 3 9:13AM ; [facility] History of menopause 12/22/2012 Last Documented On 3 9:13AM ; [facility] LMP: 2000 12/22/2012 Last Documented On 3 9:13AM ; [facility] Primary Care Provider: Dr Ling 013 Last Documented On 3 9:13AM ; [facility] Result: normal 12/22/2012 Last Documented On 3 9:13AM ; [facility] Result: normal 12/22/2012 Last Documented On 3 9:13AM ; [facility] PRIMARY CARE PROVIDER : is Dr Ling Last Documented On 2 9:52AM ; [facility] Vaginal delivery 4 12/20/2011 Last Documented On 2 9:52AM ; [facility] Aborta 1 12/20/2011 Last Documented On 2 9:52AM ; [facility] 5 12/20/2011 Last Documented On 2 9:52AM ; [facility] Para 4 12/20/2011 Last Documented On 2 9:52AM ; [facility] Family History Includes: Family History in patient's chart Description Last Updated Daughter's history of breast cancer Diagnosed in 2020 and had treatments done and had a lumpectomy done 04/28/2023 Last Documented On 3 1:39PM ; [facility] Family history of malignant female breast neoplasm mat AUNT--- in her 60's ~Daughter- breast cancer 2020- september- chemo- last radiation will be 02/06/21- then radiation and surgery 02/02/2021 Last Documented On 1 9:25AM ; [facility] Maternal aunt's history of m alignant female breast neoplasm mat AUNT--- in her 60's 12/31/2016 Last Documented On 7 9:26AM ; [facility] Maternal history of malignant neoplasm o f the ovary MOM at 74 y old 12/31/2016 Last Documented On 7 9:26AM ; [facility] Paternal uncle's history of malignant neoplasm of large intestine pat UNCLE in his 50's 12/31/2016 Last Documented On 7 9:26AM ; [facility] Diabetes mellitus Paternal aunt and uncl e 12/27/2014 Last Documented On 5 10:44AM ; [facility] Family history of heart disease FATHER/B ROTHERS 12/27/2014 Last Documented On 5 10:44AM ; [facility] Family history of malignant neoplasm of the large intestine pat UNCLE in his 50's 12/24/2013 Last Documented On 4 10:01AM ; [facility] Family history of malignant neoplasm of the ovary MOM at 74 y old 12/24/2013 Last Documented On 4 10:01AM ; [facility] Family history unchanged 12/24/2013 Last Documented On 4 10:01AM ; [facility] No family history of diabetes mellitus 0 12/20/2011 Last Documented On 2 9:52AM ; [facility] No family history of uterine cancer 12/07 Last Documented On 2 9:52AM ; [facility] Family history of hypertension PATIENT 0 12/20/2011 Last Documented On 2 9:52AM ; [facility] Review of Systems Review of Systems not supported for this document type No Review of Systems Recorded Mental Status Description No anxiety Functional Status No Functional Status Recorded Physical Exam Physical Exam not supported for this document type No Physical Exam Recorded Allergies Includes: Active, inactive, and resolved Allergies Substance Type Reaction Onset Date Resolved Date Statu s Codeine Allergy Nausea, Vomiting , Diarrhea / Diarrheal disorder 12/20/2011 Active Last Documented On 3 1:06PM ; [facility] Insurance Includes: Active Insurance Policies Plan Name Member ID Group # Subscriber Relationship Effect mary alice Dates 1 - MEDICARE PART A CLAIMS/NGS [id number] [employer] 2 - [employer] SUPPLEMENT [id number] PLAN F DOMINIQUE [employer] Clinical Notes Includes: Signed Clinical Notes starting from 09/27/2022 No Clinical Notes Recorded
--- OUTSIDE RECORDS SUMMARY | 2024-10-14 00:33 | XMS_ITS | Encounter Summary ---
Author Organization [facility] Address [address] [place] [address] Phone Care Team Providers Care Grocery Clerk Name Role Phone Bear Ling MD Primary Care Provider [phone] Domingo Wolf MD Unavailable [phone] Katy Norton MD, Bruce T. 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[employer] Gender Identity Not on file Sexual Orientation Not on file documented as of this encounter Plan of Treatment Not on file documented as of this encounter Procedures Procedure Name Priority Date/Time Associated Diagnosis Comments SCAN - RADIOLOGY/IMAGING 10/18/2022 documented in this encounter Results * SCAN - RADIOLOGY/IMAGING (10/18/2022) Anatomical Region Laterality Modality Other us Provider Scanning Final Result documented in this encounter Visit Diagnoses Not on filedocumented in this encounter Care Teams Grocery Clerk Relationship Specialty Start Date End Date Bear Ling MD [address] [place] [id number] PCP - General 11/01/10 Domingo Wolf MD [address] [place] [id number] Doctor Of Podiatric Medicine Obstetrics and Gynecology 08/12/18 Dereck Burns Jr., MD [address] [place] [id number] Surgeon Orthopedic Surgery 08/12/18 [place] [address] [place] [id number] Consulting Physician Neurology 03/22/21 documented as of this encounter
--- OUTSIDE RECORDS SUMMARY | 2024-10-14 00:33 | XMS_ITS | Referral Summary ---
Author Organization [facility] [address] Address [address] [place] [address] Phone Care Team Providers Care Production Technologist Name Role Phone Bear Ling MD Primary Care Provider + [phone] Domingo Wolf MD Unavailable [phone] Katy Norton MD, Dereck Lemra Unavailable [phone] Eron Min MD Unavailable Encounters Date Type Department Care Team Description 10/12/2024 8:10 AM INSIDE SALES SUPERVISOR [facility] [address] [facility] [address] [place] [address] Encounter for Medicare annual wellness exam 09/21/2024 10:45 AM INSIDE SALES SUPERVISOR [facility] [address] [facility] [address] [place] [id number] Eron Min MD WENDY (obstructive sleep apnea) (Primary Dx); Hypersomnia with sleep apnea; Overweight (BMI 25.0-29.9) 08/09/2024 Telephone [facility] [address] [place] [address] Bear Ling MD Request For Order(s) 08/04/2024 Telephone [facility] [address] [place] [address] Bear Ling MD Weakness - Generalized 07/30/2024 Telephone [facility] [address] [place] [address] Bear Ling MD Urinary Problem 07/19/2024 Telephone [facility] [address] [place] [address] Jose Pacheco RN 07/16/2024 10:00 AM INSIDE SALES SUPERVISOR Ancillary Procedure [facility] [address] [place] [address] Mass of upper inner quadrant of right breast 07/16/2024 9:30 AM INSIDE SALES SUPERVISOR Ancillary Procedure [facility] [address] [place] [address] Mass of upper inner quadrant of right breast from Last 3 Months Allergies Active Allergy Reactions Criticality Noted Date Comments Codeine Nausea Only,Diarrhea,Nausea & Vomiting Low 12/20/2011 Medications cholecalciferol (VITAMIN D3) 1,000 unit capsule take 1 Tablet by Oral route once 0 0 12/21/19 16 Active multivitamin capsule QC Womens Daily Multivitamin Oral Tablet QTY: 0 tablet Days: 0 Refills: 0 Written: 12/24/13 Patient Instructions: 12/25/19 14 Active calcium carbonate (CALCIUM 600 ORAL) Take by mouth Active apixaban (ELIQUIS) 5 mg tablet Take 1 tablet (5 mg total) by mouth 2 (two) times a day 28 tablet 03/29/20 24 Active lisinopril-hydr oCHLOROthiazide (ZESTORETIC) 20-25 mg per tablet TAKE 1 TABLET BY MOUTH EVERY DAY 90 tablet 1 04/30/20 24 Active pravastatin (PRAVACHOL) 20 mg tablet TAKE 1 TABLET BY MOUTH EVERY DAY 90 tablet 1 05/03/20 24 Active omeprazole (PriLOSEC) 20 mg capsule TAKE 1 CAPSULE BY MOUTH EVERY DAY 90 capsule 1 05/03/20 24 Active Additional Information Patient not taking.Reported on 09/21/2024 metoprolol tartrate (LOPRESSOR) 25 mg immediate release tablet TAKE 0.5 TABLETS BY MOUTH 2 TIMES DAILY FOR 90 DAYS. 90 tablet 3 05/06/20 24 Active clopidogreL (PLAVIX) 75 mg tablet Take 1 tablet (75 mg total) by mouth daily Active famotidine (PEPCID) 20 mg tabletIndicatio ns:Gastroesopha geal reflux disease without esophagitis TAKE 1 TABLET BY MOUTH EVERY EVENING. INDICATIONS: GASTROESOPHAGEAL REFLUX 30 tablet 2 09/06/[address] (PROTONIX) 40 mg EC tablet TAKE 1 TABLET BY MOUTH DAILY FOR 30 DAYS. INDICATIONS: PEPTIC ULCER 30 tablet 2 09/06/20 24 Active sucralfate (CARAFATE) 1 gram tablet TAKE 1 TABLET BY MOUTH EVERY 6 HOURS 120 tablet 2 09/06/20 24 Active Active Problems Problem Noted Date Diagnosed Date Mass of upper inner quadrant of right breast Assessment & Plan (07/07/2024 8:35 AM CDT): SUSPICION IS LOW LAST MAMMOGRAM IN 2023 NEG THIS RIGHT ABOVE THE BRUISE ( PT ON PLAVIX AND ASA ) ARRANGE AN US OF THE RIGHT BREAST) Encounter for Medicare annual wellness exam 03/09 Assessment & Plan (03/29/2024 5:59 PM CDT): PT WITH NEW ONSET A FIB STARTED ON ELIQUIS SAMPLES WERE GIVEN TODAY / SHE WILL HAVE SYLVESTER DONE FOLLOWED BY A POSSIBLE WATCHMAN'S PROCEDURE. RATE IS CONTROLLED ON BETA MITRA Colitis with bleeding now resolved ok to start eliquis Wendy on cpap and using her cpap machine nightly Essential hypertnesion goal bp is 130/80 or under Mixed hyperlipimdeia goal ldl is under 100 No opioid usage No recent falls Labs were reviewed today Colitis 03/09/2024 Assessment & Plan (03/09/2024 5:24 PM CDT): RECTAL BLEEDING HAS STOPPED SHE HAS FINISHED HER ABX SHE IS DUE FOR A COLONSCOPY REFERRAL SENT New onset atrial fibrillation ([facility]) 03/09/20 Assessment & Plan (03/09/2024 5:25 PM CDT): RATE IS CONTROLLED ON BETA BLCOKER NO ANTI COGUALTION BECAUSE OF GI BLEED 2 D ECHO REVIEWED F/U CARDIOLOGY APPT ALREADY MADE AWAIT RESULTS OF 14 DAYS HOLTER Moderate obstructive sleep apnea 10/27/2020 Rectal prolapse 10/26/2019 Gastroesophageal reflux disease without esophagi tis 08/12/2018 Mixed hyperlipidemia 01/22/2018 Essential hypertension 01/22/2014 Overview (12/14/2016): Hypertension Low back pain 01/22/2014 Overview (12/14/2016): Low back pain Immunizations Name Administration Dates Next Due Influenza Virus Vaccine Trivalent Mdv 06/25/2018 Influenza, Quadrivalent, Hig h Dose, Preservative Free, Intrr 06/20/2023,06/18/2022,06/22/2021 Influenza, Trivalent, Adjuva nted, Intramuscular 06/26/2018 Influenza, Trivalent, High D ose, Split, Preservative Free, Intramuscular 06/22/2024,06/30/2020,07/03/2019,06/14,07/05/2016,06/09/2015 Influenza, Trivalent, IM (MDV) 06/10/2014,2012 Influenza, Unspecified 06/26/2018,06/14/2017 Pneumococcal Conjugate PCV 13 02/09/2016 Pneumococcal Polysaccharide PPV23 09/12/2020 RSV Vaccine, Pref, Recombina nt, Subunit, Adjuvanted, PF, IM (Arexvy) 10/07/2023 TD Preservative Free 12/28/2015 Tdap 06/28/2011 ZOSTER LIVE 02/09/2016 ZOSTER Recombinant 09/16/2023,04/29/2023 Social History Tobacco Use Types Packs/Day Years Used Date Smoking Tobacco: Former Smokeless Tobacco: Never Tobacco Cessation:Counseling Given: Not Answered Alcohol Use Standard Drinks/Week Comments Not Currently [...] points, staff should administer the PHQ-9) 0 03/29/2024 Comments No Sex and Gender Information Value Date Recorded Sex Assigned at Not on file Legal Sex Female 8:51 AM INSIDE SALES SUPERVISOR Gender Identity Not on file Sexual Orientation Not on file Last Filed Vital Signs Vital Sign Reading Time Taken Comments Blood Pressure 92/46 07/07/2024 8:17 AM CDT Pulse 53 07/07/2024 8:17 AM CDT Temperature 36.3 C (97.3 F) 07/07/2024 8:17 AM CDT Respiratory Rate 18 07/07/2024 8:17 AM CDT Oxygen Saturation 95% 07/07/2024 8:17 AM CDT Inhaled Oxygen Concentration - - Weight 89.3 kg (196 lb 12.8 oz) 07/07/2024 8:17 AM CDT Height 177.8 cm (5' 10 ) 07/07/2024 8:17 AM CDT Body Mass Index 28.24 07/07/2024 8:17 AM CDT Plan of Treatment Not on file Medical Devices Implanted Type Area Business Services Manager Device Identifier Shelf Expiration Date Model / Serial / Lot Screws,Wire In Right Knee Knee Procedures Procedure Name Priority Date/Time Associated Diagnosis Comments EGFR Routine 10/12/2024 8:15 AM INSIDE SALES SUPERVISOR Encounter for Medicare annual wellness exam DIFFERENTIAL AUTO Routine 10/12/2024 8:1 5 AM INSIDE SALES SUPERVISOR Encounter for Medicare annual wellness exam LIPID PANEL Routine 10/12/2024 8:15 AM INSIDE SALES SUPERVISOR Encounter for Medicare annual wellness exam COMPREHENSIVE METABOLIC PANEL Routine 10/12/2024 8:15 AM INSIDE SALES SUPERVISOR Encounter for Medicare annual wellness exam CBC WITH AUTO DIFFERENTIAL Routine 10/12/2024 8:15 AM INSIDE SALES SUPERVISOR Encounter for Medicare annual wellness exam US BREAST RIGHT LIMITED Schedule Routine, Read Routine (OP Routine) 07/16/2024 10:02 AM INSIDE SALES SUPERVISOR Mass of upper inner quadrant of right breast DIAGNOSTIC MAMMOGRAM RIGHT W EAN Schedule Routine, Read Routine (OP Routine) 07/16/2024 9:33 AM INSIDE SALES SUPERVISOR Mass of upper inner quadrant of right breast from Last 3 Months Results * eGFR (10/12/2024 8:15 AM INSIDE SALES SUPERVISOR) eGFR 68 >=60 mL/min/1. 73 m2 Comment: Interpretive Data Reference Interval Normal >/= 90 mL/min/1.73m2 Mildly decreased* 60 - 89 mL/min/1.73m2 Mildly to moderately decreased 45 - 59 mL/min/1.73m2 Moderately to severely decreased 30 - 44 mL/min/1.73m2 Severely decreased 15 - 29 mL/min/1.73m2 Kidney Failure < 15 mL/min/1.73m2 *Relative to young adult level Estimated glomerular filtration rate is determined by the 2020 CKD-EPI equation recommended by the National Kidney Foundation (A Unifying Approach to GFR Estimation: Recommendations of the NKF-ASK Task Force on Reassessing the Inclusion of Race in Diagnosing Kidney Disease, JASN 2020). The CKD-EPI equation should not be used for patients with unstable renal function and has not been validated in children and those over 70. Current interpretive data was last reviewed 2021. Testing performed by: [address] [address] Blood 10/12/2024 8:15 AM INSIDE SALES SUPERVISOR 10/12/2024 12:21 PM INSIDE SALES SUPERVISOR us Bear Ling MD LAB BLOOD ORDERABLES Final Result [address] Department [place] [address] * Differential, auto (10/12/2024 8:15 AM INSIDE SALES SUPERVISOR) Neutrophil abs 3.4 1.5 - 6.5 K/cumm Comment:Testing performed by : [address] [address] Imm gran abs 0.0 0.0 - 0.1 K/cumm ALLY Comment:Testing performed by : [address] [address] Lymphocyte abs 1.3 0.8 - 3.3 K/cumm ALLY Comment:Testing performed by : [address] [address] Monocyte abs 0.6 0.2 - 0.8 K/cumm CERNER CH Comment:Testing performed by : [address] [address] Eosinophil abs 0.0 0.0 - 0.5 K/cumm CERNER CH Comment:Testing performed by : [address] [address] Basophil abs 0.0 0.0 - 0.1 K/cumm CERNER CH Comment:Testing performed by : [address] [address] Neutrophil pct 63.4 % CERNER CH Comment: Interpretive Data Percent cell count reference ranges are not reported, since discordance with absolute values may lead to misinterpretation of CBC data. Current Interpretive Data was last revised on 2017. Testing performed by: [address] [address] Imm gran pct 0.2 % CERNER CH Comment: Interpretive Data Percent cell count reference ranges are not reported, since discordance with absolute values may lead to misinterpretation of CBC data. Current Interpretive Data was last revised on 2017. Testing performed by: [address] [address] Lymphocyte pct 24.7 % CERNER CH Comment: Interpretive Data Percent cell count reference ranges are not reported, since discordance with absolute values may lead to misinterpretation of CBC data. Current Interpretive Data was last revised on 2017. Testing performed by: [address] [address] Monocyte pct 11.1 % CERNER CH Comment: Interpretive Data Percent cell count reference ranges are not reported, since discordance with absolute values may lead to misinterpretation of CBC data. Current Interpretive Data was last revised on 2017. Testing performed by: [address] [address] Eosinophil pct 0.0 % CERNER CH Comment: Interpretive Data Percent cell count reference ranges are not reported, since discordance with absolute values may lead to misinterpretation of CBC data. Current Interpretive Data was last revised on 2017. Testing performed by: [address] [address] Basophil pct 0.6 % CERNER Comment: Interpretive Data Percent cell count reference ranges are not reported, since discordance with absolute values may lead to misinterpretation of CBC data. Current Interpretive Data was last revised on 2017. Testing performed by: [address] [address] Blood 10/12/2024 8:15 AM INSIDE SALES SUPERVISOR 10/12/2024 12:13 PM INSIDE SALES SUPERVISOR us Bear Ling MD LAB BLOOD ORDERABLES Final Result [address] Department [place] [address] * (ABNORMAL) CBC with auto differential (10/12/2024 8:15 AM INSIDE SALES SUPERVISOR) WBC 5.3 3.8 - 9.9 K/cumm Comment:Testing performed by : [address] [address] Hgb 11.6(L) 11.9 - 15.5 g/dL CERNER Comment:Testing performed by : [address], [address] Hct 36.3 35.6 - 45.5 % CERNER Comment:Testing performed by : [address] [address] Plt 266 150 - 400 K/cumm CERNER Comment:Testing performed by : [address] [address] MPV 9.8 9.1 - 12.3 fL CERNER Comment:Testing performed by : [address], [address] RBC 3.96 3.90 - 5.20 M/cumm CERNER CH Comment:Testing performed by : [address], [address] MCV 91.7 81.3 - 96.4 fL CERNER CH Comment:Testing performed by : [address], [address] MCH 29.3 27.1 - 33.3 pg ALLY Comment:Testing performed by : [facility], [address] [place] [address]., [address] MCHC 32.0(L) 32.3 - 35.7 g/dL ALLY Comment:Testing performed by : [facility], [address] [place] [address], [address] RDW CV 13.2 11.1 - 14.9 % ALLY Comment:Testing performed by : [facility], [address] [place] [address], [address] RDW SD 44.3 35.7 - 48.1 fL ALLY Comment:Testing performed by : [address], [address] NRBC abs 0.00 0.00 - 0.01 K/cumm ALLY Comment:Testing performed by : [address], [address] Blood 10/12/2024 8:15 AM INSIDE SALES SUPERVISOR 10/12/2024 12:13 PM INSIDE SALES SUPERVISOR us Bear Ling MD LAB BLOOD ORDERABLES Final Result [address] Department [place] [address] * Lipid panel (10/12/2024 8:15 AM INSIDE SALES SUPERVISOR) Cholesterol 152 30 - 199 mg/dL Comment: Interpretive Data Ages < or = 19 years Acceptable: <170 mg/dL Borderline high: 170-199 mg/dL High: >or= 200 mg/dL Ages > or = 20 years Desirable: <200 mg/dL Borderline high: 200-239 mg/dL High: >or= 240 mg/dL Literature References: 1. Expert Panel on Integrated Guidelines for Cardiovascular Health and Risk Reduction in Children and Adolescents. Pediatrics 2011;128:S213 2. NCEP Expert Panel. Circulation 2004;110:227 Current Interpretive Data was last revised on 2018. Testing performed by: [address], [address] Triglycerides 104 <=149 mg/dL ALLY KESSLER Comment: Interpretive Data Ages < or = 9 years Acceptable: <75 mg/dL Borderline high: 75-99 mg/dL High: >or= 100 mg/dL Ages 10 to 20 years Acceptable: <90 mg/dL Borderline high: 90-129 mg/dL High: >or= 130 mg/dL Ages > or = 20 years Desirable: <150 mg/dL Borderline high: 150-199 mg/dL High: 200-499 mg/dL Very high: >or= 499 mg/dL Literature References: 1. Expert Panel on Integrated Guidelines for Cardiovascular Health and Risk Reduction in Children and Adolescents. Pediatrics 2011;128:S213 2. NCEP Expert Panel. Circulation 2004;110:227 Current Interpretive Data was last revised on 2018. Testing performed by: [facility], [address] [place] [address]., [address] HDL 46 >=40 mg/dL ALLY Comment: Interpretive Data Ages < or = 19 years Acceptable: >45 mg/dL Borderline low: 40-45 mg/dL Low: <40 mg/dL Ages > or = 20 years Desirable: >or= 60 mg/dL Low: <40 mg/dL Literature References: 1. Expert Panel on Integrated Guidelines for Cardiovascular Health and Risk Reduction in Children and Adolescents. Pediatrics 2011;128:S213 2. NCEP Expert Panel. Circulation 2004;110:227 Current Interpretive Data was last revised on 2018. Testing performed by: [facility], [address] [place] [address]., [address] LDL, calculated 87 <=129 mg/dL ALLY Comment: Interpretive Data Ages < or = 19 years Acceptable: <110 mg/dL Borderline high: 110-129 mg/dL High: >or= 130 mg/dL Ages > or = 20 years Optimal: <100 mg/dL Near optimal: 100-129 mg/dL Borderline high: 130-159 mg/dL High: >160 mg/dL Calculated using the Pancho LDL-C estimating equation. This equation was implemented on 2024. Prior to this date LDL-C was estimated using the Friedewald equation. Literature References: 1. Expert Panel on Integrated Guidelines for Cardiovascular Health and Risk Reduction in Children and Adolescents. Pediatrics 2011;128:S213 2. NCEP Expert Panel. Circulation 2004;110:227 3. Pancho Duncan et al. HELENA Cardiol. 2020 May 1;5(5):540-548. doi: 10.1001/jamacardio.2020.0013 Current Interpretive Data was last revised on 2024. Testing performed by: [address] [address] Non-HDL Cholesterol 106 mg/dL ALLY Comment: Interpretive Data Ages < or = 19 years Acceptable: <120 mg/dL Borderline high: 120-144 mg/dL High: >145 mg/dL Ages > or = 20 years When triglycerides are >200 mg/dL, Non-HDL cholesterol is a secondary target of therapy with treatment goals that are 30 mg/dL greater than the LDL cholesterol target. Literature References: 1. Expert Panel on Integrated Guidelines for Cardiovascular Health and Risk Reduction in Children and Adolescents. Pediatrics 2011;128:S213 2. NCEP Expert Panel. Circulation 2004;110:227 Current Interpretive Data was last revised on 2018. Testing performed by: [address] [address] Chol/HDL ratio 3 ALLY Comment:Testing performed by : [address] [address] Blood 10/12/2024 8:15 AM INSIDE SALES SUPERVISOR 10/12/2024 12:13 PM INSIDE SALES SUPERVISOR Bear Ling MD LAB BLOOD ORDERABLES Final Result ALLY [address] Department [place] [address] * Comprehensive metabolic panel (10/12/2024 8:15 AM INSIDE SALES SUPERVISOR) Sodium 138 135 - 145 mmol/L Comment:Testing performed by : [address] [address] Potassium, pl 4.4 3.3 - 4.9 mmol/L ALLY Comment:Testing performed by : [address] [address] Chloride 101 97 - 110 mmol/L ALLY Comment:Testing performed by : [address] [address] CO2 26 22 - 32 mmol/L CERNER CH Comment:Testing performed by : [address] [address] Anion gap 11 2 - 15 mmol/L CERNER CH Comment:Testing performed by : [facility], [address] [place] [address], [address] BUN 16 6 - 25 mg/dL CERNER CH Comment:Testing performed by : [address], [address] Creatinine 0.89 0.60 - 1.10 mg/dL CERNER CH Comment:Testing performed by : [address], [address] Glucose 112 70 - 199 mg/dL CERNER CH Comment: Interpretive Data Fasting glucose >/= 126 mg/dl is diagnostic for diabetes. Fasting is defined as no caloric intake for at least 8 hours. Fasting glucose between 100 mg/dl to 125 mg/dl is diagnostic of prediabetes. In a patient with classic symptoms of hyperglycemia or hyperglycemic crisis, a random glucose >/= 200 mg/dl is diagnostic for diabetes. In the absence of unequivocal hyperglycemia, results should be confirmed by repeat testing. The classification and Diagnosis of Diabetes Diabetes Care 2021; 46: S19-S40. Current interpretive data was last revised 2022. Testing performed by: [address], [address] Calcium 9.9 8.5 - 10.3 mg/dL CERNER CH Comment:Testing performed by : [address], [address] Bilirubin, total 0.2 0.1 - 1.2 mg/dL CERNER CH Comment:Testing performed by : [address], [address] Protein, pl 7.2 6.5 - 8.5 g/dL CERNER CH Comment:Testing performed by : [address], [address] Albumin 3.9 3.5 - 5.0 g/dL CERNER CH Comment:Testing performed by : [address], [address] Alk phos 71 40 - 130 Units/L CERNER CH Comment:Testing performed by : [address], [place]., [address] ALT 15 7 - 45 Units/L ALLY Comment:Testing performed by : [facility], [address] [place] [address]., [address] AST 23 10 - 45 Units/L ALLY Comment:Testing performed by : [address] [address] Blood 10/12/2024 8:15 AM INSIDE SALES SUPERVISOR 10/12/2024 12:13 PM INSIDE SALES SUPERVISOR us Bear Ling MD LAB BLOOD ORDERABLES Final Result ALLY [address] Department [place] [address] * US Breast Right Limited (07/16/2024 10:02 AM INSIDE SALES SUPERVISOR) Anatomical Region Laterality Modality Breast Right Ultrasound 07/16/2024 10:2 2 AM INSIDE SALES SUPERVISOR Impressions 07/16/2024 10:22 AM INSIDE SALES SUPERVISOR Palpable area at the 2 o'clock position of the right breast most likely represents hematoma and is probably benign. OVERALL FINAL ASSESSMENT: BI-RADS Category 3: Probably Benign. RECOMMENDATION: The patient should return in 3 months time for follow-up right breast ultrasound. Electronically signed by: Marcia Mary M.D. Narrative 07/16/2024 10:22 AM INSIDE SALES SUPERVISOR EXAMINATION: RIGHT UNILATERAL DIGITAL DIAGNOSTIC MAMMOGRAM AND DIGITAL BREAST TOMOSYNTHESIS; RIGHT BREAST SONOGRAM HISTORY: Palpable focus right breast 3 weeks time. Patient is on blood thinners. Bruising is noted on the right breast. COMPARISON: Previous studies have been requested but are not available at this time. TECHNIQUE: Full field digital mammographic views of the RIGHT breast were performed, including computer aided detection (CAD) and digital breast tomosynthesis (DBT). Directed ultrasound evaluation of the RIGHT breast was performed. BREAST PARENCHYMAL COMPOSITION: There are scattered areas of fibroglandular density. MAMMOGRAM FINDINGS: A marker has been placed at site of the palpable focus. Vague density is appreciated associated with the marker without evidence of a definite mass. SONOGRAM FINDINGS: Targeted right breast ultrasound was performed in the region of interest. At the 2 o'clock position 12 cm from the nipple there is a hyperechoic oval shaped circumscribed lesion with hypoechoic cystic foci within it. This has the appearance of a hematoma. It measures 1.5 x 0.8 x 1.5 cm. This correlates with the skin bruise. us Bear Ling MD [facility] MAMMO PROCEDURES Final Result * Diagnostic Mammogram Right W Ean (07/16/2024 9:33 AM INSIDE SALES SUPERVISOR) Anatomical Region Laterality Modality Breast Right Mammography 07/16/2024 10:2 2 AM INSIDE SALES SUPERVISOR Impressions 07/16/2024 10:22 AM INSIDE SALES SUPERVISOR Palpable area at the 2 o'clock position of the right breast most likely represents hematoma and is probably benign. OVERALL FINAL ASSESSMENT: BI-RADS Category 3: Probably Benign. RECOMMENDATION: The patient should return in 3 months time for follow-up right breast ultrasound. Electronically signed by: Marcia Mary M.D. Narrative 07/16/2024 10:22 AM INSIDE SALES SUPERVISOR EXAMINATION: RIGHT UNILATERAL DIGITAL DIAGNOSTIC MAMMOGRAM AND DIGITAL BREAST TOMOSYNTHESIS; RIGHT BREAST SONOGRAM HISTORY: Palpable focus right breast 3 weeks time. Patient is on blood thinners. Bruising is noted on the right breast. COMPARISON: Previous studies have been requested but are not available at this time. TECHNIQUE: Full field digital mammographic views of the RIGHT breast were performed, including computer aided detection (CAD) and digital breast tomosynthesis (DBT). Directed ultrasound evaluation of the RIGHT breast was performed. BREAST PARENCHYMAL COMPOSITION: There are scattered areas of fibroglandular density. MAMMOGRAM FINDINGS: A marker has been placed at site of the palpable focus. Vague density is appreciated associated with the marker without evidence of a definite mass. SONOGRAM FINDINGS: Targeted right breast ultrasound was performed in the region of interest. At the 2 o'clock position 12 cm from the nipple there is a hyperechoic oval shaped circumscribed lesion with hypoechoic cystic foci within it. This has the appearance of a hematoma. It measures 1.5 x 0.8 x 1.5 cm. This correlates with the skin bruise. Bear Ling MD [facility] MAMMO PROCEDURES Final Result from Last 3 Months Insurance MEDICARE [employer] [place] [employer] [place] [facility] [employer] MEDICARE SUPPLEMENT [place] [id number] Care Teams Production Technologist Relationship Specialty Start Date End Date Bear Ling MD [address] [place] [address] PCP - General 11/01/10 Domingo Wolf MD [address] [place] [address] Supervisor [employer] Obstetrics and Gynecology 08/12/18 Dereck Burns Jr., MD [address] [place] [address] Surgeon Orthopedic Surgery 08/12/18 Eron Min MD [address] [place] [address] Consulting Physician Neurology 03/22/21
--- OUTSIDE RECORDS SUMMARY | 2024-10-14 00:33 | XMS_ITS | Continuity of Care Document ---
Author Organization [facility] Address [address] [facility] [address] [place] [address] Phone Care Team Providers Care Triple Drum Operator Name Role Phone Sunny CUENCA Kelsey Unavailable Unavailable Allergies, Adverse Reactions, Alerts Substance Reaction Status Criticality codeine Active No Information Medications Medication Instructions Dosage Effective Dates (start - stop) Status Comments clopidogrel 75 mg tablet take 1 tablet by oral route every day 75 MG - Active aspirin 81 mg tablet,delayed release take 1 tablet by oral route every day 81 MG - Active Lopressor 50 mg tablet take 1 tablet by oral route 2 times every day with meals 50 MG - Active lisinopril 10 mg-hydrochlorothiazi de 12.5 mg tablet take 1 tablet by oral route every day 1.00 tablet - Active omeprazole 20 mg capsule,delayed release take 1 capsule by oral route every day 30 minutes to 1 hour before a meal 20 MG - Active pravastatin 20 mg tablet take 2 tablet by oral route every day 40 MG - Active Calcium (unknown strength) 1 tablet by mouth once a day Not Available - Active multivitamin tablet take 1 tablet by oral route every day 1 tablet - Active Vitamin D3 25 mcg (1,000 unit) capsule take 1 by oral route every day 1 - Active Procedures Procedure Date No Charge Optomap Fundus Photos 024 Office/outpatient Visit, Est Refraction No Charge Refraction Post-op Follow-up Visit Remove Cataract, Post Op Care Laser Cataract SX With Toric Lens Remove Cataract, Insert Lens,Comanaged A IOLMaster-Professional No Charge Refraction Post-op Follow-up Visit Remove Cataract, Post Op Care Laser Cataract SX With Toric Lens Remove Cataract, Insert Lens,Comanaged M Corneal Topography IOLMaster-Technical IOLMaster-Professional No Charge Refraction Office/outpatient Visit, Est No Charge Optomap Fundus Photos 023 No Charge GDX Retina No Charge Orbscan No Charge Optomap Fundus Photos 022 No Charge GDX Retina IOLMaster-Technical No Charge Refraction Eye Exam, New Patient Advance Directives Directive Yes / No Effective Date File Name Other Directive No N/A N/A WARNING:The information contained in this section is historical and is provided for information only and does not constitute a legal document or any assurance that the information is still accurate. Please verify the information with the dubon of the legal document before using it for clinical purposes. Encounters Encounter Description Practice Location Reason(s) For Visit Diagnoses Date Provider Providers Copied on Encounter Office/outpa tient Visit, Est [facility], [address], [place], [place], [address], [place] tel:[phone] SEC Darron MAGAÑA Professional 6 month dilate (chief complaint) Dry eye syndrome of bilateral lacrimal glandsPseudop hakia Oct-0 4 Sunny OD Kelsey. [address], [place], [place], [address], [place]. tel:[phone] Referring Provider: Richard Suggs, [address], [place], [address] . tel:[phone] [facility] Eye [facility], [address], [place], [place], [address], [place] tel:[phone] SEC Darron MAGAÑA Professional No Information 4 Sunny OD Kelsey. [address], [address], [place], [place], [address], [place]. tel:[phone] Referring Provider: Jabari Duncan, [address] [address], [place], [address] . tel:[phone] [facility], [address], [place], [place], [address], [place] tel:[phone] SEC Darron MAGAÑA Professional Post-Op (chief complaint) Post op visit 4 Sunny OD Kelsey. [address] [facility] [address], [address], [place], [place], [address], [place]. tel:[phone] Referring Provider: Jabari Duncan, [address] [facility] [address], [place], [address] . tel:[phone] [facility], [address], [place], [place], [address], [place] tel:[phone] SEC Darron ARCHANA Professional Post-Op (chief complaint) Post op visit 4 Juan OD Shana. [address], [address], [place], [place], [address], [place]. tel:[phone] Referring Provider: Jabari Duncan, [address] [facility] [address], [place], [address] . tel:[phone] [facility] Eye [facility], [address], [place], [place], [address], [place] tel:[phone] [facility] No Information 4 Kamla Ramos. [address], [address], [place], [place], [address], [place]. tel:[phone] Referring Provider: Jabari Duncan, [address] [address], [place], [address] . tel:[phone] [facility], [address] [place], [place] [address] [address], [place], [place], [address], [place] [phone] [place] No Information Dec- 4 Kamla Richard. [facility], [address], [place], [place], [address], [place]. tel:[phone] Referring Provider: Richard Suggs, [facility] [address], [place], [address] . tel:[phone] [facility], [address] [place], [place] [address], [place], [place], [address], [place] [phone] SEC Dar[place] Professional 2 week postop visit (chief complaint) Post op visit 4 Sunny OD Kelsey. [address] [place] [address] [address], [address], [place], [place], [address], [place]. tel:[phone] Referring Provider: Jabari Duncan, [address] centerFan[facility] [address], [place], [address] . tel:[phone] [facility], [facility] [address], [place], [place], [address], [place] [phone] SEC [place] Professional 1 Day CE/IOL Eyehance/Le nsAR/Toric PO (chief complaint) Post op visit Nov-2 0- 4 Juan OD Shana. [facility] [address] [facility], [address], [place], [place], [address], [place]. tel:[phone] Referring Provider: Jabari Duncan, [address] [facility] [address], [place], [address] . tel:[phone] [facility], [address] [place] [address] [address], [place], [place], [address], [place] [phone] [facility] No Information 4 Kamla Ramos. [facility], [address], [place], [place], [address], [place]. tel:[phone] Referring Provider: Richard Suggs, [facility] [address], [place], [address] . tel:[phone] [facility], [facility] [address], [place], [place], [address], [place] tel:[phone] SEC [place] Same day testing prior to Cataract surgery (chief complaint) No Information 4 Kamla Ramos. [facility], [address], [place], [place], [address], [place]. tel:[phone] Referring Provider: Richard Suggs, [facility] [address], [place], [address] . tel:[phone] [facility], [facility] [address], [place], [place], [address], [place] tel:[phone] [place] No Information 4 Kamla Ramos. [facility], [address], [place], [place], [address], [place]. tel:[phone] Referring Provider: Richard Suggs, [facility] [address], [place], [address] . tel:[phone] Office/outpa tient Visit, [facility], [facility] [address], [place], [place], [address], [place] tel:[phone] SEC [place] Professional Cataract Check (chief complaint) Regular astigmatism of both eyesAge-relat ed nuclear cataract, bilateral Dec- 3 Kamla Ramos. [facility], [address], [place], [place], [address], [place]. tel:[phone] Referring Provider: Jabari Duncan, [address] [facility] [address], [place], [address] . tel:[phone] [facility], [address], [place], [place], [address], [place] tel:[phone] SEC [facility] Professional Cataract evaluation (chief complaint) Age-related nuclear cataract, bilateralPeri pheral opacity of cornea, right eyeInj conjunctiva and corneal abrasion w/o fb, left eye, initDry eye syndrome of bilateral lacrimal glands 2 Jose Alfredo Barboza. [address] [facility], [address], [place], [place], [address], [place]. tel:[phone] Specialist : Buddy Arce OD, [facility] [address] [place], [address]. tel:[phone] erring Provider: Buddy Arce OD, [facility] [address] [place], [address]. tel:[phone] Family History Family Member Type Diagnosis Age At Onset Problem Family history of Corneal di sease Payers Payer name Insurance type Covered alliance party ID Authoriza tion(s) Medicare [facility] [id number] [facility] [id number] Social History Type Description Quantity Date Captured Comments Alcohol Use Details No Caffeine Use Details Tobacco Use Status Current non-smoker Smoking Status Never smoker Non-Smoking Tobacco Use Details : No Details Available : No Details Available Sex Female Chief Complaint And Reason For Visit From encounter dated '06/08/2024 09:30'. 6 month dilate (chief complaint). Description: The 73 year old patient presents for evaluation of 6month dilate in the right eye and left eye. Pt has h/o PC/IOL and HERMINIA ou. Pt feels her vision is good. Pt did have an episode yesterday while reading flashing light temporally in OS but only last fewminutes and went away. Pt not on any eyedrops at present. Reason For Referral Reason For Referral No Information History Of Present Illness Encounter Date Complaint History Of Prese nt Illness 6 month dilate The 73 year old patient presents for evaluation of 6 month dilate in the right eye and left eye. Pt has h/o PC/IOL and HERMINIA ou. Pt feels her vision is good. Pt did have an episode yesterday while reading flashing light temporally in OS but only last few minutes and went away. Pt not on any eyedrops at present. Post-Op The 73 year old patient presents for evaluation of 2 week CE/IOL Eyehance/Toric/LensAR Post-Op in the right eye. Pt states improvement OD since last PO visit. Pt is using OTC readers (+1.50). Pt would like a glasses Rx today so she can go get Rx reading glasses made. Post-Op The 73 year old patient presents for a 1 day post op CE with Eyehance Toric IOL OD. Patient to begin Pred and Poly qid OD and Ketorolac tid OD. Patient denies any pain or discomfort. OD feels a little scratchy but not bad. 2 week postop visit The 73 year old patient presents for evaluation of 2 week postop visit in the left eye. Pt is using Pred OS qid and Ket OS tid. Pt feels her vision is good in OS> Pt has a cataract in OD. Pt is c/o of difficulty with night driving due to glare from headlights in OD. Pt. also has trouble reading small print even with glasses on . 1 Day CE/IOL Eyehanc e/LensAR/Toric PO The 73 year old patient presents for evaluation of 1 Day CE/IOL Eyehance/LensAR/Toric PO in the left eye. Pt states that yesterday and today OS is scratchy and pt states that vision in OS is still blurry but pt states that vision does seem brighter. Pt has all gtts and understands how to take then as instructed. Same day testing alek or to Cataract surgery The 72 year old patient presents for evaluation of Same day testing prior to Cataract surgery in the right eye and left eye. Cataract Check The 72 year old patient presents for evaluation of Cataract Check in the right eye and left eye. Pt reports a gradual worsening in her night time vision, seeing the television, seeing near print and having trouble at night driving OD<OS x 6 months, even with her glasses one. Pt does use OTC drops for dryness OU bid. Pt feels she is now ready for cataract surgery. Cataract evaluation The 71 year old patient presents for evaluation of Cataract evaluation in the right eye and left eye. Patient states the only problem she is having is reading small print, trouble reading labels on can good and medicine bottles with both eyes. Functional Status Date Functional Assessmen t No Information Instructions Date Instruction Additional Infor mation Impression/Plan Impression/Plan Impression/Plan Impression/Plan Impression/Plan Impression/Plan Impression/Plan Assessments Type Assessment Date assessment Dry eye syndrome of bilateral la crimal glands assessment Pseudophakia Patient Care Teams Name Effective Dates (start - stop) Status Members No Information
--- OUTSIDE RECORDS SUMMARY | 2024-10-14 00:33 | XMS_ITS | Encounter Summary ---
Author Organization [facility] Address [address] [place] [address] Phone Care Team Providers Care Bulk Delivery Driver Name Role Phone Bear Ling MD Primary Care Provider [phone] Stef Berry MD Unavailable [phone] Encounter Details Date Type Department Care Team (Late st Contact Info) Description 05/08/2024 Transcribe Orders [facility] [address] [place] [id number] Stef Berry MD [address] [facility] [address] [place] [address] Paroxysmal atrial fibrillation (HCC) (Primary Dx) Social History Tobacco Use Types Packs/Day Years Used Date Smoking Tobacco: Former Cigarettes 0.5 10 1 7 1976 Smokeless Tobacco: Never Alcohol Use Standard Drinks/Week Comments Not Currently 0 (1 standard drink = 0.6 oz pur e alcohol) [facility] Utilities Answer Date Recorded In the past 12 months has e electric, gas, oil, or water company threatened to shut off services in your home? Patient declined 02/20/2024 Social Connection and Isolation Panel [NHANES] A nswer Date Recorded In a typical week, how many times do you talk on the phone with family, friends, or neighbors? Patient declined 02/20/2024 How often do you get togethe r with friends or relatives? Patient declined 02/20/2024 How often do you attend anabaptist or christianity serv ices? Patient declined 02/20/2024 Do you belong to any clubs o r organizations such as anabaptist groups, unions, fraternal or athletic groups, or [...] medical care, and heating? Patient declined 02/20/2024 [facility] - Occupational Stress [...] any time in the past 12 m [facility], were you homeless or living in a snf (including now)? 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 Not on file Not on file Not on f ile documented as of this encounter Plan of Treatment Upcoming Encounters Date Type Department Care Team (Late st Contact Info) Description 11/09/2024 2:00 PM [facility] Office Visit [facility] - [facility] - [place] [address] [place] [address] Stef Berry MD [address] [address] documented as of this encounter Results * BASIC METABOLIC PANEL W/ CALCIUM TOTAL (05/11/2024 11:22 AM CDT) SODIUM 138 136 - 145 mmol/L 05/11/2024 1:15 PM CDT [facility] POTASSIUM 4.5 3.5 - 5.1 mmol/L 05/11/2024 1:15 PM CDT [facility] CHLORIDE 104 98 - 107 mmol/L 05/11/2024 1:15 PM CDT [facility] CO2, VENOUS 26 22 - 30 mmol/L 05/11/2024 1:15 PM CDT [facility] ANION GAP 12.5 <18.0 mmol/L 05/11/2024 1:15 PM CDT [facility] GLUCOSE 98 70 - 99 mg/dL 05/11/2024 1:15 PM CDT [facility] BUN 16 10 - 20 mg/dL 05/11/2024 1:15 PM CDT [facility] CREATININE, BLOOD 0.89 0.60 - 1.00 mg/dL 05/11/2024 1:15 PM CDT [facility] BUN/CREATININE RATIO 18 12 - 20 ratio 05/11/2024 1:15 PM CDT [facility] CALCIUM 10.2 8.7 - 10.5 mg/dL 05/11/2024 1:15 PM CDT [facility] IS THE PATIENT REQUIRED TO BE FASTING? No 05/11/2024 1:15 PM CDT [facility] GFR, ESTIMATED >60 >=60 05/11/2024 1:15 PM CDT [facility] Comment: Creatinine Clearance is the preferred criteria for selecting drug dose adjustments in renally impaired patients. The GFR is provided as additional pertinent clinical information. GFR is reported in mL/min/1.73 sq m. Calculation based on the Chronic Kidney Disease Epidemiology Collaboration (CKD- EPI) equation refit without adjustment for race. GFR, EST. >60 >=60 024 1:15 PM CDT [facility] GFR, EST. NONAFRICAN >60 >=60 05/11/2024 1:15 PM CDT [facility] Blood Venipuncture / Unknown 05/11/2024 11:22 AM CDT 05/11/2024 12:33 PM CDT us Stef Berry MD CHEMISTRY ORDERABLES Final R esult [facility] [address] [place] [address] documented in this encounter Visit Diagnoses Diagnosis Paroxysmal atrial fibrillation (HCC)- Primary Atrial fibrillation documented in this encounter Care Teams Bulk Delivery Driver Relationship Specialty Start Date End Date Anuradha, Bear Aly, MD [address] [address] PCP - General Internal Medicine 07/31/15 Stef Berry MD #2 [facility] [address] [address] Consulting Physician Interventional Cardiology 03/17/24 documented as of this encounter
--- OUTSIDE RECORDS SUMMARY | 2024-10-14 00:33 | XMS_ITS | Clinical Summary ---
Author Organization [facility] [address] Address [address] [place] [address] Phone Care Team Providers Care Semiconductor Technician Name Role Phone Anuradha Bear Lu MD Primary Care Provider [phone] Domingo Wolf MD Unavailable [phone] Katy Norton MD, Dereck Lerma Unavailable [phone] Eron Min MD Unavailable Allergies Active Allergy Reactions Criticality Noted Date [...] COLONSCOPY REFERRAL SENT New onset atrial fibrillation (CMS/[facility]) 03/09/20 24 Assessment & Plan (03/09/2024 5:25 PM CDT): [...] pain 01/22/2014 Overview (12/14/2016): Low back pain Encounters Date Type Department Care Team Description 10/12/2024 8:10 AM MECHANICAL PENCILS ASSEMBLER Lab [facility] [address] [place] [address] Encounter for Medicare annual wellness exam 09/21/2024 10:45 AM MECHANICAL PENCILS ASSEMBLER Office Visit [facility] [address] [place] [address] Eron Min MD WENDY (obstructive sleep apnea) (Primary Dx); Hypersomnia with sleep apnea; Overweight (BMI 25.0-29.9) 08/09/2024 Telephone [facility] [address] [place] [address] Bear Ling MD Request For Order(s) 08/04/2024 Telephone [facility] [address] [place] [address] Bear Ling MD Weakness - Generalized 07/30/2024 Telephone [facility] [address] [place] [address] Bear Ling MD Urinary Problem 07/19/2024 Telephone [facility] [address] [place] [address] Jose Pacheco RN 07/16/2024 10:00 AM MECHANICAL PENCILS ASSEMBLER Ancillary Procedure [facility] [address] [place] [address] Mass of upper inner quadrant of right breast 07/16/2024 9:30 AM MECHANICAL PENCILS ASSEMBLER Ancillary Procedure [facility] [address] [place] [address] Mass of upper inner quadrant of right breast from Last 3 Months Immunizations Name Administration Dates Next Due Influenza [...] 06/28/2011 ZOSTER LIVE 02/09/2016 ZOSTER Recombinant 09/16/2023,04/29/2023 Surgical History Surgery Date Site/Laterality Comments HYSTERECTOMY 09/08/2010 - 09/07/2011 precancerous cells in cervix per pt FINGER SURGERY dates unknown- L & R thumb joints KNEE SURGERY Left date unknown- torn miniscus COLONOSCOPY 07/31/2015 Medical History Medical History Date Comments Hypertension Infectious viral hepatitis Arthritis Skin cancer High cholesterol Diverticulitis Sleep apnea Colitis 02/2024 Atrial fibrillation (CMS/HCC) (HCC) 02/2024 Family History Medical History Relation Name Comments Breast cancer Daughter Heart attack Father Heart disease Father Breast cancer Mother Uterine cancer Mother Breast cancer Mother's Sister Relation Name Status Comments Daughter Father Mother Mother's Sister Social History Tobacco Use Types Packs/Day Years [...] on file Legal Sex Female 8:51 AM MECHANICAL PENCILS ASSEMBLER Gender Identity Not on file Sexual Orientation Not on file Obstetrics History Para Term AB IAB SAB Ectopic Multiple Livin g Live Births 5 4 3 1 1 4 4 Date Outcome GA Total Labor Labor//3rd Weight Sex Type Anes PTL Rosaura A1 A5 Name Clin Term Vag-S pont Living Term Vag-S pont Living Term Vag-S pont Living Para Vag-S pont Living SAB Last Filed Vital Signs Vital Sign Reading [...] 07/07/2024 8:17 AM CDT Plan of Treatment Health Maintenance Due Date Last Done Comments Colon Cancer Screening-Colonoscopy 1950 Hepatitis C Screening 1950 Hepatitis B Screening 11/26/1967 Osteoporosis Screening-Bone Density Scan 02/14/2023 02/14/2021, 02/14/2021 Breast Cancer Screening-Mammogram 11/18/2024 11/19/2023, 11/19/2023, 10/18/2022, Additional history exists Depression Screening 03/29/2025 03/29/2024, 03/26/2022, 03/22/2021 Fall Risk Assessment 03/29/2025 03/29/2024, 03/26/2022, 03/22/2021 Well Visit 65+ 03/29/2025 03/29/2024, 03/09, 03/26/2022, Additional history exists DTaP/Tdap/Td Vaccine (3 - Td or Tdap) 12/27/2025 12/28/2015, 06/28/2011 Pneumococcal vaccine 65+ Completed 09/12/2020, 11/2015 Zoster Vaccine Completed 09/16/2023, 04/09, 02/09/2016 Covid-19 Vaccine Completed 06/01/2024, , 04/23/2022, Additional history exists Influenza Vaccine Completed 06/22/2024, , 06/18/2022, Additional history exists Medical Devices Implanted Type Area Director Family Device Identifier Shelf Expiration Date Model / Serial / Lot Screws,Wire In Right Knee Knee Procedures Procedure Name Priority Date/Time Associated Diagnosis Comments EGFR Routine 10/12/2024 8:15 AM MECHANICAL PENCILS ASSEMBLER Encounter for Medicare annual wellness exam DIFFERENTIAL AUTO Routine 10/12/2024 8:1 5 AM MECHANICAL PENCILS ASSEMBLER Encounter for Medicare annual wellness exam LIPID PANEL Routine 10/12/2024 8:15 AM MECHANICAL PENCILS ASSEMBLER Encounter for Medicare annual wellness exam COMPREHENSIVE METABOLIC PANEL Routine 10/12/2024 8:15 AM MECHANICAL PENCILS ASSEMBLER Encounter for Medicare annual wellness exam CBC WITH AUTO DIFFERENTIAL Routine 10/12/2024 8:15 AM MECHANICAL PENCILS ASSEMBLER Encounter for Medicare annual wellness exam US BREAST RIGHT LIMITED Schedule Routine, Read Routine (OP Routine) 07/16/2024 10:02 AM MECHANICAL PENCILS ASSEMBLER Mass of upper inner quadrant of right breast DIAGNOSTIC MAMMOGRAM RIGHT W EAN Schedule Routine, Read Routine (OP Routine) 07/16/2024 9:33 AM MECHANICAL PENCILS ASSEMBLER Mass of upper inner quadrant of right breast from Last 3 Months Results * eGFR (10/12/2024 8:15 AM MECHANICAL PENCILS ASSEMBLER) eGFR 68 >=60 mL/min/1. 73 m2 Comment: [...] was last reviewed 2021. Testing performed by: [address] [address] Blood 10/12/2024 8:15 AM MECHANICAL PENCILS ASSEMBLER 10/12/2024 12:21 PM MECHANICAL PENCILS ASSEMBLER us Bear Ling MD LAB BLOOD ORDERABLES Final Result [facility] [address] [place] [address] * Differential, auto (10/12/2024 8:15 AM MECHANICAL PENCILS ASSEMBLER) Neutrophil abs 3.4 1.5 - 6.5 K/cumm Comment:Testing performed by : [facility], [address] [place] [address]., [address] Imm gran abs 0.0 0.0 - 0.1 K/cumm ALLY KESSLER Comment:Testing performed by : [facility], [address] [place] [address]., [address] Lymphocyte abs 1.3 0.8 - 3.3 K/cumm CERNER CH Comment:Testing performed by : [facility], [address] [place] [address]., [address] Monocyte abs 0.6 0.2 - 0.8 K/cumm CERNER CH Comment:Testing performed by : [address] [address] Eosinophil abs 0.0 0.0 - 0.5 K/cumm CERNER CH Comment:Testing performed by : [address] [address] Basophil abs 0.0 0.0 - 0.1 K/cumm CERNER CH Comment:Testing performed by : [address] [address] Neutrophil pct 63.4 % CERNER CH Comment: Interpretive Data Percent cell count reference ranges are not reported, since discordance with absolute values may lead to misinterpretation of CBC data. Current Interpretive Data was last revised on 2017. Testing performed by: [address] [address] Imm gran pct 0.2 % CERNER CH Comment: Interpretive Data Percent cell count reference ranges are not reported, since discordance with absolute values may lead to misinterpretation of CBC data. Current Interpretive Data was last revised on 2017. Testing performed by: [address] [address] Lymphocyte pct 24.7 % CERNER CH Comment: Interpretive Data Percent cell count reference ranges are not reported, since discordance with absolute values may lead to misinterpretation of CBC data. Current Interpretive Data was last revised on 2017. Testing performed by: [address] [address] Monocyte pct 11.1 % CERNER CH Comment: Interpretive Data Percent cell count reference ranges are not reported, since discordance with absolute values may lead to misinterpretation of CBC data. Current Interpretive Data was last revised on 2017. Testing performed by: [address] [address] Eosinophil pct 0.0 % CERNER CH Comment: Interpretive Data Percent cell count reference ranges are not reported, since discordance with absolute values may lead to misinterpretation of CBC data. Current Interpretive Data was last revised on 2017. Testing performed by: [address] [address] Basophil pct 0.6 % [facility] Comment: Interpretive Data Percent cell count reference ranges are not reported, since discordance with absolute values may lead to misinterpretation of CBC data. Current Interpretive Data was last revised on 2017. Testing performed by: [address] [address] Blood 10/12/2024 8:15 AM MECHANICAL PENCILS ASSEMBLER 10/12/2024 12:13 PM MECHANICAL PENCILS ASSEMBLER Bear Ling MD LAB BLOOD ORDERABLES Final Result [address] Department [place] [address] * (ABNORMAL) CBC with auto differential (10/12/2024 8:15 AM MECHANICAL PENCILS ASSEMBLER) WBC 5.3 3.8 - 9.9 K/cumm Comment:Testing performed by : [address], [address] Hgb 11.6(L) 11.9 - 15.5 g/dL [facility] Comment:Testing performed by : [address], [address] Hct 36.3 35.6 - 45.5 % CERNER Comment:Testing performed by : [address], [address] Plt 266 150 - 400 K/cumm CERNER Comment:Testing performed by : [address] [address] MPV 9.8 9.1 - 12.3 fL CERNER Comment:Testing performed by : [address], [address] RBC 3.96 3.90 - 5.20 M/cumm CERNER Comment:Testing performed by : [address], [address] MCV 91.7 81.3 - 96.4 fL CERNER Comment:Testing performed by : [facility], [address] [place] [address], [address] MCH 29.3 27.1 - 33.3 pg ALLY Comment:Testing performed by : [address], [address] MCHC 32.0(L) 32.3 - 35.7 g/dL ALLY Comment:Testing performed by : [address], [address] RDW CV 13.2 11.1 - 14.9 % ALLY Comment:Testing performed by : [facility], [address] [place] [address], [address] RDW SD 44.3 35.7 - 48.1 fL ALLY Comment:Testing performed by : [address], [address] NRBC abs 0.00 0.00 - 0.01 K/cumm ALLY Comment:Testing performed by : [address], [address] Blood 10/12/2024 8:15 AM MECHANICAL PENCILS ASSEMBLER 10/12/2024 12:13 PM MECHANICAL PENCILS ASSEMBLER Bear Ling MD LAB BLOOD ORDERABLES Final Result [address] Department [place] [address] * Lipid panel (10/12/2024 8:15 AM MECHANICAL PENCILS ASSEMBLER) Cholesterol 152 30 - 199 mg/dL Comment: [...] last revised on 2018. Testing performed by: [address] [place]., [address] Triglycerides 104 <=149 mg/dL ALLY Comment: Interpretive Data Ages < [...] last revised on 2018. Testing performed by: [address] [address] HDL 46 >=40 mg/dL ALLY Comment: Interpretive [...] last revised on 2018. Testing performed by: [address] [address] LDL, calculated 87 <=129 mg/dL ALLY Comment: Interpretive Data Ages < or = 19 years Acceptable: <110 mg/dL Borderline high: 110-129 mg/dL High: >or= 130 mg/dL Ages > or = 20 years Optimal: <100 mg/dL Near optimal: 100-129 mg/dL Borderline high: 130-159 mg/dL High: >160 mg/dL Calculated using the Deleon LDL-C estimating equation. This equation was implemented on 2024. Prior to this date LDL-C was estimated using the Friedewald equation. Literature References: 1. Expert Panel on Integrated Guidelines for Cardiovascular Health and Risk Reduction in Children and Adolescents. Pediatrics 2011;128:S213 2. NCEP Expert Panel. Circulation 2004;110:227 3. Pancho M et al. HELENA Cardiol. 2020 January 06;5(5):540-548. doi: 10.1001/jamacardio.2020.0013 Current Interpretive Data was last revised on 2024. Testing performed by: [facility], [address] [place] [address]., [address] Non-HDL Cholesterol 106 mg/dL ALLY Comment: Interpretive [...] last revised on 2018. Testing performed by: [address] [address] Chol/HDL ratio 3 ALLY Comment:Testing performed by : [address] [address] Blood 10/12/2024 8:15 AM MECHANICAL PENCILS ASSEMBLER 10/12/2024 12:13 PM MECHANICAL PENCILS ASSEMBLER Bear Ling MD LAB BLOOD ORDERABLES Final Result ALLY [address] Department [place] [address] * Comprehensive metabolic panel (10/12/2024 8:15 AM MECHANICAL PENCILS ASSEMBLER) [facility] Signature Sodium 138 135 - 145 mmol/L Comment:Testing performed by : [address] [address] Potassium, pl 4.4 3.3 - 4.9 mmol/L ALLY Comment:Testing performed by : [address] [address] Chloride 101 97 - 110 mmol/L CERNER CH Comment:Testing performed by : [facility], [address] [place] [address]., [address] CO2 26 22 - 32 mmol/L CERNER CH Comment:Testing performed by : [address] [address] Anion gap 11 2 - 15 mmol/L CERNER CH Comment:Testing performed by : [facility], [address] [place] [address]., [address] BUN 16 6 - 25 mg/dL CERNER CH Comment:Testing performed by : [facility], [address] [place] [address], [address] Creatinine 0.89 0.60 - 1.10 mg/dL CERNER CH Comment:Testing performed by : [address], [address] Glucose 112 70 - 199 mg/dL CERNER [...] classification and Diagnosis of Diabetes Diabetes Care 202; 46: S19-S40. Current interpretive data was last revised 2022. Testing performed by: [address] [address] Calcium 9.9 8.5 - 10.3 mg/dL CERNER CH Comment:Testing performed by : [address] [address] Bilirubin, total 0.2 0.1 - 1.2 mg/dL CERN[facility] CH Comment:Testing performed by : [address] [address] Protein, pl 7.2 6.5 - 8.5 g/dL C[facility] CH Comment:Testing performed by : [address] [address] Albumin 3.9 3.5 - 5.0 g/dL CERNER CH Comment:Testing performed by : [address], [address] Alk phos 71 40 - 130 Units/L ALLY Comment:Testing performed by : [facility], [address] [place] [address]., [address] ALT 15 7 - 45 Units/L ALLY Comment:Testing performed by : [facility], [address] [place] [address]., [address] AST 23 10 - 45 Units/L ALLY Comment:Testing performed by : [address] [address] Blood 10/12/2024 8:15 AM MECHANICAL PENCILS ASSEMBLER 10/12/2024 12:13 PM MECHANICAL PENCILS ASSEMBLER us Bear Ling MD LAB BLOOD ORDERABLES Final Result ALLY [id number] [place] [address] Department [place] [address] * US Breast Right Limited (07/16/2024 10:02 AM MECHANICAL PENCILS ASSEMBLER) Anatomical Region Laterality Modality Breast Right Ultrasound 07/16/2024 10:2 2 AM MECHANICAL PENCILS ASSEMBLER Impressions 07/16/2024 10:22 AM MECHANICAL PENCILS ASSEMBLER Palpable area at the 2 o'clock position of the right breast most likely represents hematoma and is probably benign. OVERALL FINAL ASSESSMENT: BI-RADS Category 3: Probably Benign. RECOMMENDATION: The patient should return in 3 months time for follow-up right breast ultrasound. Electronically signed by: Marcia Mary M.D. Narrative 07/16/2024 10:22 AM MECHANICAL PENCILS ASSEMBLER EXAMINATION: RIGHT UNILATERAL DIGITAL DIAGNOSTIC MAMMOGRAM AND [...] correlates with the skin bruise. us Bear Aly Ling MD IMG MAMMO PROCEDURES Final Result * Diagnostic Mammogram Right W Ean (07/16/2024 9:33 AM MECHANICAL PENCILS ASSEMBLER) Anatomical Region Laterality Modality Breast Right Mammography 07/16/2024 10:2 2 AM MECHANICAL PENCILS ASSEMBLER Impressions 07/16/2024 10:22 AM MECHANICAL PENCILS ASSEMBLER Palpable area at the 2 o'clock position of the right breast most likely represents hematoma and is probably benign. OVERALL FINAL ASSESSMENT: BI-RADS Category 3: Probably Benign. RECOMMENDATION: The patient should return in 3 months time for follow-up right breast ultrasound. Electronically signed by: Marcia Mary M.D. Narrative 07/16/2024 10:22 AM MECHANICAL PENCILS ASSEMBLER EXAMINATION: RIGHT UNILATERAL DIGITAL DIAGNOSTIC MAMMOGRAM AND [...] correlates with the skin bruise. us Bear Aly Anuradha MD IMG MAMMO PROCEDURES Final Result from Last 3 Months Insurance MEDICARE [employer] [place] MEDIC[place] [employer] [place] [facility] MEDICARE [employer] MEDICARE SUPPLEMENT Care Teams Semiconductor Technician Relationship Specialty Start Date End Date Bear Ling MD [address] [place] [address] PCP - General 11/01/10 Domingo Wolf MD [address] [place] [address] Tester Waste Disposal Leakage Obstetrics and Gynecology 08/12/18 Dereck Burns Jr., MD [address] [place] [address] Surgeon Orthopedic Surgery 08/12/18 Eron Min MD [address] [place] [address] Consulting Physician Neurology 03/22/21
--- OUTSIDE RECORDS SUMMARY | 2024-10-14 00:33 | XMS_ITS ---
Care Plan - [facility] Created on: October 14, 2024 DOMINIQUE HANSEN : 1950 Sex: Female Author Organization [facility] Address [address] [place] [address] Phone Care Team Providers Care Blast Furnace Keeper Name Role Phone KAYKAY ANN, AMPARO C Unavailable [phone] MILAN ANN, JANET Ashby Primary Care Provider [phone]
--- OUTSIDE RECORDS SUMMARY | 2024-10-14 00:33 | XMS_ITS | Clinical Summary ---
Author Organization [facility] Address [address] [place] [address] Phone Care Team Providers Care Fashion Consultant Sales Name Role Phone KAYKAY ANN, AMPARO Mendoza Unavailable [phone] MILAN ANN, JANET Ashby Primary Care Provider [phone] Reason for Visit and Chief Complaint ANNUAL OCCUP THER EXAM Problems Includes: Problems addressed during this encounter and other active Problems All Visits Onset Date Resolved Date Provider Condition S tatus History of Cervical Dysplasia 12/31/2016 AMPARO MCCRACKEN MD Active Last Documented On 12/31/2016 9:11AM ; [facility] Note: Unchanged Breast Fibrocystic Disease 12/24/2013 AMPARO MCCRACKEN MD Active Last Documented On 12/24/2013 9:59AM ; [facility] Note: Unchanged Plan of Treatment No Plan of Treatment Recorded Assessments Includes: Assessments from this encounter No Assessments Recorded Medical Equipment - Implanted Devices Includes: Current Devices No Medical Equipment Recorded Medications Includes: Medications discussed during this encounter and other current Medications Current Medications (continue as prescribed) [facility] Vitamin D3 25 MCG (1000 UT) Oral Tablet Chewable 0 04/28/2023 Provider: Diagnosis: Last Documented On 04/28/2023 1:06PM By James VELASQUEZ ; [facility] Calcium 600 MG Oral Tablet 04/28/2023 Provider: Diagnosis: Last Documented On 04/28/2023 1:06PM By James VELASQUEZ ; [facility] Lisinopril-hydroCHLOROthiazide 20-25MG Oral Tablet Provider: Diagnosis: one tablet Last Documented On 9 11:17AM By CAROLINA VELASQUEZ ; [facility] Pravastatin Sodium 20MG Oral Tablet 01/22/2019 Provi cesario: Diagnosis: once day Last Documented On 9 11:17AM By CAROLINA VELASQUEZ ; [facility] PriLOSEC 40 MG OR CPDR 12/24/2013 Provider: Diagnosis: Last Documented On 4 9:43AM By LUCIE OCHOA LPN ; [facility] QC Womens Daily Multivitamin OR TABS 12/24/2013 Prov ider: Diagnosis: Last Documented On 4 9:43AM By LUCIE OCHOA LPN ; [facility] Medications Administered Includes: Administered Medications from this encounter No Administered Medications Recorded Results Includes: Results discussed during this encounter No Results Recorded For Specified Dates History of Present Illness Includes: History of Present Illness from this encounter No History of Present Illness Recorded Social History No Social History Recorded - Smoking Status Unknown Medical History Includes: Medical History addressed during this encounter No Medical History Recorded Family History Includes: Family History addressed during this encounter No Family History Recorded Review of Systems Includes: Review of Systems from this encounter No Review of Systems Recorded Mental Status Includes: Mental Status from this encounter No Mental Status Recorded Functional Status Includes: Functional Status from this encounter No Functional Status Recorded Physical Exam Includes: Physical Exam from this encounter No Physical Exam Recorded Allergies Includes: Active Allergies Substance Type Reaction Onset Date Resolved Date Statu s Codeine Allergy Nausea, Vomiting , Diarrhea / Diarrheal disorder 12/20/2011 Active Last Documented On 3 1:06PM ; [facility] Insurance Includes: Active Insurance Policies Plan Name Member ID Group # Subscriber Relationship Effect mary alice Dates 1 - MEDICARE PART A CLAIMS/NGS [id number] DOMINIQUE HANSEN Self 2 - [employer] MEDICARE SUPPLEMENT [id number] PLAN F DOMINIQUE HANSEN Self Clinical Notes Includes: Clinical Notes from this encounter No Clinical Notes Recorded
[2024-10-14 07:24] VITALS: BP 109/58; PULSE 49; RESP 16; TEMP 36; O2SAT 98; BMI 28.0
[2024-10-14] MEDS: LACTATED RINGERS 1,000 ML 150 ML IV CONT (07:32)
--- NOTE | 2024-10-14 07:37 | P.PNAN_ITS ---
Anes - Initial Pre Proc Eval Procedure: Operation Date: 10/14/24 08:30 Proposed Procedures p Esophagogastroduodenoscopy & Colonoscopy - Navdeep Stinson MD Date/Time: 10/14/24 07:37 Surgeon: Navdeep Stinson MD Pre Op Diagnosis: noninfective gastroenteritis/colitis, Patient Data Age: 73 Gender: F Height: 1.78 m Weight: 88.9 kg Last Vital Signs Temp 36.0 C L 10/14/24 07:24 Pulse 49 L 10/14/24 07:24 Resp 16 10/14/24 07:24 BP 109/58 L 10/14/24 07:24 Pulse Ox 98 10/14/24 07:24 O2 Del Method Room Air 10/14/24 07:24 Allergies Allergy/AdvReac Type Severity Reaction Status Date / Time codeine AdvReac Nausea Verified 10/14/24 07:20 Home Medications ?Medication ?Instructions ?Recorded ?Confirmed ?Type cetirizine 10 mg capsule (Zyrtec) 10 mg PO DAILY PRN allergy symptoms 10/10/20 10/14/24 History cholecalciferol (vitamin D3) 10 10 mcg PO DAILY 10/10/20 10/14/24 History mcg (400 unit) capsule lisinopril 20 mg tablet 20 mg PO DAILY 10/10/20 10/14/24 History multivitamin 1 tablet PO DAILY 10/10/20 10/14/24 History omeprazole 20 mg capsule,delayed 20 mg PO DAILY 10/10/20 10/14/24 History release pravastatin 20 mg tablet 20 mg PO DAILY 10/10/20 10/14/24 History metoprolol succinate 25 mg 12.5 mg PO BID 04/27/24 10/14/24 History tablet,extended release 24 hr clopidogrel 75 mg tablet 75 mg PO DAILY 10/08/24 10/08/24 History famotidine 20 mg tablet 20 mg PO DAILY 10/08/24 10/08/24 History pantoprazole 40 mg tablet,delayed 40 mg PO DAILY 10/08/24 10/14/24 History release sucralfate 1 gram tablet 1 g PO Q6H 10/08/24 10/14/24 History Patient hx anesthesia problems: none Family hx anesthesia problems: none Results Review: All pre-operative results and documents have been reviewed as part of the pre- operative evaluation. [facility] Past Medical History Medical History (Updated 10/14/24 @ 07:38 by Guzman Garcia MD) Paroxysmal A-fib Acid reflux High cholesterol Hypertension Surgical History Surgical History Hx of knee surgery Right knee - 2015 History of lateral meniscus repair of left knee 2013 History of hysterectomy 2010 History of hand surgery Right and left thumb joint - 2010 Family History Family History Father Heart disease Mother Ovarian cancer Social History Social History Years smoked: 10 Smoking status: Former smoker Tobacco type: cigarettes Alcohol intake: never Substance use: never Substance use type: does not use Living arrangements: with family Additional living arrangements comments: with hernando Story Final PreProcedure Day of Procedure 10/14/24 07:37 Patient weight: overweight Heart: regular rate and rhythm Lungs: clear to auscultation Airway: Mallampati scale class II Neurological: alert and oriented Last oral intake: >/= 8 hours ASA classification: III Emergent: no Anesthetic plan: proceed Anesthesia type and monitoring: general GIVS and standard monitoring Results Review: All pre-operative results and documents have been reviewed as part of the pre- operative evaluation. Informed Consent: The patient's anesthetic plan and its attendant risks and benefits were discussed with the patient/family/POA. Questions were solicited and answers provided to the satisfaction of the patient/family/POA.
--- NOTE | 2024-10-14 08:08 | PM.HPGS ---
History of Present Illness History of Present Illness Consent: Risks, benefits, and alternatives have been discussed and questions answered. Patient agrees to proceed with procedure. Chief complaint: noninfective gastroenteritis/colitis, Narrative: Azul Her is a 73 year old female with abdominal pain and previous colitis, now doing ok. Last colonoscopy 2020 with diverticulosis and recommendation to repeat in 10 years Review of Systems Review of Systems: All systems reviewed & are unremarkable except as noted in HPI and below PMFSH Past Medical History Medical History (Updated 10/14/24 @ 08:13 by Navdeep Stinson MD) Abdominal pain History of colitis Paroxysmal A-fib Acid reflux High cholesterol Hypertension Surgical History Surgical History Hx of knee surgery Right knee - 2015 History of lateral meniscus repair of left knee 2013 History of hysterectomy 2010 History of hand surgery Right and left thumb joint - 2010 Family History Family History Father Heart disease Mother Ovarian cancer Social History Social History Years smoked: 10 Smoking status: Former smoker Tobacco type: cigarettes Alcohol intake: never Substance use: never Substance use type: does not use Living arrangements: with family Additional living arrangements comments: with sp Meds Home Medications and Allergies Home Medications ?Medication ?Instructions ?Recorded ?Confirmed ?Type cetirizine 10 mg capsule (Zyrtec) 10 mg PO DAILY PRN allergy symptoms 10/10/20 10/14/24 History cholecalciferol (vitamin D3) 10 10 mcg PO DAILY 10/10/20 10/14/24 History mcg (400 unit) capsule lisinopril 20 mg tablet 20 mg PO DAILY 10/10/20 10/14/24 History multivitamin 1 tablet PO DAILY 10/10/20 10/14/24 History omeprazole 20 mg capsule,delayed 20 mg PO DAILY 10/10/20 10/14/24 History release pravastatin 20 mg tablet 20 mg PO DAILY 10/10/20 10/14/24 History metoprolol succinate 25 mg 12.5 mg PO BID 04/27/24 10/14/24 History tablet,extended release 24 hr clopidogrel 75 mg tablet 75 mg PO DAILY 10/08/24 10/08/24 History famotidine 20 mg tablet 20 mg PO DAILY 10/08/24 10/08/24 History pantoprazole 40 mg tablet,delayed 40 mg PO DAILY 10/08/24 10/14/24 History release sucralfate 1 gram tablet 1 g PO Q6H 10/08/24 10/14/24 History Allergies Allergy/AdvReac Type Severity Reaction Status Date / Time codeine AdvReac Nausea Verified 10/14/24 07:20 Vital Signs Vital Signs - 24 hr 10/14/24 07:24 Temperature 96.8 F L Pulse Rate 49 L Respiratory Rate 16 Blood Pressure 109/58 L Pulse Oximetry 98 Oxygen Delivery Room Air Exam Const: General: comfortable and no acute distress HENMT: Face/Nose/Sinus: Normal nares present Eyes: General: appearance normal, both eyes and all related structures Neck: Neck: no JVD Resp: Auscultation: clear to auscultation bilaterally Cardio: Rate: regular rate Rhythm: regular rhythm GI: Inspection: non-distended GI Palp: Yes Soft to palpation Skin: General skin exam: normal color Neuro: General: gait normal Speech: normal speech Extrem: General: normal to inspection Psych: Mental Status: mental status grossly normal Assessment and Plan Assessment and plan (1) History of colitis: Code(s): Z87.19 - Personal history of other diseases of the digestive system Status: Acute Assessment and Plan: colonoscopy (2) Abdominal pain: Code(s): R10.9 - Unspecified abdominal pain Status: Acute Assessment and Plan: egd
--- NOTE | 2024-10-14 08:26 | SUR.OPER ---
EGD: start 08:15, end 05:18 Colonoscopy: start 08:21, end 08:30
[2024-10-14 08:31] VITALS: BP 135/52; PULSE 48; RESP 20; O2SAT 98
[2024-10-14 08:41] VITALS: BP 105/58; PULSE 48; RESP 14; O2SAT 98
[2024-10-14 08:51] VITALS: BP 112/56; PULSE 57; RESP 17; O2SAT 98
== END 2024-10-14 09:00 | disposition home or self-care (01) ==
PROVIDERS: PCP Internal Medicine Infectious Disease; Visit Provider Internal Medicine Gastroenterology
PROC: 0DJ08ZZ Inspection of Upper Intestinal Tract, Via Natural or Artificial Opening Endoscopic (ICD-10-PCS; CPT 45378; principal; 2024-10-14 08:30)
DX: Z09 Encounter for follow-up examination after completed treatment for conditions other than malignant neoplasm (principal); K57.30 Diverticulosis of large intestine without perforation or abscess without bleeding; K64.8 Other hemorrhoids; R10.13 Epigastric pain; K44.9 Diaphragmatic hernia without obstruction or gangrene; Z87.19 Personal history of other diseases of the digestive system; Z87.891 Personal history of nicotine dependence
CPT/HCPCS: 45378; 43239; 88305; 88342; J2704; J7120